=== PATIENT | male | born 1985 | race Caucasian/White ===

== ENCOUNTER 2021-09-23 19:47 | Emergency (ER) | payer SELFPAY ==
[~2021-09-23] VITALS: Ht 175.3 cm; Wt 115.7 kg
[~2021-09-23 19:47] MED LIST: ACET325 PO; AMOCLA500 PO; AMOCLA875 PO; AMOX500 PO; BENADRYL PRN; Bactrim Ds Tab1 EACH PO; CEPH500 PO; CIPR500 PO; HYDACE5 PO; HYDMOR2 PO; IBUP600 PO; NAPR375 PO; NAPR500 PO; NAPR550 PO; OXYACE5T PO; PENVK500 PO; PRED20 PO; PROM25 PO; RXCODACET PO; RXHYDACE PO; RXHYDMOR2 PO; SULTRIDS PO; Sudafed PO; TAMS.4ER PO; TRAM50 PO; [UNRECOGNIZED DRUG - OTHER]; [UNRECOGNIZED DRUG - REMARK]
[2021-09-23 21:01] LABS: BASOPHILS ABSOLUTE AUTO 0.02 K/mm3 (0.00-0.23); BASOPHILS PERCENT AUTO 0 % (0-2); EOSINOPHILS ABSOLUTE AUTO 0.14 K/mm3 (0.00-0.68); EOSINOPHILS PERCENT AUTO 2 % (0-6); Hemoglobin 10.7 g/dL (13.5-17.5); IMMATURE GRAN ABSOLUTE AUTO 0.07 K/mm3 (0.00-0.10); IMMATURE GRAN PERCENT AUTO 1 % (0-1); LYMPHOCYTES ABSOLUTE AUTO 2.31 K/mm3 (0.84-5.20); LYMPHOCYTES PERCENT AUTO 28 % (21-46); MONOCYTES ABSOLUTE AUTO 0.82 K/mm3 (0.16-1.47); MONOCYTES PERCENT AUTO 10 % (4-13); Mean Corpuscular HGB 26.3 pg (26.0-34.0); Mean Corpuscular HGB Conc 31.5 g/dL (31.5-36.5); Mean Corpuscular Volume 84 fL (80-100); Mean Platelet Volume 9.2 fL (9.1-12.4); NEUTROPHILS ABSOLUTE AUTO 4.82 K/mm3 (1.96-9.15); NEUTROPHILS PERCENT AUTO 59 % (41-73); Platelet Count 260 K/mm3 (150-400); RDW Coefficient Variation 13.4 % (11.7-14.2); RDW Standard Deviation 41.4 fL (35.1-46.3); Red Blood Cell Count 4.07 M/mm3 (4.30-5.90); White Blood Cell Count 8.18 K/mm3 (4.00-11.30)
[2021-09-23 21:29] LABS: Alanine Aminotransfer (ALT/SGP 63 U/L (12-78); Albumin, Blood 2.6 g/dL (3.4-5.0); Albumin/Globulin Ratio 0.4 (0.8-1.8); Alk Phos 68 U/L (50-136); Anion Gap 4 mmol/L (6-16); Aspartate Aminotrans (AST/SGOT 58 U/L (12-37); Bilirubin, Total 0.3 mg/dL (0.1-1.0); Blood Urea Nitrogen 14 mg/dL (8-24); Bun/Creatinine Ratio 18.2 (12.0-20.0); CO2, Blood 29 mmol/L (21-32); Calcium, Blood 9.1 mg/dL (8.5-10.1); Chloride, Blood 102 mmol/L (98-108); Creatinine, Blood 0.77 mg/dL (0.60-1.20); Glomerular Filtration Rate >60 (60-); Glucose, Blood 105 mg/dL (70-99); Potassium, Blood 4.4 mmol/L (3.5-5.5); Sodium, Blood 135 mmol/L (136-145); Total Protein, Blood 9.6 g/dL (6.4-8.2)
[2021-09-23] MEDS ORDERED: CEPH500 PO (22:29)
== END 2021-09-23 22:37 | disposition home or self-care (01) ==
LOC: ER 19:47
PROVIDERS: Physician Assistant
DX: L03.115 Cellulitis of right lower limb (principal); L03.116 Cellulitis of left lower limb; E11.9 Type 2 diabetes mellitus without complications; F17.200 Nicotine dependence, unspecified, uncomplicated
CPT/HCPCS: 36415; 80053; 83605; 85025; 85651; 86140; 99284; A9270; J1885; J7030

== ENCOUNTER 2021-12-19 05:28 | Emergency (ER) | payer OTHER ==
[~2021-12-19] VITALS: Ht 175.3 cm; Wt 104.3 kg
[2021-12-19 06:21] LABS: BASOPHILS ABSOLUTE AUTO 0.03 K/mm3 (0.00-0.23); BASOPHILS PERCENT AUTO 0 % (0-2); EOSINOPHILS ABSOLUTE AUTO 0.08 K/mm3 (0.00-0.68); EOSINOPHILS PERCENT AUTO 1 % (0-6); Hematocrit 34.3 % (37.0-53.0); Hemoglobin 10.6 g/dL (13.5-17.5); IMMATURE GRAN ABSOLUTE AUTO 0.06 K/mm3 (0.00-0.10); IMMATURE GRAN PERCENT AUTO 1 % (0-1); LYMPHOCYTES ABSOLUTE AUTO 2.99 K/mm3 (0.84-5.20); LYMPHOCYTES PERCENT AUTO 23 % (21-46); MONOCYTES ABSOLUTE AUTO 0.94 K/mm3 (0.16-1.47); MONOCYTES PERCENT AUTO 7 % (4-13); Mean Corpuscular HGB 25.5 pg (26.0-34.0); Mean Corpuscular HGB Conc 30.9 g/dL (31.5-36.5); Mean Corpuscular Volume 83 fL (80-100); Mean Platelet Volume 9.7 fL (9.1-12.4); NEUTROPHILS ABSOLUTE AUTO 8.97 K/mm3 (1.96-9.15); NEUTROPHILS PERCENT AUTO 69 % (41-73); Platelet Count 240 K/mm3 (150-400); Red Blood Cell Count 4.15 M/mm3 (4.30-5.90); White Blood Cell Count 13.07 K/mm3 (4.00-11.30)
[2021-12-19 06:46] LABS: Alanine Aminotransfer (ALT/SGP 44 U/L (12-78); Albumin, Blood 2.9 g/dL (3.4-5.0); Albumin/Globulin Ratio 0.5 (0.8-1.8); Alk Phos 60 U/L (50-136); Anion Gap 4 mmol/L (6-16); Aspartate Aminotrans (AST/SGOT 34 U/L (12-37); Bilirubin, Total 0.3 mg/dL (0.1-1.0); Blood Urea Nitrogen 11 mg/dL (8-24); Bun/Creatinine Ratio 9.6 (12.0-20.0); CO2, Blood 31 mmol/L (21-32); Calcium, Blood 8.7 mg/dL (8.5-10.1); Chloride, Blood 103 mmol/L (98-108); Creatinine, Blood 1.14 mg/dL (0.60-1.20); Globulin, Blood 5.7 g/dL (2.2-4.0); Glomerular Filtration Rate >60 (60-); Glucose, Blood 91 mg/dL (70-99); Potassium, Blood 3.6 mmol/L (3.5-5.5); Sodium, Blood 138 mmol/L (136-145); Total Protein, Blood 8.6 g/dL (6.4-8.2)
[2021-12-19] MEDS ORDERED: FURO20 PO (07:27)
[2021-12-19] MEDS ORDERED: CLIN300 PO (07:27)
[2021-12-19] MEDS ORDERED: POTA10T PO (07:27)
== END 2021-12-19 08:15 | disposition home or self-care (01) ==
LOC: ER 05:28
PROVIDERS: Emergency Medicine
DX: L03.116 Cellulitis of left lower limb (principal); L03.115 Cellulitis of right lower limb; E11.9 Type 2 diabetes mellitus without complications; F17.210 Nicotine dependence, cigarettes, uncomplicated
CPT/HCPCS: 36415; 80053; 83605; 85025; 99283-25

== ENCOUNTER 2022-03-11 18:01 | Emergency (ER) | payer OTHER ==
[~2022-03-11] VITALS: Ht 172.7 cm; Wt 108.9 kg
[~2022-03-11 18:01] MED LIST changes: +CLIN300 PO; +FURO20 PO; +POTA10T PO
[2022-03-11] MEDS ORDERED: SILVADENE20 G1 TOP ×2 (18:13→18:39)
== END 2022-03-11 18:39 | disposition home or self-care (01) ==
LOC: ER 18:01
DX: Z76.0 Encounter for issue of repeat prescription (principal); E11.9 Type 2 diabetes mellitus without complications; F17.210 Nicotine dependence, cigarettes, uncomplicated; Z79.899 Other long term (current) drug therapy
CPT/HCPCS: 99281

== ENCOUNTER 2022-03-20 03:34 | Day surgery (SDC) | payer OTHER ==
[~2022-03-20 03:34] MED LIST changes: +SILVADENE20 G1 TOP
== END 2022-03-20 23:18 | disposition home or self-care (01) ==
LOC: WOUND 03:34
DX: E11.622 Type 2 diabetes mellitus with other skin ulcer (principal); L97.812 Non-pressure chronic ulcer of other part of right lower leg with fat layer exposed; L97.322 Non-pressure chronic ulcer of left ankle with fat layer exposed; L97.822 Non-pressure chronic ulcer of other part of left lower leg with fat layer exposed; L03.115 Cellulitis of right lower limb; I87.2 Venous insufficiency (chronic) (peripheral); R60.0 Localized edema; F17.200 Nicotine dependence, unspecified, uncomplicated
CPT/HCPCS: A9270; G0463

== ENCOUNTER 2022-06-02 01:37 | Emergency (ER) | payer OTHER ==
[~2022-06-02] VITALS: Ht 172.7 cm; Wt 102.1 kg
== END 2022-06-02 02:49 | disposition home or self-care (01) ==
LOC: ER 01:37
DX: I83.019 Varicose veins of right lower extremity with ulcer of unspecified site (principal); L97.919 Non-pressure chronic ulcer of unspecified part of right lower leg with unspecified severity
CPT/HCPCS: 99282

== ENCOUNTER → 2022-07-28 | Outpatient (CLI) | payer OTHER ==
[~2022-07-28] MED LIST changes: +BUSP10 PO; +HYDMOR4 PO
== END | disposition home or self-care (01) ==
LOC: LAB SHORT 17:06 → LAB 17:06
DX: L03.115 Cellulitis of right lower limb (principal)
CPT/HCPCS: 87070; 87075; 87147; 87205

== ENCOUNTER → 2022-08-03 | Outpatient (CLI) | payer OTHER ==
[2022-08-03 17:15] LABS: Albumin, Blood 2.1 g/dL (3.4-5.0); Albumin/Globulin Ratio 0.4 (0.8-1.8); Bilirubin, Direct 0.1 mg/dL (0.0-0.3); Bilirubin, Indirect 0.1 mg/dL (0.1-0.7); Bilirubin, Total 0.2 mg/dL (0.1-1.0); Bun/Creatinine Ratio 10.6 (12.0-20.0); Calcium, Blood 8.3 mg/dL (8.5-10.1); Creatinine, Blood 1.13 mg/dL (0.60-1.20); Globulin, Blood 5.3 g/dL (2.2-4.0); Potassium, Blood 3.6 mmol/L (3.5-5.5); Total Protein, Blood 7.4 g/dL (6.4-8.2)
[2022-08-05 06:11] LABS: HIV AB/P24 AG SCREEN Non Reactive (Non Reactive)
== END | disposition home or self-care (01) ==
LOC: LAB 17:01 → LAB SHORT 17:01
PROVIDERS: Family Medicine
DX: F11.20 Opioid dependence, uncomplicated (principal)
CPT/HCPCS: 80053; 82248; 86592; 86803; 87389

== ENCOUNTER 2022-09-06 18:38 | Emergency (ER) | payer OTHER | END 2022-09-06 20:25 | disposition home or self-care (01) | DX: E11.622 Type 2 diabetes mellitus with other skin ulcer (principal); L97.929 Non-pressure chronic ulcer of unspecified part of left lower leg with unspecified severity; L97.919 Non-pressure chronic ulcer of unspecified part of right lower leg with unspecified severity; F17.210 Nicotine dependence, cigarettes, uncomplicated ==

== ENCOUNTER 2022-09-22 17:53 | Emergency (ER) | payer OTHER ==
[~2022-09-22] VITALS: Ht 167.6 cm; Wt 97.5 kg
== END 2022-09-22 23:41 | disposition home or self-care (01) ==
LOC: ER 17:53
DX: E11.622 Type 2 diabetes mellitus with other skin ulcer (principal); L98.499 Non-pressure chronic ulcer of skin of other sites with unspecified severity; E11.42 Type 2 diabetes mellitus with diabetic polyneuropathy; F17.210 Nicotine dependence, cigarettes, uncomplicated
CPT/HCPCS: 99282

== ENCOUNTER 2022-10-10 21:17 | Observation (INO) | payer OTHER ==
[~2022-10-10] VITALS: Ht 177.8 cm; Wt 94.1 kg
[2022-10-10 22:30] LABS: BASOPHILS ABSOLUTE AUTO 0.03 K/mm3 (0.00-0.23); BASOPHILS PERCENT AUTO 0 % (0-2); EOSINOPHILS ABSOLUTE AUTO 0.14 K/mm3 (0.00-0.68); EOSINOPHILS PERCENT AUTO 1 % (0-6); Hemoglobin 9.5 g/dL (13.5-17.5); IMMATURE GRAN ABSOLUTE AUTO 0.04 K/mm3 (0.00-0.10); IMMATURE GRAN PERCENT AUTO 0 % (0-1); LYMPHOCYTES PERCENT AUTO 10 % (21-46); MONOCYTES PERCENT AUTO 10 % (4-13); Mean Corpuscular HGB 22.6 pg (26.0-34.0); Mean Corpuscular HGB Conc 29.7 g/dL (31.5-36.5); Mean Corpuscular Volume 76 fL (80-100); Mean Platelet Volume 9.3 fL (9.1-12.4); NEUTROPHILS ABSOLUTE AUTO 8.76 K/mm3 (1.96-9.15); NEUTROPHILS PERCENT AUTO 78 % (41-73); Platelet Count 299 K/mm3 (150-400); RDW Coefficient Variation 15.3 % (11.7-14.2); RDW Standard Deviation 41.9 fL (35.1-46.3); White Blood Cell Count 11.17 K/mm3 (4.00-11.30)
[2022-10-10 22:47] LABS: Magnesium, Blood 1.8 mg/dL (1.6-2.4)
[2022-10-10 22:48] LABS: International Normalized Ratio 1.12; Prothrombin Time Results 11.7 Sec (9.7-11.5)
[2022-10-10 22:49] LABS: Alanine Aminotransfer (ALT/SGP 59 U/L (12-78); Albumin, Blood 2.2 g/dL (3.4-5.0); Albumin/Globulin Ratio 0.4 (0.8-1.8); Alk Phos 48 U/L (50-136); Anion Gap 3 mmol/L (6-16); Aspartate Aminotrans (AST/SGOT 52 U/L (12-37); Bilirubin, Direct <0.1 mg/dL (0.0-0.3); Bilirubin, Indirect Unable to Calculate mg/dL (0.1-0.7); Bilirubin, Total 0.2 mg/dL (0.1-1.0); Blood Urea Nitrogen 15 mg/dL (8-24); Bun/Creatinine Ratio 18.1 (12.0-20.0); CO2, Blood 31 mmol/L (21-32); Calcium, Blood 8.1 mg/dL (8.5-10.1); Chloride, Blood 104 mmol/L (98-108); Creatinine, Blood 0.83 mg/dL (0.60-1.20); Glomerular Filtration Rate 116 (60-); Glucose, Blood 89 mg/dL (70-99); Phosphorus, Blood 2.5 mg/dL (2.5-4.9); Sodium, Blood 138 mmol/L (136-145); Total Protein, Blood 7.2 g/dL (6.4-8.2)
[2022-10-10] MEDS ORDERED: METF500 PO (22:50)
[2022-10-11 02:44] LABS: U Amphetamine Screen DETECTED; U Barbituate Screen Not Detected; U Benzodiazapine Screen Not Detected; U Buprenorphine Screen Not Detected; U Cannabinoids Screen Not Detected; U Cocaine Screen Not Detected; U Methadone Screen Not Detected; U Methamphetamine Screen DETECTED; U Opiates Screen DETECTED; U Oxycodone Screen Not Detected; U Phencyclidine Screen Not Detected; U Propoxyphene Screen Not Detected
--- NOTE | 2022-10-11 03:36 | NUR ---
PATIENT IS A NEW ADMIT FROM THE ED. AXOX 4 AND ABLE TO SELF SLIDE OVER FROM GURNEY TO BED. REPORTS CAN'T WALK ON ULCERATIVE WOUNDS TO BLE. USES CRUTHCES AT HOME. DENIES CHEST PAIN, SOB, AND N/V. PHOTO AND BLOOD CONSENT SIGNED AND IN CHART. BLE WOUND PHOTOS TAKEN AND IN CHART. REPORTS NON-COMPLIANT WITH WOUND CLINIC. REPORTS CHRONIC WOUNDS X TWO PLUS YEARS OLD. FOUL ODOR WITH PURULENT DRAINAGE. HX METH-FENTANYL USE. REPORTS USING METH DAILY. URINE COLLECTED AND SENT TO LAB. ON ROOM AIR. POWERGLIDE PLACED IN ED. NS AT 125 mL/HR AFTER IV VANCO INFUSED. VSS/AFEBRILE. ORIENTED TO ROOM AND CALL LIGHT SYSTEM. FOOD ITEMS GIVEN PER DIET ORDER. WCTM.
--- NOTE | 2022-10-11 07:04 | NUR ---
PATIENT HAVING INCREASED AGITATION WHEN IV PUMP STARTED TO BEEP. HE THREW LARGE WATER CONTAINER ON FLOOR. PULLED IV PB LINE OFF PUMP AND THREW ACROSS ROOM. NS INFUSING LINE COMPROMISED AND LEAKING ON FLOOR FROM HIM PULLING ON IT. PATIENT CONTINUED TO YELL AND SCREAM. REPORTED TO ONCOMING RN TO RESTART NS @ 125mL/HR.
--- NOTE | 2022-10-11 17:48 | NUR ---
SHIFT SUMMARY PTN WITH LOWER EXTREMITY CELLULITIS AND WOUNDS. WOUND CARE CONSULT ORDERED. TODAY WE CLEANED AND DRESSED THE WOUNDS WITH XEROFORM AND COVERED WITH KERLIX. PTN LEGS MORE COMFORTABLE AFTER DRESSED AND TORADOL FOR PAIN. PTN HAD SOME OUTBURSTS EARLY IN SHIFT, BUT HAS SETTLED TO A BETTER DEMEANER THIS AFTERNOON. HIS LEGS JUMP OR TWITCH, THOUGH HE HAS RESTED SOME. ANTIBIOTICS BEING INFUSED. PICTURES OF WOUNDS PLACED IN THE CHART ON LAST SHIFT. CONTINUE TO MONITOR.
[2022-10-12 02:39] LABS: Vancomycin, Trough 16.3 ug/mL (5.0-10.0)
--- NOTE | 2022-10-12 06:04 | NUR ---
DIRECTOR OF OPTIMIZATION SUMMARY: A&Ox2-3 WITH INTERMITTENT CONFUSION REQUIRING REORIENTATION. HAVING INCREASED SPASTIC MOVEMENTS OF LIMBS D/T DRUG WITHDRAWALS. GIVEN ORDER FOR ONE TIME DOSE OF HYDROXYZINE 25MG WITH NO RELIEF OF Sx. PRN TRAMADOL AND APAP WITHOUT RELIEF. COMPLETE BED CHANGE D/T BM SOIL AND DECREASED AWARENESS OF BODY FUNCTIONS. POWERGLIDE SUSAN CONTINUOUSLY OCCLUDING; HAS TAKEN SEVERAL HOURS FOR ABx TO INFUSE AND HAS THEREFORE GOTTEN BEHIND ABx SCHEDULE. NEW POWERGLIDE PLACED IN LUE THIS AM. PATENT, FLUSHES AND IS INFUSING 0200 VANCO AT THIS TIME. CONTINUES TO HAVE EXTREMELY SPASTIC MOVEMENTS OF EXTREMITIES AND MUMBLING NONSENSICALS, BUT WILL CLEARLY COMMUNICATE NEEDS WHEN NOT TRYING TO SLEEP. VSS, THOUGH LOW-GRADE FEVER LAST NIGHT. WILL REPORT TO ONCOMING RN.
--- NOTE | 2022-10-12 08:00 | NUR ---
pt laying in bed with eyes closed, wakes easily, is refusing cbg's, asked him about it, he said he didn't know why, a/ox3, lungs are dim with fine crackles to bases, on r/a, resp even and unlabored, no cough noted, hrr, power glide to asaf site is clear and patent, using urinal to void, can be incont, has wounds to b/l le, dressings in place, will change today, mamorena, bed rest, hortensia, call light in reach.
--- NOTE | 2022-10-12 13:01 | NUR ---
pt vomited all over floor and bedside table, zofran administered, pt not eating lunch, did allow kiln operator to check blood glucose. call light in reach.
--- NOTE | 2022-10-12 16:58 | NUR ---
pt dressings were changed, they were pretty wet, redressed the same as what was on. linen changed, new gown placed, periarea cleaned. warm blanket given and tramadol for comfort. call light in reach.
--- NOTE | 2022-10-12 18:41 | NUR ---
no acute changes this shift, is allowing blood glucose to be checked, stated her really didn't feel good this afternoon this was reported to Dr. Turpin, had dressings changed, wound care nurse will be in tomorrow, no further changes this shift. call light in reach.
[2022-10-13 05:46] LABS: Hematocrit 28.9 % (37.0-53.0); Hemoglobin 8.7 g/dL (13.5-17.5); Mean Corpuscular HGB 22.3 pg (26.0-34.0); Mean Corpuscular HGB Conc 30.1 g/dL (31.5-36.5); Mean Corpuscular Volume 74 fL (80-100); Mean Platelet Volume 10.1 fL (9.1-12.4); Platelet Count 243 K/mm3 (150-400); RDW Coefficient Variation 15.7 % (11.7-14.2); RDW Standard Deviation 41.1 fL (35.1-46.3)
[2022-10-13 06:10] LABS: BASOPHILS PERCENT MAN 0 % (0-2); EOSINOPHILS PERCENT MAN 0 % (0-6); LYMPHOCYTES % ATYPICAL MANUAL 2 % (0-0); LYMPHOCYTES ABSOLUTE MAN 0.94 K/mm3 (0.84-5.20); LYMPHOCYTES PERCENT MAN 21 % (21-46); MONOCYTES ABSOLUTE MAN 0.49 K/mm3 (0.16-1.47); MONOCYTES PERCENT MAN 12 % (4-13); MYELOCYTE ABSOLUTE MAN 0.04 K/mm3 (0.00-0.00); MYELOCYTE PERCENT MAN 1 % (0-0); NEUTROPHILS ABSOLUTE MAN 2.62 K/mm3 (1.96-9.15); SEG NEUTROPHILS PERCENT MAN 64 % (41-73); TOTAL CELLS COUNTED 100
[2022-10-13 06:47] LABS: Bun/Creatinine Ratio 9.1 (12.0-20.0); Calcium, Blood 7.7 mg/dL (8.5-10.1); Creatinine, Blood 0.77 mg/dL (0.60-1.20); Potassium, Blood 3.2 mmol/L (3.5-5.5)
--- NOTE | 2022-10-13 07:33 | NUR ---
TRIAL PARALEGAL SUMMARY: A&Ox4. MUCH MORE ORIENTED AND COOPERATIVE WITH CARE THAN HE WAS LAST NIGHT. CALLS APPROPRIATELY AND IS ABLE TO COMMUNICATE NEEDS. POWERGLIDE IN MATT DRAWS AND FLUSHES WITHOUT DIFFICULTY. LABS DRAWN THIS AM AND CAP CHANGED. CONTINUES TO LAY IN BED AND HAS YET TO TRANSFER OR AMBULATE. REQUESTING FREQUENT SNACKS. NO ACUTE CONCERNS T/O THE NIGHT. SIGNIFICANT IMPROVEMENT IN SPASTICITY OF AND FLAILING OF LIMBS. ANTICIPATE WOUND CARE CONSULT TODAY. REPORT TO ONCOMING RN.
[2022-10-13 09:46] LABS: Vancomycin, Trough 17.3 ug/mL (5.0-10.0)
[2022-10-13] MEDS ORDERED: VISBIOME 112.51 EACH PO (12:15)
[2022-10-13] MEDS ORDERED: AMOCLA875 PO (12:15)
--- NOTE | 2022-10-13 14:44 | NUR ---
DISCHARGE SUMMARY PATIENT ORIENTED WHEN AWAKE. PROJECTILE VOMITED X1 THIS AM. OTHERWISE TOLERATING ADA DIET. BLE CELLULITIS WOUND DRESSING CHANGED BY WOUND RN. DISCHARGE ORDERS GIVEN. DISCHARGE INSTRUCTIONS GIVEN ON WOUND CARE, NEW RXS, AND FOLLOW UP WITH WOUND CLINIC AND PCP. MICHAEL NIEVES. PATIENT LEFT UNIT AT 1320 VIA WHEELCHAIR FOR HOME VIA TAXI.
== END 2022-10-13 13:24 | disposition home or self-care (01) ==
LOC: ER 21:17 → MEDS 21:18
PROVIDERS: Emergency Medicine; Internal Medicine; Nurse Practitioner Acute Care; ADMIT Family Medicine
DX: L03.116 Cellulitis of left lower limb (principal); L03.115 Cellulitis of right lower limb; E11.9 Type 2 diabetes mellitus without complications; F15.10 Other stimulant abuse, uncomplicated; B19.20 Unspecified viral hepatitis C without hepatic coma; M17.0 Bilateral primary osteoarthritis of knee; M19.072 Primary osteoarthritis, left ankle and foot; M19.071 Primary osteoarthritis, right ankle and foot; S81.802A Unspecified open wound, left lower leg, initial encounter; S81.801A Unspecified open wound, right lower leg, initial encounter
CPT/HCPCS: 73701; 80048; 80053; 80202; 82248; 82947; 83605; 83735; 84100; 85025; 85610; 85730; 87040; 93005; 93010; 96361; 96365; 96366; 96367; 96368; 96372; 96375; 96376; 99285-25; A9270; C1751; G0378; J0295; J1170; J1650; J1885; J2405; J2543; J3370; J7030; J7050; Q9967

== ENCOUNTER 2022-11-04 08:51 | Inpatient (IN) | payer OTHER ==
[~2022-11-04] VITALS: Ht 172.7 cm; Wt 73.2 kg
[~2022-11-04 08:51] MED LIST changes: +METF500 PO; +VISBIOME 112.51 EACH PO
[2022-11-04 12:51] LABS: BASOPHILS ABSOLUTE AUTO 0.03 K/mm3 (0.00-0.23); BASOPHILS PERCENT AUTO 0 % (0-2); EOSINOPHILS ABSOLUTE AUTO 0.18 K/mm3 (0.00-0.68); EOSINOPHILS PERCENT AUTO 1 % (0-6); IMMATURE GRAN ABSOLUTE AUTO 0.06 K/mm3 (0.00-0.10); IMMATURE GRAN PERCENT AUTO 0 % (0-1); LYMPHOCYTES ABSOLUTE AUTO 1.63 K/mm3 (0.84-5.20); LYMPHOCYTES PERCENT AUTO 12 % (21-46); MONOCYTES ABSOLUTE AUTO 1.33 K/mm3 (0.16-1.47); MONOCYTES PERCENT AUTO 10 % (4-13); Mean Corpuscular HGB 22.2 pg (26.0-34.0); Mean Corpuscular Volume 74 fL (80-100); Mean Platelet Volume 9.4 fL (9.1-12.4); NEUTROPHILS PERCENT AUTO 76 % (41-73); Platelet Count 328 K/mm3 (150-400); RDW Coefficient Variation 15.1 % (11.7-14.2); Red Blood Cell Count 4.06 M/mm3 (4.30-5.90); White Blood Cell Count 13.53 K/mm3 (4.00-11.30)
[2022-11-04 13:06] LABS: Albumin, Blood 1.9 g/dL (3.4-5.0); Albumin/Globulin Ratio 0.4 (0.8-1.8); Bilirubin, Total 0.2 mg/dL (0.1-1.0); Bun/Creatinine Ratio 9.8 (12.0-20.0); Calcium, Blood 8.5 mg/dL (8.5-10.1); Creatinine, Blood 1.22 mg/dL (0.60-1.20); Globulin, Blood 4.8 g/dL (2.2-4.0); Potassium, Blood 3.1 mmol/L (3.5-5.5); Total Protein, Blood 6.7 g/dL (6.4-8.2)
[2022-11-04 16:33] VITALS: BP 131/74
--- NOTE | 2022-11-04 17:23 | NUR ---
PT ARRIVED TO THE MEDICAL FLOOR VIA GURNEY FROM THE ER. PT WAS DROWSY PT WAS SLIDE TO THE BED. PT ORIENTED TO THE CALL SYSTEM AND ROOM LAYOUT. CALL LIGHT IN REACH. WILL CONTINUE TO MONITOR AND ASSESS FOR CHANGES
[2022-11-04 22:58] LABS: U Amphetamine Screen DETECTED; U Barbituate Screen Not Detected; U Benzodiazapine Screen Not Detected; U Buprenorphine Screen Not Detected; U Cannabinoids Screen Not Detected; U Cocaine Screen Not Detected; U Methadone Screen Not Detected; U Methamphetamine Screen DETECTED; U Opiates Screen Not Detected; U Oxycodone Screen Not Detected; U Phencyclidine Screen Not Detected; U Propoxyphene Screen Not Detected
[2022-11-05 03:27] VITALS: BP 130/51
[2022-11-05 05:08] LABS: BASOPHILS ABSOLUTE AUTO 0.02 K/mm3 (0.00-0.23); BASOPHILS PERCENT AUTO 0 % (0-2); EOSINOPHILS ABSOLUTE AUTO 0.15 K/mm3 (0.00-0.68); EOSINOPHILS PERCENT AUTO 2 % (0-6); Hematocrit 27.3 % (37.0-53.0); Hemoglobin 8.4 g/dL (13.5-17.5); IMMATURE GRAN ABSOLUTE AUTO 0.05 K/mm3 (0.00-0.10); IMMATURE GRAN PERCENT AUTO 1 % (0-1); LYMPHOCYTES ABSOLUTE AUTO 1.94 K/mm3 (0.84-5.20); LYMPHOCYTES PERCENT AUTO 21 % (21-46); MONOCYTES PERCENT AUTO 12 % (4-13); Mean Corpuscular HGB 22.5 pg (26.0-34.0); Mean Corpuscular HGB Conc 30.8 g/dL (31.5-36.5); Mean Corpuscular Volume 73 fL (80-100); NEUTROPHILS ABSOLUTE AUTO 5.89 K/mm3 (1.96-9.15); NEUTROPHILS PERCENT AUTO 65 % (41-73); Platelet Count 272 K/mm3 (150-400); RDW Coefficient Variation 15.3 % (11.7-14.2); RDW Standard Deviation 40.4 fL (35.1-46.3); Red Blood Cell Count 3.73 M/mm3 (4.30-5.90); White Blood Cell Count 9.15 K/mm3 (4.00-11.30)
[2022-11-05 05:37] LABS: Bun/Creatinine Ratio 9.5 (12.0-20.0); Calcium, Blood 7.8 mg/dL (8.5-10.1); Creatinine, Blood 1.05 mg/dL (0.60-1.20); Magnesium, Blood 1.7 mg/dL (1.6-2.4); Potassium, Blood 3.5 mmol/L (3.5-5.5)
--- NOTE | 2022-11-05 06:35 | NUR ---
A/OX3-4; UNABLE/UNWILLING TO STATE YEAR. DROWSY/ SLOW TO RESPOND/ FLAT AFFECT. NO NON-VERBAL S/S PAIN PRESENT AT THIS TIME; SLEEPING T/O SHIFT EXCEPT DURING BRIEF INTURUPTIONS FOR VITALS, ASSESSMENTS, AND URINAL USE. UA FOR TOX SCREEN COLLECTED PER ORDERS. IND WITH URINAL. NOT OOB FOR THIS RN. IVF AND IV ABX PER ORDERS UNTIL R ARM POWERGLIDE INFILTRATED AT APPROX 0330. RETAIL BANKER AT BEDSIDE ATEMPTING POWERGLIDE PLACEMENT. NPO TODAY FOR POSSIBLE WOUND DEBRIDEMENT. SLEEP PROMOTED. CALL LIGHT IN REACH; ENCOURAGED TO MAKE NEEDS KNOWN. BED ALARM SET.
[2022-11-05 07:37] VITALS: BP 133/76
[2022-11-05 14:45] VITALS: BP 126/93
--- NOTE | 2022-11-05 18:06 | NUR ---
SHIFT SUMMARY- PT WAS SEEN BY PHYSICIAN FOR WOUND DEBRIDEMENT AT THE BEGINNING OF THE SHIFT. PLS SEE ORDER FOR WOUND CARE. PT TOLORATED DRESSING REMOVAL WELL. PT AGREED WITH PROVIDER THAT HE WOULD CONTINUE WITH NECESSARY CARE TO HELP AVOID IN AMPUTATION OF THE LOWER EXTREMETIES. PROVIDER STATED TO THE PT THAT HE NEEDED TO TAKE A SHOWER TO HELP REMOVE ANY LOOSE TISSUE REMAINING FROM THE DRESSING REMOVAL BEFORE REDRESSING THE WOUNDS. PT DECLINED A SHOWER AND BECAME EXTREMELY AGGITATED. HE STATED THAT HE WANTED HIS LEG DRESSINGS APPLIED IMMEDIATELY. PT HIT TOP OF BED WITH FISTS AND THEN SNAPPED THE IV PRIMARY LINE. 2ND RN IN THE ROOM TO ASSIST WITH REWRAPPING THE PT LEGS ORDERED. TREATED PT FOR PAIN PER THE EMAR. PT IS ALERT AND ORIENTED X4. HE IS SITING UP IN BED EATING DINNER AND IS CALM. HE DENIES NEEDING ANYTHING AT THIS TIME. PT HAS PERSONAL CRUTCHES IN THE ROOM. PT EDUCATED ON THE IMPORTANCE OF CALLING FOR ASSISTANCE WITH CALL LIGHT BEFORE GETTING OUT OF BED. CALL LIGHT IS WITHIN REACH AND BED IS IN THE LOWEST POSITION.
[2022-11-05 20:59] VITALS: BP 148/80
[2022-11-06 04:59] VITALS: BP 134/86
[2022-11-06 06:18] LABS: BASOPHILS ABSOLUTE AUTO 0.01 K/mm3 (0.00-0.23); BASOPHILS PERCENT AUTO 0 % (0-2); EOSINOPHILS ABSOLUTE AUTO 0.04 K/mm3 (0.00-0.68); EOSINOPHILS PERCENT AUTO 1 % (0-6); IMMATURE GRAN ABSOLUTE AUTO 0.03 K/mm3 (0.00-0.10); IMMATURE GRAN PERCENT AUTO 1 % (0-1); LYMPHOCYTES ABSOLUTE AUTO 1.49 K/mm3 (0.84-5.20); LYMPHOCYTES PERCENT AUTO 31 % (21-46); MONOCYTES ABSOLUTE AUTO 0.55 K/mm3 (0.16-1.47); MONOCYTES PERCENT AUTO 11 % (4-13); Mean Corpuscular HGB 22.2 pg (26.0-34.0); Mean Corpuscular HGB Conc 30.8 g/dL (31.5-36.5); Mean Corpuscular Volume 72 fL (80-100); Mean Platelet Volume 9.5 fL (9.1-12.4); NEUTROPHILS ABSOLUTE AUTO 2.77 K/mm3 (1.96-9.15); NEUTROPHILS PERCENT AUTO 57 % (41-73); Platelet Count 248 K/mm3 (150-400); RDW Coefficient Variation 15.1 % (11.7-14.2); RDW Standard Deviation 39.5 fL (35.1-46.3); White Blood Cell Count 4.89 K/mm3 (4.00-11.30)
[2022-11-06 06:44] LABS: Albumin, Blood 1.4 g/dL (3.4-5.0); Anion Gap 6 mmol/L (6-16); Blood Urea Nitrogen 7 mg/dL (8-24); Bun/Creatinine Ratio 7.9 (12.0-20.0); CO2, Blood 25 mmol/L (21-32); Calcium, Blood 7.4 mg/dL (8.5-10.1); Chloride, Blood 110 mmol/L (98-108); Creatinine, Blood 0.89 mg/dL (0.60-1.20); Glomerular Filtration Rate 114 (60-); Glucose, Blood 116 mg/dL (70-99); Phosphorus, Blood 3.2 mg/dL (2.5-4.9); Potassium, Blood 3.1 mmol/L (3.5-5.5); Sodium, Blood 141 mmol/L (136-145)
[2022-11-06 07:28] VITALS: BP 137/77
[2022-11-06 14:38] VITALS: BP 129/84
--- NOTE | 2022-11-06 19:28 | NUR ---
SHIFT SUMMARY- PER MD, ELEVATE LEGS. CONTINUE WITH WOUND CARE ORDERED. PT DROWSY AND ORIENTED X4. EDUCATED PT ON THE CONTINUED NEED FOR WOUND DRESSING CHANGES. PT AGREED AND PRE MEDICATED PER THE EMAR FOR PROCEDURE. PT HAS BEEN CALM AND COOPERATIVE THROUGHOUT THE DAY. UP TO THE BATHROOM WITH NURSE SUPERVISING. PT UPPER AND LOWER BODY HAS BEEN TWITCHING AND JERKING. PT TOLORATED WOUND CARE WELL WITH PRE AND POST PAIN MEDICATION PER THE EMAR.
[2022-11-06 20:46] VITALS: BP 139/87
[2022-11-07 04:15] VITALS: BP 141/85
--- NOTE | 2022-11-07 05:04 | NUR ---
Summary: Patient aox4. No acute events overnight. IV abx given. Vss. Wound care competed this morning. Patient could not tolerate shower with water but assisted patient into restroom to give him a sponge bath and changed bedding. Patient voids in urinal. Medicate per EMAR for pain. Call light in reach. Patient calls appropriately.
[2022-11-07 05:20] LABS: BASOPHILS ABSOLUTE AUTO 0.02 K/mm3 (0.00-0.23); BASOPHILS PERCENT AUTO 0 % (0-2); EOSINOPHILS ABSOLUTE AUTO 0.08 K/mm3 (0.00-0.68); EOSINOPHILS PERCENT AUTO 1 % (0-6); Hematocrit 27.3 % (37.0-53.0); Hemoglobin 8.3 g/dL (13.5-17.5); IMMATURE GRAN ABSOLUTE AUTO 0.05 K/mm3 (0.00-0.10); IMMATURE GRAN PERCENT AUTO 1 % (0-1); LYMPHOCYTES ABSOLUTE AUTO 1.87 K/mm3 (0.84-5.20); LYMPHOCYTES PERCENT AUTO 28 % (21-46); MONOCYTES ABSOLUTE AUTO 0.62 K/mm3 (0.16-1.47); MONOCYTES PERCENT AUTO 9 % (4-13); Mean Corpuscular HGB 22.1 pg (26.0-34.0); Mean Corpuscular HGB Conc 30.4 g/dL (31.5-36.5); Mean Corpuscular Volume 73 fL (80-100); Mean Platelet Volume 9.8 fL (9.1-12.4); NEUTROPHILS ABSOLUTE AUTO 4.03 K/mm3 (1.96-9.15); NEUTROPHILS PERCENT AUTO 61 % (41-73); Platelet Count 283 K/mm3 (150-400); RDW Coefficient Variation 15.2 % (11.7-14.2); Red Blood Cell Count 3.76 M/mm3 (4.30-5.90); White Blood Cell Count 6.67 K/mm3 (4.00-11.30)
[2022-11-07 06:22] LABS: Ferritin, Serum 31 ng/mL (26-388); Iron Serum 14 ug/dL (65-175)
[2022-11-07 06:28] LABS: Albumin, Blood 1.4 g/dL (3.4-5.0); Anion Gap 6 mmol/L (6-16); Blood Urea Nitrogen 8 mg/dL (8-24); Bun/Creatinine Ratio 8.4 (12.0-20.0); CO2, Blood 24 mmol/L (21-32); Calcium, Blood 7.8 mg/dL (8.5-10.1); Chloride, Blood 110 mmol/L (98-108); Creatinine, Blood 0.96 mg/dL (0.60-1.20); Glomerular Filtration Rate 105 (60-); Glucose, Blood 93 mg/dL (70-99); Percent Saturation 7.4 % (20.0-50.0); Potassium, Blood 3.4 mmol/L (3.5-5.5); Sodium, Blood 140 mmol/L (136-145); Total Iron Binding Capacity 188 ug/dL (250-450)
[2022-11-07 07:42] VITALS: BP 134/82
[2022-11-07 14:57] VITALS: BP 117/70
--- NOTE | 2022-11-07 17:44 | NUR ---
ALERT AND ORIENTED X3, MAKES NEEDS KNOWN, SLEPT ON AND OFF THROUGHOUT THE DAYS, EASILY AROUSES AND BACK TO SLEEP, STARTED IRON IV REPLACMENT THERAPY, GOOD APPETITE, REFUSED PT/OT TODAY, MINIMAL INTERACTION BUT PLEASANT TO CARE, CALL LIGHT WITH IN REACH
[2022-11-07 21:09] VITALS: BP 131/79
[2022-11-08 03:20] VITALS: BP 123/69
--- NOTE | 2022-11-08 05:22 | NUR ---
Summary: Patient AOx4. IV abx given. Vss. Wound care competed this morning. Patient did not tolerate wound care very well. Pain meds given one hour before dressing change to prep. He began punching himself in the face and yelling once the dressings were completely removed stating that it hurt and he can't stand to look at the wounds. Nurse requested another staff member to bedside for remainder of dressing change for safety. Patient verbally de-escalated and wounds quickly covered. Minimal cleaning was able to be done. Patient did not want complete shower with water but assisted patient into restroom to give him a sponge bath and changed bedding. Patient voids in urinal. Medicated per EMAR for pain. Call light in reach. Patient calls appropriately. Increased appetite.
[2022-11-08 07:14] VITALS: BP 140/93
[2022-11-08 15:40] VITALS: BP 130/83
--- NOTE | 2022-11-08 17:52 | NUR ---
SHIFT SUMMARY PATIENT IS ALERT AND ORIENTED. PATIENT HAS HAD NO ACUTE EVENTS THIS SHIFT. VITAL SIGNS REVIEWED. PATIENT HAS NOT COMPLAINED OF PAIN, SOB, NAUSEA OR VOMITTING THIS SHIFT. PATIENT WAS PREMEDICATED FOR PAIN FOR WOUND CARE THAT WAS DONE. PATIENT HAS HAD NO OTHER COMPLAINTS THIS SHIFT. BED IN LOCKED AND LOWEST POSITION. CALL LIGHT IN PLACE.
[2022-11-08 19:50] VITALS: BP 128/86
[2022-11-09 04:08] VITALS: BP 122/76
[2022-11-09 05:18] LABS: Bun/Creatinine Ratio 10.5 (12.0-20.0); Calcium, Blood 7.4 mg/dL (8.5-10.1); Creatinine, Blood 0.86 mg/dL (0.60-1.20); Magnesium, Blood 1.8 mg/dL (1.6-2.4); Phosphorus, Blood 3.5 mg/dL (2.5-4.9); Potassium, Blood 3.4 mmol/L (3.5-5.5)
--- NOTE | 2022-11-09 06:16 | NUR ---
Summary: No acute events overnight. Patient AOx4. Ambulates with walker independently to restroom. VSS. Wound care completed this morning. IV abx given. Call light in reach. Pain meds given for wound care.
[2022-11-09 07:23] VITALS: BP 132/86
[2022-11-09 15:31] VITALS: BP 137/90
--- NOTE | 2022-11-09 16:24 | NUR ---
SHIFT SUMMARY: NO ACUTE CHANGES THIS SHIFT. PATIENT A&OX4. CALM, PLEASANT AND COOPERATIVE c CARE. USES CALL LIGHT APPROPRIATELY AND ABLE TO ADVOCATE FOR HIS NEEDS. PATIENT DENIES CP/CHEST PRESSURE. DRESSING CHANGED TO BLE PER WOUND CARE ORDER THIS AM AND TOLERATED WELL. PATIENT REPORT PAIN TO BLE MEDICATED X1 c PO TRAMADOL AND X1 c TORADOL IV. PATIENT REPORT OF ADEQUATE RELIEF. USES URINAL IN BED INDEPENDENTLY. RECEIVED IV ABX. VITAL SIGNS REVIEWED. CALL LIGHT IN REACH.
[2022-11-09 20:41] VITALS: BP 123/81
[2022-11-10 04:15] VITALS: BP 133/88
--- NOTE | 2022-11-10 04:32 | NUR ---
SUMMARY: PT A/OX4, CALLS APPROPRIATELY TO SPECIFY NEEDS AND IS PLEASANT W/CARE. HE USES URINAL INDEPENDENTLY AND REPOSITIONS SELF IN BED. PT REQUESTED MULTIPLE SNACKS/BEVERAGES T/O NIGHT BUT REMAINS NONCOMPLIANT W/ADA DIET AND IS NO LONGER GETTING ACCUCHECKS. HE'S BEEN MEDICATED W/IV TORADOL AND PO ULTRAM FOR TOLERABLE RELIEF OF BLE PAIN. PLAN TO CHANGE DX'S TO BLE'S PER WOUND CARE ORDERS AND WILL PRE/POST MEDICATED FOR PAIN. IV ABX RECIEVED THEN SL'D. NO ACUTE CHANGES, VSS/AFEBRILE. WCTM AND REPORT TO DAY RN.
[2022-11-10 07:24] VITALS: BP 137/85
[2022-11-10 14:45] VITALS: BP 131/85
--- NOTE | 2022-11-10 19:21 | NUR ---
SHIFT SUMMARY: NO CHANGES THIS SHIFT. PATIENT A&OX4. CALM, PLEASANT AND COOPERATIVE c CARE. USES CALL LIGHT APPROPRIATELY AND ABLE TO ADVOCATE FOR HIS NEEDS. RECEIVED SCHEDULED ABX THIS SHIFT. DR. GALINDO SAW PATIENT TODAY. RECEIVED ORDER FROM DR. GALINDO TO CHANGED WOUND DRESSING DAILY INSTEAD OF BID. PATIENT RECEIVED SHOWER AND LINEN CHANGED THIS SHIFT. DRESSING CHANGED TO BLE PER WOUND CARE ORDER. VITAL SIGNS REVIEWED. BED ALARM ON FOR SAFETY. CALL LIGHT IN REACH.
--- NOTE | 2022-11-11 04:58 | NUR ---
SUMMARY: PT A/OX4, CALLS APPROPRIATELY AND IS PLEASANT/COOPERATIVE W/CARE. HE USES URINAL INDEPENDENTLY AND IS 1PA W/FWW OOB BUT REMAINED IN BED T/O NOCTE. DAILY DX'S TO BLE'S REMAIN INTACT AND WERE CHANGED ON DAY SHIFT, SEE PHOTOS FOR DETAILS. ABX RECIEVED PER EMAR AND PRN ULTRAM PROVIDED FOR TOLERABLE RELIEF OF LEG PAIN. PT REQ'S SNACKS/DRINKS OFTEN AND CONT'S TO BE NONCOMPLIANT W/ADA DIET. NO ACUTE CHANGES, VSS/AFEBRILE. WCTM AND REPORT TO DAY RN.
[2022-11-11 05:45] VITALS: BP 128/81
[2022-11-11 07:18] VITALS: BP 136/87
[2022-11-11 07:41] LABS: BASOPHILS ABSOLUTE AUTO 0.02 K/mm3 (0.00-0.23); BASOPHILS PERCENT AUTO 0 % (0-2); EOSINOPHILS ABSOLUTE AUTO 0.21 K/mm3 (0.00-0.68); EOSINOPHILS PERCENT AUTO 4 % (0-6); Hematocrit 29.1 % (37.0-53.0); Hemoglobin 8.7 g/dL (13.5-17.5); IMMATURE GRAN ABSOLUTE AUTO 0.04 K/mm3 (0.00-0.10); IMMATURE GRAN PERCENT AUTO 1 % (0-1); LYMPHOCYTES ABSOLUTE AUTO 1.74 K/mm3 (0.84-5.20); LYMPHOCYTES PERCENT AUTO 32 % (21-46); MONOCYTES ABSOLUTE AUTO 0.47 K/mm3 (0.16-1.47); MONOCYTES PERCENT AUTO 9 % (4-13); Mean Corpuscular HGB 22.4 pg (26.0-34.0); Mean Corpuscular HGB Conc 29.9 g/dL (31.5-36.5); Mean Corpuscular Volume 75 fL (80-100); Mean Platelet Volume 9.7 fL (9.1-12.4); NEUTROPHILS ABSOLUTE AUTO 2.94 K/mm3 (1.96-9.15); NEUTROPHILS PERCENT AUTO 54 % (41-73); Platelet Count 259 K/mm3 (150-400); RDW Coefficient Variation 15.9 % (11.7-14.2); RDW Standard Deviation 41.1 fL (35.1-46.3); Red Blood Cell Count 3.89 M/mm3 (4.30-5.90); White Blood Cell Count 5.42 K/mm3 (4.00-11.30)
[2022-11-11 08:00] LABS: Calcium, Blood 7.8 mg/dL (8.5-10.1); Creatinine, Blood 0.8 mg/dL (0.60-1.20); Potassium, Blood 3.7 mmol/L (3.5-5.5)
--- NOTE | 2022-11-11 14:43 | NUR ---
attempted to see will return.
[2022-11-11 14:51] VITALS: BP 130/80
--- NOTE | 2022-11-11 17:53 | NUR ---
SHIFT SUMMARY- PT IS A/O, PLESANT AND COOPERATIVE. HE IS EATING AND DRINKING WELL. HE SLEPT FOR MUCH OF THIS SHIFT. PAIN MEDICATION PER DEC. BANDAGES WERE CHANGED THIS SHIFT WITH ORTHO. 1 TIME DOSE OF PAIN MEDICATION DURNING DRESSING CHANGE. HE IS AMBULATING TO THE RESTROOM. HIS BED IS IN THE LOW POSITION AND CALL LIGHT IS WITHIN REACH.
[2022-11-11 21:24] VITALS: BP 138/82
[2022-11-12 05:12] VITALS: BP 117/80
[2022-11-12 07:15] VITALS: BP 153/86
--- NOTE | 2022-11-12 07:51 | NUR ---
BERNARDO SLEPT WELL OVERNIGHT. MEDICATED TWICE WITH TRAMADOL FOR BILAT LOWER LEG PAIN. VOIDING CLEAR ISHA URINE INTO THE URINAL. PATIENT WAS PLEASANT AND COOPERATIVE WITH CARE. BOTH DRESSINGS ARE CLEAN, DRY AND INTACT.
[2022-11-12 15:37] VITALS: BP 137/92
--- NOTE | 2022-11-12 17:45 | NUR ---
SHIFT SUMMARY PT AOX4, COOPERATIVE WITH CARE. BLE BANDAGES CHANGED THIS SHIFT, ORDERS ARE IN THE CHART. PT COMPLETED A VAS THIS SHIFT, RESULTS ARE PENDING. C/O PAIN AND MEDICATED PER THE EMAR. FULL BED CHANGE WAS ALSO DONE. HE IS A SBA TO THE BATHROOM BUT ALSO USES A URINAL. WILL REPORT TO ONCOMING NURSE.
[2022-11-12 20:09] VITALS: BP 167/95
--- NOTE | 2022-11-13 04:28 | NUR ---
SHIFT SUMMARY NOC PT A/O X 4. NO ACUTE CHANGES TO REPORT. PT ON ABX UNASYN Q6H FOR BLE CELLULITIS. DRESSING C/D/I AND CHANGED DURING DAY ON 11/12/22. PT PLEASANT AND COOPERATIVE WITH CARE. PG IN MATT DOES NOT DRAW. PT HAS WOUND CARE CONSULT ORDERED. PLAN OF CARE IS CONTINUE IV ABX AND POSSIBLE SKIN GRAFTING WITH TIMETABLE AROUND 2 MONTHS. PT IS CURRENTLY RESTING WITH BED IN LOWEST POSITION AND CALL LIGHT WITHIN REACH. WCTM.
[2022-11-13 06:04] VITALS: BP 134/75
[2022-11-13 07:15] VITALS: BP 159/94
--- NOTE | 2022-11-13 15:27 | NUR ---
WOUND CARE BL ROXY COMPLETE AND WNL. BL COMPRESSION THERAPY INITIATED. BL WOUND CLEANSED WITH NS. BARRIER CREAM APPLIED TO PERIWOUNDS. CALCIUM ALGINATE TO WOUND BEDS, COVERED WITH EXU-DRY, THREE LAYER COMPRESSION. CARPENTER REFRIGERATOR WILL FOLLOW PT AND CHANGE WRAPS. IF THEY SLIP OR PT DOES NOT TOLERATE OKAY FOR PRIMARY RN TO APPLY XEROFORM AND COVER ABD, ROLLED GAUZE. NEW PHOTO IN HARD CHART, ORDERS IN [place]. PT TOLERATED WELL
[2022-11-13 17:01] VITALS: BP 148/74
--- NOTE | 2022-11-13 17:14 | NUR ---
SHIFT SUMMARY NO ACUTE CHANGES DURING SHIFT. PT ALERT AND ORIENTED, CALLS APPROPRIATELY. PT SEEN BY WOUND CARE, DRESSINGS CHANGED FOLLOWING SHOWER. CONTINUE IV ABX. PT REMAINS ON RA, SPO2 > 92%. PT INDEPENDENT IN RA. WILL CONTINUE TO MONITOR. CALL LIGHT WITHIN REACH.
[2022-11-13 19:46] VITALS: BP 130/68
[2022-11-14 05:09] VITALS: BP 130/79
--- NOTE | 2022-11-14 06:16 | NUR ---
ADOBE DEVELOPER SUMMARY NO ACUTE EVENTS. PT A/OX4. ABLE TO MAKE NEEDS KNOWN. PERIODS OF WAKEFULNESS T/O THE NIGHT. DRESSINGS T/BLE CDI. PT CONT T/REPORT PAIN 04/26 IN BLE; MEDS P/EMAR. PT INDEPENDENT IN ROOM. USING URINAL TO VOID. CALL APPROPRIATELY; LIGHT ACCESSIBLE; BED LOCKED/LOW.
[2022-11-14 07:56] VITALS: BP 117/60
[2022-11-14 15:43] VITALS: BP 125/64
--- NOTE | 2022-11-14 17:09 | NUR ---
SHIFT SUMMARY: PT ALERT AND ORIENTED X4. PT HAS BEEN PLEASANT AND COOPERATIVE WITH ALL CARE. POWERGLIDE FLUSHING EASILY WITH UNASYN Q6. PT TOLERATING WELL. PT HAS BEEN SLEEPING SEVERAL HOURS THIS SHIFT BUT WILL WAKE EASILY. PT AND CHART STATE WOUND NURSE WILL BE CHANGING AND ADRESSING BLE WOUNDS. METHADONE ADDED TO PT MEDICATION RECORD. PT C/O PAIN TWICE THIS SHIFT IN BLE. TRAMADOL D/C BUT WAS ABLE TO GIVE TYLENOL. PT USING URINAL TO VOID. CALL LIGHT IN REACH. BED IN LOWEST POSITION. WILL CONTINUE TO MONITOR.
[2022-11-14 20:01] VITALS: BP 107/73
[2022-11-15 03:29] VITALS: BP 117/70
--- NOTE | 2022-11-15 04:16 | NUR ---
SHIFT SUMMARY NO ACUTE CHANGES THIS SHIFT. AOX4. VSS. REPORTS MILD 4/10 PAIN IN BLE WOUNDS, STATES WAY BETTER THEN PREVIOUS 04/26. DENIES NEED FOR PAIN MEDICATION. TOLERATED AMBULATING PALATINE TONIGHT c SBY ASSIST & FWW. BLE ARE WRAPPED IN BANDAGES & DRESSINGS ARE C/D/I, NO DRAINAGE NOTED. CALL LIGHT IN REACH & PT ABLE TO MAKE NEEDS KNOWN. WILL MONITOR.
[2022-11-15 07:44] VITALS: BP 123/62
[2022-11-15 15:21] VITALS: BP 126/68
--- NOTE | 2022-11-15 16:55 | NUR ---
SHIFT SUMMARY: PT A&OX4. PT HAS BEEN PLEASANT AND COOPERATIVE WITH ALL CARE. NO ACUTE CHANGES THIS SHIFT. IV ANTIBIOTIC D/C. PT WORRIED ABOUT NOT GETTING MEDICATION. NO C/O PAIN THIS SHIFT. DRESSINGS ON BLE C/D/I. PT STATED HE WOULD LIKE TO GET UP AND WALK AROUND MUCH POSSIBLE. TOLERATED WALKING WELL PER POISING INSPECTOR REPORT. CALL LIGHT IN REACH. WILL CONTINUE TO MONITOR.
[2022-11-15 19:16] VITALS: BP 110/62
[2022-11-16 02:14] VITALS: BP 104/59
[2022-11-16 04:55] LABS: BASOPHILS ABSOLUTE AUTO 0.03 K/mm3 (0.00-0.23); BASOPHILS PERCENT AUTO 1 % (0-2); EOSINOPHILS ABSOLUTE AUTO 0.21 K/mm3 (0.00-0.68); EOSINOPHILS PERCENT AUTO 3 % (0-6); Hematocrit 31.7 % (37.0-53.0); Hemoglobin 9.4 g/dL (13.5-17.5); IMMATURE GRAN ABSOLUTE AUTO 0.01 K/mm3 (0.00-0.10); IMMATURE GRAN PERCENT AUTO 0 % (0-1); LYMPHOCYTES ABSOLUTE AUTO 2.14 K/mm3 (0.84-5.20); LYMPHOCYTES PERCENT AUTO 33 % (21-46); MONOCYTES ABSOLUTE AUTO 0.54 K/mm3 (0.16-1.47); MONOCYTES PERCENT AUTO 8 % (4-13); Mean Corpuscular HGB 23.4 pg (26.0-34.0); Mean Corpuscular HGB Conc 29.7 g/dL (31.5-36.5); Mean Corpuscular Volume 79 fL (80-100); Mean Platelet Volume 9.5 fL (9.1-12.4); NEUTROPHILS ABSOLUTE AUTO 3.49 K/mm3 (1.96-9.15); NEUTROPHILS PERCENT AUTO 54 % (41-73); Platelet Count 312 K/mm3 (150-400); RDW Coefficient Variation 18.2 % (11.7-14.2); RDW Standard Deviation 46.7 fL (35.1-46.3); Red Blood Cell Count 4.01 M/mm3 (4.30-5.90); White Blood Cell Count 6.42 K/mm3 (4.00-11.30)
--- NOTE | 2022-11-16 05:28 | NUR ---
SUMMARY: PT A/OX4, CALLS APPROPRIATELY TO SPECIFY NEEDS AND IS PLEASANT AND COOPERATIVE W/CARE. IV ABX WERE COMPLETED ON DAY SHIFT AND PG TO MATT IS REMAINS SL'D. DX'S TO BLE ARE C/D/I AND BEING CHANGED BY WOUND CARE CLINIC. HE REPORTS AMBULATING IN HIS ROOM IS GOING WELL AND HE USES URINAL AD ROBERT. PT DENIED PAIN AND ALL OTHER COMPLAINTS. VSS/AFEBRILE, NO ACUTE CHANGES. WCTM AND REPORT TO DAY RN.
[2022-11-16 05:38] LABS: Bun/Creatinine Ratio 22.6 (12.0-20.0); Calcium, Blood 8.5 mg/dL (8.5-10.1); Creatinine, Blood 0.98 mg/dL (0.60-1.20); Potassium, Blood 4.1 mmol/L (3.5-5.5)
[2022-11-16 08:05] VITALS: BP 103/60
--- NOTE | 2022-11-16 12:50 | NUR ---
WOUND CARE BL COMPRESSION WRAPS CHANGED. PT IS TOLERATING COMPRESSION WELL. PT MOVED FROM A THREE LAYER WRAP TO A FOUR LAYER WRAP. PLAN FOR VENOUS REFLUX STUDY NEXT COMPRESSION CHANGE. ALL WOUND SHOWING IMPROVEMENT. PT TOLERATED WELL
[2022-11-16 15:31] VITALS: BP 121/68
--- NOTE | 2022-11-16 16:28 | NUR ---
SHIFT SUMMARY: PT A&O X4. PLEASANT AND COOPERATIVE WITH ALL CARE THIS SHIFT. NO ACUTE CHANGES WITH PT. BLE WOUND DRESSINGS ASSESSED AND CHANGED BY KO IN WOUND. STATED WOUNDS ARE DOING MUCH BETTER AND WILL BE BACK WEDNESDAY TO CHANGE AGAIN. PT WAS ABLE TO TAKE A SHOWER W/O DRESSINGS PER MANNY CONNELL. PT STATED HE FEELS MUCH BETTER THAN HE HAS ON PREVIOUS DAYS. POWERGLIDE PATENT AND FLUSHING W/O COMPLICATIONS. NO C/O PAIN OR N/V THIS SHIFT. CALL LIGHT IN REACH. WILL CONTINUE TO MONITOR.
[2022-11-16 19:27] VITALS: BP 113/64
[2022-11-17 02:46] VITALS: BP 107/57
--- NOTE | 2022-11-17 04:30 | NUR ---
ENTRY LEVEL TRUCK DRIVER SUMMARY A&OX4. PATIENT EFFECTIVELY COMMUNICATES NEEDS. NO ACUTE EVENTS THROUGHOUT THE NIGHT. VSS. BILATERAL LOWER EXTREMITY LEG WRAPS C/D/I. PATIENT DENIED PAIN FOR THIS RN. BED LOW AND LOCKED. CALL LIGHT WITHIN REACH. THIS RN WILL CONTINUE TO CLOSELY MONITOR.
[2022-11-17 07:59] VITALS: BP 104/66
[2022-11-17 15:42] VITALS: BP 99/56
--- NOTE | 2022-11-17 16:47 | NUR ---
NO ACUTE CHANGES. PT AOX4 AND COOPERATIVE OF CARE. PT DENIED ANY PAIN AND HAS BEEN UP AMBULATING TODAY. PT HAS TAKEN A LOT OF LONG NAPS WELL. WRAPS ON LE ARE CLEAN DRY AND INTACT. CALL LIGHT IS WITHIN REACH WILL CONTINUE TO MONITOR.
[2022-11-17 19:11] VITALS: BP 113/60
--- NOTE | 2022-11-18 03:35 | NUR ---
GRADUATE RESEARCH ASSISTANT SUMMARY NO ACUTE EVENTS THROUGHOUT THE NIGHT. A&OX4. PATIENT EFFECTIVELY COMMUNICATES NEEDS. VSS. RR EVEN AND UNLABORED ON RA. BLE WRAPS C/D/I. NO PAIN REPORTED THIS SHIFT. PATIENT ONLY REQUEST OF CARE STAFF IS FOR SNACKS. BED LOW AND LOCKED. CALL LIGHT WITHIN REACH. THIS RN WILL CONTINUE TO MONITOR.
[2022-11-18 05:15] VITALS: BP 102/60
[2022-11-18 08:25] VITALS: BP 108/60
[2022-11-18 15:00] VITALS: BP 129/75
--- NOTE | 2022-11-18 16:17 | NUR ---
WOUND CARE BL WOUND CLEANSED WITH NS, PAT DRY WITH GAUZE, CALCIUM ALGINATE TO WOUND BEDS, COVERED WITH EXU-DRY, FOUR LAYER COMPRESSION WRAPS. IR CONSULT ORDERED FOR POSSIBLE VENOUS INTERNTION PER DR. GALINDO
--- NOTE | 2022-11-18 17:45 | NUR ---
NO ACUTE CHANGES TODAY. PT IS AOX4 AND COOPERATIVE OF CARE. PT HAD BILATERAL WRAPS REDONE TODAY AND A VENOUS DOPPLER WAS COMPLETE PRIOR TO REWRAP. PT TREATED FOR LE PAIN PER EMAR. NO DISTRESS NOTED INDEPENDENT IN ROOM WILL CONTINUE TO MONITOR.
[2022-11-18 19:38] VITALS: BP 104/54
--- NOTE | 2022-11-19 03:42 | NUR ---
WAREHOUSE INCENTIVE SELECTOR SUMMARY NO ACUTE EVENTS THROUGHOUT THE NIGHT. A&OX4. PATIENT EFFECTIVELY COMMUNICATES NEEDS. VSS. RR EVEN AND UNLABORED ON RA. NO PAIN REPORTED TO THIS RN. BED LOW AND LOCKED. CALL LIGHT WITHIN REACH. CONTINUED MONITORING.
[2022-11-19 03:56] VITALS: BP 106/59
[2022-11-19 07:19] VITALS: BP 132/60
[2022-11-19 15:05] VITALS: BP 106/70
[2022-11-19 19:20] VITALS: BP 125/67
--- NOTE | 2022-11-19 19:31 | NUR ---
SHIFT SUMMARY PTN RESTS MOST OF DAY. HERE FOR BLE CELLULITIS, UNNA BOOTS APPLIED YESTERDAY BY WOUND CARE. PTN AWAITING PLACEMENT. CONTINUE TO MONITOR.
[2022-11-20 03:26] VITALS: BP 113/55
--- NOTE | 2022-11-20 04:16 | NUR ---
PATIENT ALERT AND ORIENTED X4, INDEPENDENT, ROOM AIR, NO TELE, URINAL IN REACH BUT PATIENT GOES TO RESTROOM WITHOUT ASSIST, LFA POWERGLIDE DOES NOT DRAW BLOOD, REGULAR DIET, UNNA BOOTS APPLIED BY WOUNDCARE ON 11/18, WAITING PLACEMENT, NO EVENTS OVERNIGHT
[2022-11-20 08:00] VITALS: BP 126/60
[2022-11-20 15:16] VITALS: BP 119/63
--- NOTE | 2022-11-20 17:20 | NUR ---
SHIFT SUMMARY PTN SEEN BY WOUND CARE TODAY AFTER DRAINAGE NOTED COMING THROUGH DRESSINGS. 4-LAYER DRESSINGS WERE REAPPLIED BILATERALLY AFTER CLEANING, DRYING, TREATING BY KO. DR BELTRAN IN TO SEE PTN. NO UNTOWARD EVENTS TO REPORT. CONTINUE TO FOLLOW.
[2022-11-20 19:36] VITALS: BP 113/56
--- NOTE | 2022-11-21 05:54 | NUR ---
PATIENT ALERT AND ORIENTED, INDEPENDENT, STARTED MELATONIN LAST NIGHT TO HELP PATIENT SLEEP, NO EVENTS OVERNIGHT
[2022-11-21 07:52] VITALS: BP 124/73
[2022-11-21 15:44] VITALS: BP 121/65
--- NOTE | 2022-11-21 18:17 | NUR ---
NO ACUTE CHANGES AT THIS TIME.PT CONTINUES TO BE INDEPENDENT. PT DENIES PAIN AND HAS CALL LIGHT WITHIN REACH. WILL CONTINUE TO MONITOR.
[2022-11-21 19:24] VITALS: BP 101/49
[2022-11-22 03:31] VITALS: BP 136/50
--- NOTE | 2022-11-22 05:39 | NUR ---
PATIENT ALERT AND ORIENTED, ROOM AIR, INDEPENDENT, NO EVENTS OVERNIGHT, PLACEMENT ISSUE
[2022-11-22 07:32] VITALS: BP 104/53
--- NOTE | 2022-11-22 17:03 | NUR ---
NO ACUTE CHANGES AT THIS TIME. PT INDEPENDENT IN ROOM. MORE ODOR IS COMMING FROM WOUNDS ON LEGS. WRAP IS LEAKING A BIT ON L LEG. WOUND DRESSINGS TO BE CHANGED WEDNESDAY BY WOUND CARE NURES PER ORDER. NO DISTRESS NOTED WILL CONTINUE TO MONITOR. CALL LIGHT WITHIN REACH.
[2022-11-22 21:11] VITALS: BP 137/65
[2022-11-23 02:35] VITALS: BP 140/61
--- NOTE | 2022-11-23 03:38 | NUR ---
PATIENT ALERT AND ORIENTED, ROOM AIR, POWERGLIDE THAT DOES NOT DRAW, NO TELE, INDEPENDENT, WOUND CARE TO DO DRSG CHANGES, NO EVENTS OVERNIGHT
[2022-11-23 05:10] LABS: BASOPHILS ABSOLUTE AUTO 0.03 K/mm3 (0.00-0.23); BASOPHILS PERCENT AUTO 1 % (0-2); EOSINOPHILS ABSOLUTE AUTO 0.13 K/mm3 (0.00-0.68); EOSINOPHILS PERCENT AUTO 3 % (0-6); Hematocrit 27.6 % (37.0-53.0); Hemoglobin 8.4 g/dL (13.5-17.5); IMMATURE GRAN ABSOLUTE AUTO 0.01 K/mm3 (0.00-0.10); IMMATURE GRAN PERCENT AUTO 0 % (0-1); LYMPHOCYTES ABSOLUTE AUTO 1.09 K/mm3 (0.84-5.20); LYMPHOCYTES PERCENT AUTO 28 % (21-46); MONOCYTES ABSOLUTE AUTO 0.68 K/mm3 (0.16-1.47); MONOCYTES PERCENT AUTO 18 % (4-13); Mean Corpuscular HGB 24.1 pg (26.0-34.0); Mean Corpuscular HGB Conc 30.4 g/dL (31.5-36.5); Mean Corpuscular Volume 79 fL (80-100); Mean Platelet Volume 9.9 fL (9.1-12.4); NEUTROPHILS ABSOLUTE AUTO 1.94 K/mm3 (1.96-9.15); NEUTROPHILS PERCENT AUTO 50 % (41-73); Platelet Count 199 K/mm3 (150-400); RDW Coefficient Variation 18.8 % (11.7-14.2); RDW Standard Deviation 53.7 fL (35.1-46.3); Red Blood Cell Count 3.48 M/mm3 (4.30-5.90); White Blood Cell Count 3.88 K/mm3 (4.00-11.30)
[2022-11-23 05:34] LABS: Albumin, Blood 2.1 g/dL (3.4-5.0); Albumin/Globulin Ratio 0.5 (0.8-1.8); Bilirubin, Total 0.2 mg/dL (0.1-1.0); Bun/Creatinine Ratio 23.3 (12.0-20.0); Calcium, Blood 8.5 mg/dL (8.5-10.1); Creatinine, Blood 0.86 mg/dL (0.60-1.20); Globulin, Blood 4.2 g/dL (2.2-4.0); Potassium, Blood 3.9 mmol/L (3.5-5.5); Total Protein, Blood 6.3 g/dL (6.4-8.2)
[2022-11-23 08:17] VITALS: BP 100/65
[2022-11-23 14:41] LABS: IMMATURE RETIC FRACTION 11.9 % (2.3-16.0); RETICULOCYTE ABSOLUTE 0.0699 M/mm3 (0.0200-0.1100); RETICULOCYTE COUNT PERCENT 1.93 % (0.50-2.50)
[2022-11-23 15:02] LABS: Percent Saturation 7.6 % (20.0-50.0)
[2022-11-23 16:38] VITALS: BP 110/83
--- NOTE | 2022-11-23 16:59 | NUR ---
WOUND CARE BLE WOUND CARE COMPLETED PER ORDER. CHANGE WAS PAINFUL WITH 10/10 PAIN REPORTED. BLE WOUNDS ARE HYPERGRANULATED AND FRIABLE. PHOTOS NOT TAKEN TODAY D/T PT PAIN LEVEL WHEN EXPOSED TO AIR. PLAN IS FOR THIS RN TO HAVE TOPICAL LIDOCAINE AVAILIBLE FOR NEXT DRESSING CHANGE. THIS RN IS HOPING TO GET COMPRESSION WRAP CHANGES TO TWICE WEEKLY WITH NEXT CHANGE WEDNESDAY. THIS RN WILL CHECK PT WRAPS ON WED TO CHECK FOR SATURATION.
--- NOTE | 2022-11-23 18:54 | NUR ---
SHIFT SUMMARYPT IS ALERT AND ORIENTED X4. INDEPENDENT IN THE ROOM. PT IS CALM AND COOPERATIVE. PRN TYLENOL FOR PAIN. POWER GLIDE DRESSING CHANGED.
[2022-11-23 19:11] VITALS: BP 125/77
[2022-11-24 02:28] VITALS: BP 109/59
--- NOTE | 2022-11-24 04:12 | NUR ---
SHIFT SUMMARY NOC PT A/O X 4 PLEASANT AND COOPERATIVE TO CARE. PG IN MATT FLUSHES EASILY BUT DOES NOT DRAW. PRN TYLENOL OF PAIN. PT BLE DRESSING CHANGED BY WOUND CARE NURSE 11/23/22 AND ARE C/D/I. PT IS CURRENTLY RESTING IN BED WITH BED IN LOWEST POSITION, AND CALL LIGHT WITHIN REACH. TM.
[2022-11-24 08:04] VITALS: BP 120/64
[2022-11-24 15:34] VITALS: BP 121/68
--- NOTE | 2022-11-24 17:03 | NUR ---
SHIFT SUMMARY NO ACUTE CHANGES DURING SHIFT. PT ALERT AND ORIENTED, CALLS APPROPRIATELY. DRESSINGS TO BLE CDI. WOUND CARE NURSE TO COME WEDNESDAY TO RECHECK DRESSINGS. PT STARTED IV IRON X 5 DAYS. NO C/O PAIN. WILL CONTINUE TO MONITOR. CALL LIGHT WITHIN REACH.
[2022-11-24 19:22] VITALS: BP 129/72
[2022-11-25 03:17] VITALS: BP 117/74
--- NOTE | 2022-11-25 04:04 | NUR ---
SHIFT SUMMARY ADMITTED FOR BLE CELLULITIS. FULL CODE. PLAN IS FOR PLACEMENT FOR WOUND CARE. POWERGLIDE IN E. CONSULT IS DR. GALINDO. PT IS HOMELESS SO HX OF NON-COMPLIANCE WITH HEALTH CARE & MEDICATIONS, FOLLOW UP APPTMTS. RECENT HX OF IV DRUG USE. REGULAR DIET. A&O X4. WOUND CARE IS CHANGING DRESSINGS. SEVERE IRON DEFICIENCY. IV IRON REPLACEMENT X5 DAYS SCHEDULED
[2022-11-25 07:50] VITALS: BP 123/72
[2022-11-25 15:19] VITALS: BP 119/54
--- NOTE | 2022-11-25 15:43 | NUR ---
CALL PLACED TO DR OLIVAREZ; NOTIFIED THAT PAIN IS NOT CONTROLLED AFTER METHADONE AND TYLENOL THIS AM. PAIN REMAINS A 5/10. SERVICE PLUMBER DEFERRING DRESSING CHANGES UNTIL TOMORROW IN PART RELATED TO SEVERE PAIN WITH DRESSING CHANGES. ASKED THAT PT BE PREMEDICATED FOR CHANGES TOMORROW- DOESN'T WANT TO ADD PRN NARCS, BUT INSTRUCTED TO CALL HIM 3/9 BEFORE DRESSING CHANGE.
--- NOTE | 2022-11-25 19:22 | NUR ---
SUMMARY- PT A/O X4, IN BED WITH LEGS WRAPPED IN VENOUS WRAP AND COBAN, SHADOWING AND SS DRAINAGE WEAPING FROM HEALS, CHANGED DISP AIR BED CHUCKS THIS AM. FOUL SMELLING WITH NECROTIC FLESH. PT STATES PAIN IMPROVED AFTER MEDHIDONE FROM A 7 TO A 5, STATES HE WOULD BENEFIT FROM SOMETHING STRONGER THAN TYLENOL. DR NOTIFIED AND NO PRNS ORDERED. PT STATES THAT DRESSING CHANGES HAVE EXCRUCIATING, [facility] CONCURRS THAT PT COULD BENEFIT FROM [facility] PRE DRESSING CHANGE. INFO PASSED TO NOC RN. THIS RN SHOULD BE BACK TOMORROW AND ENSURE PAIN IS ADRESSED PRE-DRESSING CHANGE. PT TOLERATING FOOD AND FLUIDS. USES URINAL. ABLE TO AMBULATE TO BATHROOM PRN, STEADY ON FEET, BUT PAIN INCREASES. PT STATES GOOD SENSATION TO BLE, CMS INTACT.
[2022-11-25 19:23] VITALS: BP 126/77
[2022-11-26 02:41] VITALS: BP 117/55
--- NOTE | 2022-11-26 05:43 | NUR ---
SHIFT SUMMARY ADMITTED FOR CELLULITIS OF BLE. FULL CODE. PLAN IS FOR PLACEMENT FOR WOUND CARE. HE IS A&0 X4, INDEPENDENT, ON RA. DR. GALINDO IS CONSULT. TAPE DECK INSTALLER IS MANAGING VENOUS WRAP BANDAGES. PT IS CONCERNED ABOUT PAIN WITH DRESSING CHANGES. ON REGULAR DIET. HX OF HOMELESSNESS, IV DRUG ABUSE, VENOUS STASIS, HEP C, IRON DEFICIENT ANEMIA. HE IS PLEASANT AND COOPERATIVE WITH CARE
[2022-11-26 07:32] VITALS: BP 115/63
--- NOTE | 2022-11-26 10:09 | NUR ---
WOUND CARE NURSE AT BEDSIDE, CALLED DR OLIVAREZ FOR MORE PAIN MEDICATIONS, TRAMADOL GIVEN WITH TYLENOL PRIOR TO DRESSING CHANGE. MAKES NEEDS KNOWN, NO DISTRESS, PATIENT UNDERSTAND PAIN WILL NEVER BE COMPLETELY TAKEN AWAY WITH THE DEPTH OF HIS SHANIA LEG WOUNDS, CALL LIGHT WITH IN REACH
--- NOTE | 2022-11-26 13:45 | NUR ---
WOUND CARE BLE FOUR LAYER WRAPS CHANGED TODAY. TORADOL GIVEN AND BLE WRAPPED WITH TOPICAL LIDOCAINE IMPREGNATED GAUZE FOR 20 MINUTES. PAIN IMPROVED FROM LAST DRESSING CHANGE, BUT PT STILL IN CONSIDERABLE DISCOMFORT. WOUNDS ARE EXTREMELY HYPERGRANULATED AND FRIABLE SPOKE TO DR. GALINDO ABOUT SILVER NITRATE TO TREAT BUT GIVEN THE AMOUNT OF HYPERGRANUATION AND PAIN LEVEL A SURGICAL DEBRIDEMENT IS IDEAL. PLAN TO SPEAK AGAIN WITH DR. GALINDO WEDNESDAY. PRIMARY RN CONCERNED WITH WOUND ODOR. EDUCATED THAT THESE ARE HIGHLY EXUDATING VENOUS WOUNDS. GIVEN THE ETIOLOGY AND FOUR LAYER COMPRESSION WRAPS THE ODOR IS COMPLETELY NORMAL. 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 PT WOULD MOST BENEFIT FROM VENOUS INTERVENTION. SPOKE WITH DR. RAHMAN AND DR. OLIVAREZ IN PASSING TO SEE IF VENOUS INTERVENTION BY IR WOULD BE POSSIBLE WHILE PT IS INPATIENT. WHILE THIS IS NORMALLY DONE IN AN OUTPATIENT SETTING, CIRCUMSTANCES WOULD WARRENT INTERVENTION WHILE IN HOSPITAL CONSIDERING HE MAY BE ADMITTED UNTIL THESE VENOUS WOUNDS ARE HEALED. WC RN WILL RETURN WEDNESDAY 11/29 TO CHANGE COMPRESSION WRAPS
[2022-11-26 15:58] VITALS: BP 109/63
--- NOTE | 2022-11-26 17:27 | NUR ---
PATIENT COOPERATIVE TO CARE, TOLERATED SHANIA LEG DRESSING BETTER TODAY, MEDICATED WITH TYLENOL AND RAMADOL PRIOR TO WOUND CHANGE, SCHEDULED METHADONE GIVEN, RESTARTED ON ANTIBIOTIC, FOUL ODOR FROM LEG WOUND, EXPLORATION MANAGER CHANGES DRESSING, NEXT DRESSING CHANGE TO BE DONE OF Wednesday11/30/2022, REPORTED TO PULL OUT OPERATOR, MAKES NEEDS KNOWN, LS CLEAR, BT PRESENT, CALL LIGHT WITH IN REACH, WILL RELAY TO PM RN
[2022-11-26 19:50] VITALS: BP 121/77
--- NOTE | 2022-11-27 04:58 | NUR ---
SHIFT SUMMARY ADMITTED FOR BLE CELLULITIS. SEVERE IRON DEFICIENCY. FULL CODE. WOUND CARE IS MANAGING DRESSINGS. DRESSINGS CHANGED ON PREVIOUS SHIFT. HOPEFUL FOR PLACEMENT HE IS HOMELESS. POWERGLIDE IN E. DR. GALINDO IS ORTHO CONSULT. IV IRON INFUSIONS ARE SCHEDULED. INDEPENDENT IN ROOM. CONTINENT. METHADONE IS SCHEDULED. HX OF DRUG ABUSE, HOMELESSNESS, HEP C, VENOUS STASIS ULCERS, ANEMIA
[2022-11-27 05:43] VITALS: BP 111/53
[2022-11-27 05:49] LABS: BASOPHILS ABSOLUTE AUTO 0.02 K/mm3 (0.00-0.23); BASOPHILS PERCENT AUTO 1 % (0-2); EOSINOPHILS ABSOLUTE AUTO 0.17 K/mm3 (0.00-0.68); EOSINOPHILS PERCENT AUTO 5 % (0-6); Hematocrit 25.8 % (37.0-53.0); Hemoglobin 7.8 g/dL (13.5-17.5); IMMATURE GRAN ABSOLUTE AUTO 0.05 K/mm3 (0.00-0.10); IMMATURE GRAN PERCENT AUTO 1 % (0-1); LYMPHOCYTES ABSOLUTE AUTO 1.38 K/mm3 (0.84-5.20); LYMPHOCYTES PERCENT AUTO 39 % (21-46); MONOCYTES ABSOLUTE AUTO 0.76 K/mm3 (0.16-1.47); MONOCYTES PERCENT AUTO 22 % (4-13); Mean Corpuscular HGB 24.1 pg (26.0-34.0); Mean Corpuscular HGB Conc 30.2 g/dL (31.5-36.5); Mean Corpuscular Volume 80 fL (80-100); Mean Platelet Volume 10.1 fL (9.1-12.4); NEUTROPHILS ABSOLUTE AUTO 1.12 K/mm3 (1.96-9.15); NEUTROPHILS PERCENT AUTO 32 % (41-73); Platelet Count 238 K/mm3 (150-400); RDW Coefficient Variation 19.1 % (11.7-14.2); RDW Standard Deviation 55.4 fL (35.1-46.3); Red Blood Cell Count 3.23 M/mm3 (4.30-5.90)
[2022-11-27 07:10] VITALS: BP 111/53
[2022-11-27 16:06] VITALS: BP 109/65
--- NOTE | 2022-11-27 17:02 | NUR ---
Shift Summary A/Ox4, pleasant. BLE wraps intact, draining mostly on LLE. Calling appropriately for needs. PO abx and iron given. Good appetite. Methodone for pain relief. Awaiting placement.
[2022-11-27 19:09] VITALS: BP 114/67
[2022-11-28 02:07] VITALS: BP 115/63
--- NOTE | 2022-11-28 05:49 | NUR ---
ADOBE FLEX DEVELOPER SUMMARY NO ACUTE EVENTS. PT A/OX4. PLEASANT/COOPERATIVE. ABLE TO MAKE NEEDS KNOWN. PT EXPRESSED CONCERN OVER GOING TO [facility]--FEARFUL HE WILL NOT BE ABLE TO HEAL/GET ACCESS TO CARE HE NEEDS. PT BEDREST T/O THE NIGHT AND INDEPENDENT IN THE ROOM. USING URINAL AT BEDSIDE. BLE BANDAGES TO WOUNDS--WOUNDS WEAPING THROUGH BANDAGES; PAPER CHUCKS REPLACED. WOUND CARE MANAGING DRESSINGS--PER DAY SHIFT NURSE, PT BLEEDS A LOT DURING . WOUNDS ARE MALORDOROUS. CALL LIGHT IS ACCESSIBLE. BED LOCKED/LOW.
[2022-11-28 07:55] VITALS: BP 121/54
[2022-11-28 15:04] VITALS: BP 120/70
[2022-11-28 17:21] VITALS: BP 112/70
--- NOTE | 2022-11-28 17:52 | NUR ---
SHIFT SUMMARY: PT A&O X4. PT HAS BEEN COOPERATIVE WITH MOST CARE THIS SHIFT. PT BLE WOUNDS ARE WEEPING THROUGH NEAR ANKLES AND HEELS AND HAVE STRONG ODOR. PT WOULD LET ME LOOK AT BANDAGES BUT VERY HESITANT ON ALLOWING MEDICAL STAFF TO REDRESS WOUNDS. PT HAS BEEN VERY LETHARGIC AND DIFFICULT TO AROUSE THE PAST HOUR. RESPIRATIONS AT 8/MIN AND DILATED PUPILS. WHEN PT WOKE, HE RAMBLED ON AND STARED AT THE WALL. URINE TOX SCREEN ORDERED. IRON INFUSION RAN W/O COMPLICATIONS. PG PATENT AND FLUSHING. PT TOLERATING ORAL ABX. CALL LIGHT IN REACH. WILL CONTINUE TO MONITOR.
[2022-11-28 19:18] VITALS: BP 150/83
[2022-11-28 20:55] LABS: U Amphetamine Screen Not Detected; U Barbituate Screen Not Detected; U Benzodiazapine Screen Not Detected; U Buprenorphine Screen Not Detected; U Cannabinoids Screen Not Detected; U Cocaine Screen Not Detected; U Methadone Screen DETECTED; U Methamphetamine Screen Not Detected; U Opiates Screen Not Detected; U Oxycodone Screen Not Detected; U Phencyclidine Screen Not Detected; U Propoxyphene Screen Not Detected
[2022-11-29 03:43] VITALS: BP 106/72
--- NOTE | 2022-11-29 06:27 | NUR ---
BOILER TECHNICIAN SUMMARY PT A/OX4. PLEASANT AND COOPERATIVE. URINE SAMELE SENT F/TOX SCREEN--RETURN NEG FOR ALL EXCEPT METHADONE. BLE BANDAGES CONT TO WEEP; PAPER CHUCKS REPLACED. BANDAGES AROUND THE HEELS ARE HARD LIKE A CAST; PT DENIES N&T, CAP REFILL NOTED. PT STATES DRESSING CHANGES ARE VERY PAINFUL AND ADAMANT THAT WOUND NURSE DO CHANGES. PT ABLE TO MAKE NEEDS KNOWN. NO ACUTE EVENTS. CALL LIGHT IN REACH.
[2022-11-29 07:56] VITALS: BP 110/58
[2022-11-29 09:24] LABS: Hematocrit 27.4 % (37.0-53.0); Hemoglobin 8.3 g/dL (13.5-17.5); Mean Corpuscular HGB 24.6 pg (26.0-34.0); Mean Corpuscular HGB Conc 30.3 g/dL (31.5-36.5); Mean Corpuscular Volume 81 fL (80-100); Mean Platelet Volume 9.5 fL (9.1-12.4); Platelet Count 218 K/mm3 (150-400); RDW Coefficient Variation 19.9 % (11.7-14.2); RDW Standard Deviation 56.5 fL (35.1-46.3); Red Blood Cell Count 3.38 M/mm3 (4.30-5.90); White Blood Cell Count 3.96 K/mm3 (4.00-11.30)
[2022-11-29 15:25] VITALS: BP 121/75
--- NOTE | 2022-11-29 17:14 | NUR ---
SHIFT SUMMARY: PT A&O X4. NO ACUTE CHANGES THIS SHIFT. NO C/O PAIN OR N/V. TALKED TO PT AGAIN ABOUT ATTEMPTING TO CLEAN/CHANGE BLE WOUND DRESSINGS. PT DECLINED THIS OFFER. STATED HE WANTS WOUND NURSE TO CHANGE TOMORROW SINCE THEY ARE EXTREMELY PAINFUL TO CHANGE. HGB AT 8.3. HBA1C PENDING. PG PATENT AND FLUSHING. VSS. CALL LIGHT IN REACH. WILL CONTINUE TO MONITOR.
[2022-11-29 19:30] VITALS: BP 107/59
[2022-11-30 05:22] VITALS: BP 98/49
--- NOTE | 2022-11-30 06:01 | NUR ---
TREASURY REPRESENTATIVE SUMMARY PT A/OX4. ABLE TO MAKE NEEDS KNOW. PT HAS BLE WOUND DRESSINGS; PER ORDER TO BE CHANGED BY WOUND CARE NURSE. PT WOUNDS ARE SEEPING THROUGH THE BANDAGES AND SOILING PAPER CHUCKS--REPLACED THIS SHIFT. THE DRESSINGS ARE BECOMING STIFF/HARD AND VERY MALODOROUS; CIRCULATION INTACT. PT REFUSED TO ALLOW THIS NURSE TO CHANGE DRESSINGS OR THE DAY SHIFT NURSE. WOUND CARE TO COME 11/30/21. MATT POWER GLIDE REMOVED BECAUSE IT IS LEAKING. NO IV MEDS CURRENTLY ORDERED; ARCHITECTURAL ENGINEERING TEACHER/DR WELCH GAVE ORDER FOR NO IV ACCESS. PT TRENDING UP AT 8.6; A1C 5.0. REVIEWED VS; BP 98/49; PT ASYMPTOMATIC. CALL LIGHT ACCESSIBLE. PT INDEPENDENT IN ROOM.
[2022-11-30 07:31] VITALS: BP 138/70
[2022-11-30 15:43] VITALS: BP 122/55
--- NOTE | 2022-11-30 15:59 | NUR ---
WOUND CARE BLE FOUR LAYER WRAPS CHANGED TODAY. PT WITH SIGNIFICANTLY LESS BLEEDING THAN PREVIOUS CHANGES. BLE SOAKED WITH LIDOCAINE IMPREGNATED GAUZE FOR 20 MIN. HE WAS ABLE TO TOLERATE A SHOWER AND WOUND PHOTOS. BLE HYPERGRANUATED. SPOKE WITH DR. GALINDO WHO IS AGREEABLE TO SHARP DEBRIDEMENT. SPOKE WITH DIRECTOR WINDY WHO IS AGREEABLE TO ORDER PT HYDROFERA BLUE. RN WILL RETURN WED.
--- NOTE | 2022-11-30 16:40 | NUR ---
PT AOX4 AND COOPERATIVE OF CARE. NO ACUTE CHANGES PT ABLE TO MAKE ALL NEEDS KNOWN. LOWER EXTREMETY BANAGE WAS CHANGED BY WOUND NURSE. PT TREATED FOR PAIN PROIR TO DRESSING CHANGE. NO DISTRESS NOTED WILL CONTINUE TO MONITOR.
--- NOTE | 2022-11-30 19:03 | NUR ---
URINE WAS DARK BROWN IN COLOR PT STATES THIS IS NEW.
[2022-11-30 20:20] VITALS: BP 124/70
[2022-12-01] VITALS (8 sets, daily range): BP systolic 95–127; BP diastolic 58–75
[2022-12-01 08:45] LABS: BASOPHILS ABSOLUTE AUTO 0.02 K/mm3 (0.00-0.23); BASOPHILS PERCENT AUTO 1 % (0-2); EOSINOPHILS ABSOLUTE AUTO 0.09 K/mm3 (0.00-0.68); EOSINOPHILS PERCENT AUTO 2 % (0-6); Hematocrit 24.3 % (37.0-53.0); Hemoglobin 7.5 g/dL (13.5-17.5); IMMATURE GRAN PERCENT AUTO 2 % (0-1); LYMPHOCYTES ABSOLUTE AUTO 1.35 K/mm3 (0.84-5.20); LYMPHOCYTES PERCENT AUTO 31 % (21-46); MONOCYTES ABSOLUTE AUTO 0.59 K/mm3 (0.16-1.47); MONOCYTES PERCENT AUTO 14 % (4-13); Mean Corpuscular HGB 25.2 pg (26.0-34.0); Mean Corpuscular HGB Conc 30.9 g/dL (31.5-36.5); Mean Corpuscular Volume 82 fL (80-100); Mean Platelet Volume 10.2 fL (9.1-12.4); NEUTROPHILS ABSOLUTE AUTO 2.21 K/mm3 (1.96-9.15); NEUTROPHILS PERCENT AUTO 51 % (41-73); Platelet Count 237 K/mm3 (150-400); RDW Standard Deviation 60.3 fL (35.1-46.3); Red Blood Cell Count 2.98 M/mm3 (4.30-5.90); White Blood Cell Count 4.36 K/mm3 (4.00-11.30)
--- NOTE | 2022-12-01 14:16 | NUR ---
PT HAS POWERGLIDE IV TO LEFT UPPER ARM. IV FLUSHES WELL.
--- NOTE | 2022-12-01 14:17 | NUR ---
PT PREPARED FOR SURGERY IN ROOM. NO PREPARATIONS TO SURGICAL SITE NEEDED. PT A&OX4 AND ABLE TO MOVE HIMSELF IN BED.
--- NOTE | 2022-12-01 16:44 | NUR ---
12/01/22 1644 Omayra Lorenzo PER
--- NOTE | 2022-12-01 16:53 | NUR ---
PT HAS HAD NO ACUTE CHANGES. NPO TODAY PRIOR TO PROCEDURE WITH DR GALINDO. PT HAS BEEN AOX4 AND INDEPENDENT IN ROOM. NO DISTRESS NOTED. PT IS CURRENTLY DOWN IN PROCEDURE WAS TAKEN DOWN 1545.
--- NOTE | 2022-12-01 18:15 | NUR ---
PT BACK IN ROOM RESTING COMFORTABLY AND EATING DINNER. TREATED FOR PAIN PER EMAR LLE. NO DISTRESS NOTED AT THIS TIME.
[2022-12-01 20:51] LABS: BASOPHILS ABSOLUTE AUTO 0.04 K/mm3 (0.00-0.23); BASOPHILS PERCENT AUTO 0 % (0-2); EOSINOPHILS ABSOLUTE AUTO 0.01 K/mm3 (0.00-0.68); EOSINOPHILS PERCENT AUTO 0 % (0-6); Hematocrit 20.9 % (37.0-53.0); Hemoglobin 6.5 g/dL (13.5-17.5); IMMATURE GRAN ABSOLUTE AUTO 0.19 K/mm3 (0.00-0.10); IMMATURE GRAN PERCENT AUTO 2 % (0-1); LYMPHOCYTES ABSOLUTE AUTO 0.89 K/mm3 (0.84-5.20); LYMPHOCYTES PERCENT AUTO 8 % (21-46); MONOCYTES ABSOLUTE AUTO 0.22 K/mm3 (0.16-1.47); MONOCYTES PERCENT AUTO 2 % (4-13); Mean Corpuscular HGB 24.7 pg (26.0-34.0); Mean Corpuscular HGB Conc 31.1 g/dL (31.5-36.5); Mean Corpuscular Volume 80 fL (80-100); NEUTROPHILS ABSOLUTE AUTO 10.06 K/mm3 (1.96-9.15); NEUTROPHILS PERCENT AUTO 88 % (41-73); RDW Coefficient Variation 20.6 % (11.7-14.2); Red Blood Cell Count 2.63 M/mm3 (4.30-5.90); White Blood Cell Count 11.41 K/mm3 (4.00-11.30)
[2022-12-01 21:45] LABS: Mean Platelet Volume 9.8 fL (9.1-12.4); Platelet Count 172 K/mm3 (150-400)
[2022-12-02] VITALS (10 sets, daily range): BP systolic 91–117; BP diastolic 46–65
--- NOTE | 2022-12-02 11:12 | NUR ---
WOUND CARE BLE WOUND CARE TODAY. HYPERGRANULATION TISSUE DEBRIDED IN OR. MINIMAL BLEEDING NOTED WITH TODAYS DRESSING CHANGE. GRANULATION TISSUE IS FLUSH WITH PERIWOUND. PT PAINFUL WITH 10/10 PAIN WHEN WOUNDS OLIVIA. PT DECLINED TOPICAL LIDOCAINE TODAY HE "JUST WANTS TO GET THEM WRAPPED BACK UP" NO NEW PHOTO TODAY D/T PAIN LEVEL. EACH LEG UNDRESSED AND REDRESSED INDIVIDUALLY TO LIMIT EXPOSURE. THIS RN ASSISTED PT TO FOCUS ON BREATHING. WOUND CLEANSED NS, HYDROFERA BLUE TO WOUND BEDS, EXU-DRY, THEN BL FOUR LAYER COMPRESSION. WC RN WILL RETURN WEDNESDAY FOR DRESSING HANGE
[2022-12-02 13:52] LABS: Albumin, Blood 1.9 g/dL (3.4-5.0); Anion Gap 1 mmol/L (6-16); Blood Urea Nitrogen 25 mg/dL (8-24); Bun/Creatinine Ratio 26.7 (12.0-20.0); CO2, Blood 30 mmol/L (21-32); Calcium, Blood 7.8 mg/dL (8.5-10.1); Chloride, Blood 107 mmol/L (98-108); Creatinine, Blood 0.94 mg/dL (0.60-1.20); Glomerular Filtration Rate 108 (60-); Glucose, Blood 115 mg/dL (70-99); Phosphorus, Blood 3.3 mg/dL (2.5-4.9); Potassium, Blood 4.1 mmol/L (3.5-5.5); Sodium, Blood 138 mmol/L (136-145)
[2022-12-02 14:05] LABS: BASOPHILS ABSOLUTE AUTO 0.02 K/mm3 (0.00-0.23); BASOPHILS PERCENT AUTO 0 % (0-2); EOSINOPHILS ABSOLUTE AUTO 0.07 K/mm3 (0.00-0.68); EOSINOPHILS PERCENT AUTO 1 % (0-6); Hematocrit 18.8 % (37.0-53.0); IMMATURE GRAN PERCENT AUTO 4 % (0-1); LYMPHOCYTES ABSOLUTE AUTO 2.35 K/mm3 (0.84-5.20); LYMPHOCYTES PERCENT AUTO 24 % (21-46); MONOCYTES PERCENT AUTO 6 % (4-13); Mean Corpuscular HGB 26.2 pg (26.0-34.0); Mean Corpuscular HGB Conc 31.4 g/dL (31.5-36.5); Mean Corpuscular Volume 84 fL (80-100); NEUTROPHILS ABSOLUTE AUTO 6.47 K/mm3 (1.96-9.15); NEUTROPHILS PERCENT AUTO 65 % (41-73); Platelet Count 230 K/mm3 (150-400); RDW Coefficient Variation 20.1 % (11.7-14.2); RDW Standard Deviation 60.5 fL (35.1-46.3); Red Blood Cell Count 2.25 M/mm3 (4.30-5.90); White Blood Cell Count 9.91 K/mm3 (4.00-11.30)
[2022-12-02 17:21] LABS: Hemoglobin 5.9 g/dL (13.5-17.5)
--- NOTE | 2022-12-02 19:42 | NUR ---
PT ALERT NO S/S OF ACUTE DISTRESS, SAFETY MEASURES IN PLACE REPORT GIVEN TO ON COMING NURSE.
[2022-12-03 00:57] VITALS: BP 122/67
[2022-12-03 03:48] VITALS: BP 98/60
[2022-12-03 07:46] VITALS: BP 100/53
[2022-12-03 09:59] LABS: BASOPHILS ABSOLUTE AUTO 0.04 K/mm3 (0.00-0.23); BASOPHILS PERCENT AUTO 1 % (0-2); EOSINOPHILS ABSOLUTE AUTO 0.13 K/mm3 (0.00-0.68); EOSINOPHILS PERCENT AUTO 2 % (0-6); Hematocrit 22.5 % (37.0-53.0); Hemoglobin 7.3 g/dL (13.5-17.5); IMMATURE GRAN ABSOLUTE AUTO 0.59 K/mm3 (0.00-0.10); IMMATURE GRAN PERCENT AUTO 7 % (0-1); LYMPHOCYTES ABSOLUTE AUTO 2.23 K/mm3 (0.84-5.20); LYMPHOCYTES PERCENT AUTO 26 % (21-46); MONOCYTES ABSOLUTE AUTO 0.67 K/mm3 (0.16-1.47); MONOCYTES PERCENT AUTO 8 % (4-13); Mean Corpuscular HGB 27.4 pg (26.0-34.0); Mean Corpuscular HGB Conc 32.4 g/dL (31.5-36.5); Mean Corpuscular Volume 85 fL (80-100); Mean Platelet Volume 9.4 fL (9.1-12.4); NEUTROPHILS ABSOLUTE AUTO 4.97 K/mm3 (1.96-9.15); NEUTROPHILS PERCENT AUTO 58 % (41-73); NRBC ABSOLUTE 0.02 K/mm3 (0.00-0.02); NRBC Auto 0.2 /100 WBC (0.0-0.2); Platelet Count 222 K/mm3 (150-400); RDW Coefficient Variation 19.2 % (11.7-14.2); RDW Standard Deviation 58.9 fL (35.1-46.3); Red Blood Cell Count 2.66 M/mm3 (4.30-5.90); White Blood Cell Count 8.63 K/mm3 (4.00-11.30)
[2022-12-03 16:27] VITALS: BP 116/65
--- NOTE | 2022-12-03 19:16 | NUR ---
PT ALERT NO S/S OF ACUTE DISTRESS, SAFETY MEASURES IN PLACE REPORT GIVEN TO ON COMING NURSE.
[2022-12-03 19:24] VITALS: BP 100/65
[2022-12-04 02:43] VITALS: BP 113/58
[2022-12-04 06:27] LABS: Hematocrit 22.7 % (37.0-53.0); Hemoglobin 7.2 g/dL (13.5-17.5); Mean Corpuscular HGB 27.1 pg (26.0-34.0); Mean Corpuscular HGB Conc 31.7 g/dL (31.5-36.5); Mean Corpuscular Volume 85 fL (80-100); Mean Platelet Volume 9.4 fL (9.1-12.4); NRBC ABSOLUTE 0.04 K/mm3 (0.00-0.02); NRBC Auto 0.6 /100 WBC (0.0-0.2); Platelet Count 182 K/mm3 (150-400); RDW Coefficient Variation 19.4 % (11.7-14.2); RDW Standard Deviation 59.7 fL (35.1-46.3); Red Blood Cell Count 2.66 M/mm3 (4.30-5.90); White Blood Cell Count 6.51 K/mm3 (4.00-11.30)
[2022-12-04 08:14] VITALS: BP 122/70
--- NOTE | 2022-12-04 11:54 | NUR ---
WOUND CARE BLE FOUR LAYER WRAPS CHANGED PER ORDER. PT WITH 10 PAIN. PRIMARY RN ABLE TO GIVE FENTANYL. THIS DID NOT GIVE PT ADEQUATE PAIN RELIEF TOASTER ELEMENT REPAIRER ASSISTED WITH CALMING AND ABLE TO GIVE ADDITIONAL PAIN MEDICATION. WOUND BED FRIABLE. SOME HYPERGRANUALTION TISSUE FORMING. HYDROFERA BLUE AND COMPRESSION WILL ASSIST IN KEEPING THIS DOWN, BUT PT WILL MOST LIKELY NEED SILVER NITRATE NEXT WOUND CHANGE. WC RN WILL RETURN WEDNESDAY TO CHANGE DRESSINGS
[2022-12-04 15:36] VITALS: BP 121/63
[2022-12-04 19:16] VITALS: BP 117/74
--- NOTE | 2022-12-04 19:17 | NUR ---
PT ALERT NO S/S OF ACUTE DISTRESS, SAFETY MEASURES IN PLACE REPORT GIVEN TO ON COMING NURSE.
[2022-12-05 01:37] VITALS: BP 110/58
--- NOTE | 2022-12-05 05:09 | NUR ---
PT IS A&O4, INDEPENDENT WITH ADL'S, RA, VSS, PRN PAIN MEDICATION GIVEN PER EMAR, CONTINUE POC
[2022-12-05 07:24] VITALS: BP 113/69
[2022-12-05 15:18] VITALS: BP 104/68
--- NOTE | 2022-12-05 19:13 | NUR ---
PT ALERT NO S/S OF ACUTE DISTRESS, SAFETY MEASURES IN PLACE REPORT GIVEN TO ON COMING NURSE.
[2022-12-05 19:57] VITALS: BP 103/62
[2022-12-06 03:56] VITALS: BP 107/57
--- NOTE | 2022-12-06 06:05 | NUR ---
PATIENT AAOX4, DRESSING ON BILATERAL EXTREMITIES CDI, LOWED EXTRTEMITY INFLAMMATION NOTED. VOIDING WELL. NO ACUTE SAFETY CONCERNS AT THIS TIME.
[2022-12-06 07:30] VITALS: BP 119/65
[2022-12-06 15:24] VITALS: BP 105/68
--- NOTE | 2022-12-06 17:54 | NUR ---
SHIFT SUMMARY- VSS. PT APPETITE GOOD. BM X1. INDEPENDANT IN ROOM. ON RA. POWER GLIDE PATENT, INFUSING. BANDAGE INTACT. WOUND ODOUROUS, SOME YELLOW DRAINAGE ON CHUCKS NOTED. PT A@O X3. C/O PAIN IN AM, TREATED PER EMAR. WILL CONTINUE TO MONITOR. CALL LIGHT IN REACH.
[2022-12-06 19:29] VITALS: BP 128/62
[2022-12-07 03:24] VITALS: BP 105/69
--- NOTE | 2022-12-07 04:55 | NUR ---
POTTERY STRIPER SUMMARY NO ACUTE EVENTS THROUGHOUT THE NIGHT. A&OX4. PATIENT EFFECTIVELY COMMUNICATES NEEDS. VSS. RR EVEN AND UNLABORED ON RA. PAIN ASSESSED AND MEDICATED PER EMAR, WITH GOOD COVERAGE REPORTED. PATIENT IS TOLERATING ABO THERAPY. BILATERAL LEG DRESSINGS INTACT. BED LOW AND LOCKED. CALL LIGHT WITHIN REACH. THIS RN WILL CONTINUE TO MONITOR.
[2022-12-07 05:33] LABS: Hematocrit 25.3 % (37.0-53.0); Hemoglobin 7.9 g/dL (13.5-17.5); Mean Corpuscular HGB 27.2 pg (26.0-34.0); Mean Corpuscular HGB Conc 31.2 g/dL (31.5-36.5); Mean Corpuscular Volume 87 fL (80-100); Mean Platelet Volume 9.2 fL (9.1-12.4); Platelet Count 235 K/mm3 (150-400); RDW Coefficient Variation 20.8 % (11.7-14.2); RDW Standard Deviation 65.7 fL (35.1-46.3)
[2022-12-07 05:58] LABS: Percent Saturation 14.6 % (20.0-50.0)
[2022-12-07 05:59] LABS: Albumin, Blood 2.3 g/dL (3.4-5.0); Albumin/Globulin Ratio 0.6 (0.8-1.8); Bilirubin, Total 0.3 mg/dL (0.1-1.0); Bun/Creatinine Ratio 24.2 (12.0-20.0); Calcium, Blood 8.8 mg/dL (8.5-10.1); Creatinine, Blood 0.83 mg/dL (0.60-1.20); Globulin, Blood 3.7 g/dL (2.2-4.0); Potassium, Blood 3.9 mmol/L (3.5-5.5)
[2022-12-07 07:16] VITALS: BP 111/52
[2022-12-07 14:55] VITALS: BP 120/70
--- NOTE | 2022-12-07 15:17 | NUR ---
WOUND CARE BLE FOUR LAYER COMPRESSION WRAPS CHANGED. PT PREMEDICATED FOR PAIN. PT PAIN LEVEL AT A MORE TOLERABLE LEVEL TODAY. THIS RN DID HAVE TO TAKE SEVERAL BREAKS AND ALLOW FOR BREATHING. BLE WRAPPED IN LIDOCAINE SOAKED GAUZE FOR 20 MIN. SILVER NITRATE TO HYPERGRANULATION TISSUE. HYDROFERA BLUE OUT OF STOCK CALCIUM ALGINATE TO WOUND BEDS THIS CHANGE. BARRIER CREAM TO PERIWOUND. PT TOLERATED WELL
--- NOTE | 2022-12-07 18:01 | NUR ---
SHIFT SUMMARY PATIENT MEDICATED X3 FOR PAIN, X1 FOR WOUND CARE. PATIENT DENIES NAUSEA AND SHORTESS OF BREATH. PATIENT IS IND IN THE ROOM. PATIENT HAS POWERGLIDE TO LEFT UPPER ARM, DOES NOT DRAW. LAYLA FROM WOUND CLINIC CHANGED DRESSING TODAY. MEDICATED FOR PAIN BEFORE DRESSING CHANGE. AROUND 1600 PATIENT YELLING IN ROOM, THIS RN WENT INTO ROOM. PATIENT IN CHAIR AND TEARFUL STATING THE PAIN IS "UNBEARABLE AND HE CANNOT TAKE IT". PATIENT STATED HE MIGHT LEAVE AMA. PATIENT VISIBLY UPSET. DR. GOMEZ NOTIFIED AND NEW ORDERS FOR BETTER PAIN CONTROL. PATIENT APPEARS MORE COMFORTABLE AFTER BEING MEDICATED AND REPORTS LESS PAIN. PATIENT IS EATING AND DRINKING WELL. PATIENT IS PLEASANT AND COOPERATIVE WITH CARE.
[2022-12-07 19:18] VITALS: BP 129/87
[2022-12-08 03:26] VITALS: BP 107/59
--- NOTE | 2022-12-08 05:34 | NUR ---
OIL SCOUT SUMMARY A/OX4. NO ACUTE CHANGES. BLE DRESSING CHANGED TODAY (12/07/22) BY WOUND CARE NURSE; BANDAGES CDI. NEW ORDER FOR WOUND CULTURE--DID NOT COMPLETE; VERIFIED W/ CHARGE NURSE TO WAIT FOR WOUND CARE NURSE TO COLLECT W/NEXT DRESSING CHANGE. PT C/O PAIN IN BLE; MED P/EMAR. ABLE TO MAKE NEEDS KNOWN. CALL LIGHT ACCESSIBLE.
[2022-12-08 07:19] VITALS: BP 117/63
[2022-12-08 14:59] VITALS: BP 127/75
--- NOTE | 2022-12-08 18:16 | NUR ---
PT IS A/OX3, PLEASANT AND COOPERATIVE, DUSKY IN COLOR. THE PT IS UP IND IN HIS ROOM USEING THE FWW. PT HAS C/D/I DRESSINGS APPLIED TO BLE'S. THE PT WAS MEDICATED FOR PAIN X3 TODAY SO FAR THIS SHIFT. THE PT APPEARS TO BE BREATHING EASILY ON RA AT THIS TIME. PTS URINE THIS EVENING HAD A KEATING TINT. CALL IGHT IN REACH. WILL CONTINUE TO MONITOR AND ASSESS FOR CHANGES
[2022-12-08 19:31] VITALS: BP 107/51
[2022-12-09 02:02] VITALS: BP 113/62
--- NOTE | 2022-12-09 05:22 | NUR ---
VENEER PRODUCTION MACHINE OPERATOR SUMMARY NO ACUTE CHANGES. PT ALERT/ORIENTED AND ABLE TO MAKE NEEDS KNOWN. DRESSINGS TO BLE'S APPEAR CDI AT ASSESSMENT; NOTED MALODOR OF WOUNDS. PT CONT T/REPORT 7-06/27 PAIN IN BLE; MED P/EMAR. NO SIGNS OF DISTRESS. CALL LIGHT ACCESSIBLE.
[2022-12-09 08:12] VITALS: BP 115/51
[2022-12-09 14:22] VITALS: BP 132/58
--- NOTE | 2022-12-09 14:26 | NUR ---
WOUND CARE BLE FOUR LAYER COMPRESSION WRAPS CHANGED TODAY. PT PREMEDICATED FOR PAIN. BANDAGED REMOVED, LIDOCAINE SOAKED GAUZE TO BLE FOR 20 MIN. SILVER NITRATE TO HYPERGRANUALATION TISSUE. PT ALLOWED TO SHOWER THEN NS TO DEACTIVATE SILVER NITRATE. HYDROFERA BLUE ON BACK ORDER, CALCIUM ALGINATE TO WOUND BEDS COVERED WITH EXU-DRY THEN FOUR LAYER COMPRESSION. PT PAINFUL AT POINTS, BUT LEVEL WAS TOLERABLE AND PAIN BETTER MANAGED THAN PREVIOUS CHANGES. NEXT CHANGE DUE WEDNESDAY
--- NOTE | 2022-12-09 16:46 | NUR ---
PT I8S A/OX4, PLEASANT AND COOPERATIVE. THE PT IS UP IND IN HIS ROOM TO THE BATHROOM. THE APPEARS TO BE BREATHING EASILY ON RA AT THIS TIME. THE PTS WOUND DRESSINGS WERE CHANGED TODAY. THE PT WAS MEDICATED FOR PAIN BEFORE AND DURING THE DRSG CHANGE. POST CHANGE THE PT WAS STILL IN A SIGNIFICANT AMOUNT OF PAIN THAT IT MADE HIM TEARFULL. A CALLL WAS MADE TO DR. GOMEZ AND AN ADDITIONAL DOSE OF MORPHINE ORDERED AND GIVEN. CALL LIGHT IN REACH, WILL CONTINUE TO MONITOR AND ASSESS FOR CHANGES
[2022-12-09 19:10] VITALS: BP 109/61
[2022-12-10 06:16] VITALS: BP 107/59
--- NOTE | 2022-12-10 06:49 | NUR ---
BARGE LOADER SUMMARY: A&Ox4. PLEASANT AND COOPERATIVE WITH CARE. CALLS APPROPRIATELY AND IS ABLE TO COMMUNICATE NEEDS EFFECTIVELY. PRN TRAMADOL AND PRN MORPHINE ADMINISTERED x1 LAST NIGHT FOR C / O PAIN IN BLEs. POWERGLIDE MATT TKO. NO ACUTE CONCERNS T/O THE NIGHT. WILL REPORT TO ONCOMING RN.
[2022-12-10 07:42] VITALS: BP 129/51
[2022-12-10 07:43] VITALS: BP 124/58
--- NOTE | 2022-12-10 08:15 | NUR ---
pt laying in bed watching tv, a/ox3, cooperative with care, follows commands well, denies pain at this time, lungs are clear t/o, on r/a, resp even and unlabored, no cough noted, hrr, voids via urinal, skin has b/l le wounds, wound care team doing dressing changes, gets up indep in room, power glide to asaf site is clear and patent, hortensia, call light in reach.
[2022-12-10 15:12] VITALS: BP 126/66
--- NOTE | 2022-12-10 18:48 | NUR ---
no acute changes this shift, pt up indep in room, medicated with pain meds twice today, no further needs. call light in reach.
[2022-12-10 19:41] VITALS: BP 111/65
[2022-12-11 02:59] VITALS: BP 102/51
--- NOTE | 2022-12-11 06:04 | NUR ---
PT IS A&O4, UP INDEPENDENT IN ROOM, RA, PRN PAIN MEDICATION GIVEN PER DEC, NO ACUTE OVERNIGHT EVENTS, CONTINUE POC
[2022-12-11 07:14] VITALS: BP 114/57
[2022-12-11 15:23] VITALS: BP 137/65
[2022-12-11 19:15] VITALS: BP 121/77
--- NOTE | 2022-12-11 19:16 | NUR ---
WOUND CARE: SUREKHA QUIROZ CALLED FROM WOUND CLINIC. PER KO ORDERS FOR WOUND CHANGE DAILY. CLEAN WOUND WITH WOUND CLEANSER SPRAY PAT DRY APPLY CALCIUM ALGENATE TO WOUND BED PLACE ABD PADS OVER WOUND AREAS. ROLLED GAUZE, TAPE TO HOLD LITE WRAP JANET BANDAGE TO HOLD WOUND CHANGED TODAY BY THIS RN
--- NOTE | 2022-12-11 19:42 | NUR ---
PT PLEASANT TODAY. DID CHANGE LEG WOUNDS TODAY PER PLUMBING INSTALLER INST. MED PER EMAR. NO NEW CONCERNS NOTED. VERY LITTLE MIMIMAL BLEEDING DURING WOUND CHANGE. BED IN LOW [id number], CALL LITE IN REACH, CALLS APPROP
[2022-12-12 04:20] VITALS: BP 126/61
--- NOTE | 2022-12-12 07:36 | NUR ---
PATIENT ALERT AND ORIENTED, ROOM AIR, NO TELE, REQUESTS PAIN MEDICATION Q4 AND SNACKS
[2022-12-12 07:52] VITALS: BP 119/61
[2022-12-12 14:46] VITALS: BP 132/67
--- NOTE | 2022-12-12 15:51 | NUR ---
SHIFT SUMMARY: NO NEW ACUTE CHANGES IN PATIENT CONDITION THIS SHIFT. PATIENT A&OX4. CALM, PLEASANT, AND COOPERATIVE c CARE. USES CALL LIGHT APPROPRIATELY AND ABLE TO MAKE NEEDS KNOWN. DRESSING CHANGED TO BLE'S TODAY PER WOUND CARE ORDER. VITAL SIGNS REVIEWED. POWERGLIDE TO MATT SALINE LOCKED. USES URINAL IN BED INDEPENDENTLY. AMBULATES TO BATHROOM AND BACK IN BED c SBA. CALL LIGHT IN REACH.
[2022-12-12 19:51] VITALS: BP 120/69
--- NOTE | 2022-12-13 05:49 | NUR ---
PATIENT ALERT AND ORIENTED, METHADONE GIVEN LAST NIGHT, PATIENT SLEPT WELL
[2022-12-13 07:04] VITALS: BP 116/63
[2022-12-13 15:25] VITALS: BP 115/68
--- NOTE | 2022-12-13 15:38 | NUR ---
SHIFT SUMMARY: NO NEW ACUTE CHANGES IN PATIENT CONDITION THIS SHIFT. A&OX4. CALM, PLEASANT AND COOPERATIVE c CARE. USES CALL LIGHT APPROPRIATELY AND ABLE TO MAKE NEEDS KNOWN. RECEIVED SCHEDULED MEDS PER EMAR. PATIENT HAD SHOWER AND LINEN CHNAGED. WOUND DRESSING TO BLE'S WAS CHANGED TODAY, PER WOUND CARE DRESSING CHANGED ORDER. POWERGLIDE TO MATT SALINE LOCKED. VITAL SIGNS REVIEWED. CALL LIGHT IN REACH.
[2022-12-13 19:50] VITALS: BP 116/68
--- NOTE | 2022-12-14 05:41 | NUR ---
NO EVENTS OVERNIGHT. CONTINUE TO MONITOR
[2022-12-14 07:22] VITALS: BP 109/62
--- NOTE | 2022-12-14 08:00 | NUR ---
pt a/ox3, pleasant and cooperative with care, follows commands well, is sitting up on the side of the bed having his leg dressings changed by wound care, nurse, lungs clear on r/a, hrr, no edema, iv is power glide to asaf site is clear and patent, btx4, abd flat soft nontender, voids with out diff, skiin has significant wounds to b/l le, indep in room, hortensia, call light in reach.
--- NOTE | 2022-12-14 11:13 | NUR ---
WOUND CARE BLE WOUNDS- MINIMAL HYPERGRANULATION/BLEEDING NOTED. PAIN AT A TOLERABLE LEVEL LESS MACERATION WITH DAILY CHANGES. PATIENT IS NOW TOLERATING CHANGES. PLAN TO CONTINUE WITH DAILY DRESSING CHANGES THIS WEEK. WOUNDS CLEANSED WITH DERMAL WOUND CLEANSER, RINSED NS, CALCIUM ALGINATE TO WOUND BEDS, COVERED EXU-DRY, ROLLED GAUZE, JANET.
[2022-12-14 16:15] VITALS: BP 120/77
--- NOTE | 2022-12-14 18:14 | NUR ---
pt states he's doing fine, enjoying dinner, no complaint or acute changes this shift. call light in reach.
[2022-12-14 20:43] VITALS: BP 131/75
[2022-12-15 03:53] VITALS: BP 114/63
--- NOTE | 2022-12-15 04:56 | NUR ---
shift summery. pt resting in bed at start of shift, pt watching tv, pt very takative and seemed to be in a good mood. pt denied and needs. call light in reach.
[2022-12-15 07:53] VITALS: BP 108/58
[2022-12-15 15:33] VITALS: BP 125/79
--- NOTE | 2022-12-15 16:45 | NUR ---
WOUND CARE BLE DRESSING CHANGED. NEW PHOTO AND ASSESSMENT IN HARD CHART. WOUND MARGINS CONTINUE TO DECREASE WITH SEVERAL SMALL ULCERS CLOSING. WOUNDS FRIABLE WITH INCREASED HYPERGRANULATION. HYPERGRANULATION TISSUE TREATED WITH SILVER NITRATE THEN NS TO DEACTIVATE. PT EDUCATED ON INCREASED PAIN AND DISCOMFORT LEVEL DAY OF CAUTERIZATION AND WHY SILVER NITRATE IS USED IN WOUND CARE. HE VERBALIZED UNDERSTANDING AND TOLERATED TREATMENT WELL. PT ENCOURAGED TO TAKE TYLENOL ALLOWED TODAY
--- NOTE | 2022-12-15 17:33 | NUR ---
SHIFT SUMMARY PT INDEPENDENT IN ROOM USING A FWW. DRESSINGS WITH BREAKTHROUGH DISCHARGE OF DARK RED BLOOD ON LLE. BRIDGES SUPERVISOR IN TO CHANGE DRESSING-SHOWER TAKEN PRIOR TO REAPPLICATION. MEDICATED WITH 1 TIME DOSE OF TORADOL WITH HELP. NAPPED THIS AFTERNOON.
[2022-12-15 19:20] VITALS: BP 106/54
[2022-12-16 04:21] VITALS: BP 121/70
[2022-12-16 07:05] VITALS: BP 109/64
[2022-12-16 15:16] VITALS: BP 122/74
--- NOTE | 2022-12-16 15:55 | NUR ---
WOUND CARE BLE WOUND DRESSINGS CHANGED. WOUNDS CLEANSED WITH DEMAL WOUND, RINSED NS, CALCIUM ALGINATE TO WOUND BEDS COVERED ABD ROLLED GAUZE JANET. PAIN AT A TOLERABLE LEVEL.
--- NOTE | 2022-12-16 16:06 | NUR ---
SHIFT SUMMARY DRESSING TO BLE'S CHANGED THIS MORNING. INDEPENDENT IN ROOM USING FWW. REPORTS PAIN CONTROLLED WITH METHADONE TODAY. EATING AND DRINKING WELL.
[2022-12-16 19:17] VITALS: BP 107/58
[2022-12-17 02:15] VITALS: BP 94/59
--- NOTE | 2022-12-17 04:47 | NUR ---
SUMAMRY: NO ACUTE EVENTS OVERNIGHT. PATIENT AOX4. VERY PLEASANT WT STAFF, COMPLIANT WITH ALL CARE. BP SLIGHTLY SOFT THIS AM BUT MAP STABLE AND PATIENT IS ASYMPTOMATIC. DRESSING TO LEGS CLEAN DRY AND INTACT.
[2022-12-17 05:46] LABS: Hematocrit 24.8 % (37.0-53.0); Hemoglobin 7.7 g/dL (13.5-17.5); Mean Corpuscular HGB 27.3 pg (26.0-34.0); Mean Corpuscular Volume 88 fL (80-100); Mean Platelet Volume 9.3 fL (9.1-12.4); Platelet Count 216 K/mm3 (150-400); RDW Coefficient Variation 17.1 % (11.7-14.2); RDW Standard Deviation 55.2 fL (35.1-46.3); Red Blood Cell Count 2.82 M/mm3 (4.30-5.90); White Blood Cell Count 3.23 K/mm3 (4.00-11.30)
[2022-12-17 07:15] VITALS: BP 95/52
--- NOTE | 2022-12-17 13:45 | NUR ---
WOUND CARE BLE WOUND CARE DONE PER ORDER. NO SIGNIFICANT CHANGES. WOUNDS CONTINUE TO IMPROVE. PAIN TOLERABLE. WILL CONTINUE WITH DAILY CHANGES THIS WEEK AND RECONSIDER COMPRESSION NEXT WEEK
[2022-12-17 16:25] VITALS: BP 91/52
[2022-12-17 17:34] LABS: Albumin, Blood 2.4 g/dL (3.4-5.0); Anion Gap 2 mmol/L (6-16); Blood Urea Nitrogen 25 mg/dL (8-24); Bun/Creatinine Ratio 26.1 (12.0-20.0); CO2, Blood 28 mmol/L (21-32); Calcium, Blood 8.6 mg/dL (8.5-10.1); Chloride, Blood 107 mmol/L (98-108); Creatinine, Blood 0.96 mg/dL (0.60-1.20); Glomerular Filtration Rate 105 (60-); Glucose, Blood 99 mg/dL (70-99); Phosphorus, Blood 4.4 mg/dL (2.5-4.9); Sodium, Blood 137 mmol/L (136-145)
[2022-12-17 18:14] LABS: Hemoglobin 7.8 g/dL (13.5-17.5)
--- NOTE | 2022-12-17 18:35 | NUR ---
SHIFT SUMMARY INDEPENDENT IN ROOM USING FWW. DRESSINGS CHANGED TODAY BY ASH WORKER. NOTIFIED OF LOW BLOOD PRESSURE. BLOOD WORK DONE AND MD NOTIFIED.
[2022-12-17 19:15] VITALS: BP 105/63
[2022-12-18 02:04] VITALS: BP 94/56
--- NOTE | 2022-12-18 06:43 | NUR ---
Shift Summary PT c/o leg pain once early in the shift. Rcvd scheduled methadone and then 650 mg tylenol once, no complaints after. Pt states legs feel good this AM. Pt slept well t/o the night. Pt hypotensive t/o shift which is unchanged from yesterday, still asymptomatic. AOx4, independent with FWW, pleasant and cooperative.
[2022-12-18 07:10] VITALS: BP 99/57
--- NOTE | 2022-12-18 12:48 | NUR ---
WOUND CARE BLE DRESSING CHANGED PER ORDER. HPERGRANULATION AND EXESSIVE BLEEDING NOTED. PRIMARY RN REPORTS PLAN TO DC BLOOD THINNER. PT EDUCATED ON WALKING AND FOOT PUMPS TO PREVENT DVT. BLE WRAPPED IN LIDOCAINE SOAKED GAUZE FOR 20 MIN. SILVER NITRATE TO HYPERGRANULATION THEN NS TO DEACTIVATE. PT PAINFUL BUT TOLERATED WELL. PRIMARY RN TO CHANGE SAT AND SUN
[2022-12-18 15:06] VITALS: BP 102/57
[2022-12-18 19:23] VITALS: BP 105/54
--- NOTE | 2022-12-18 19:57 | NUR ---
SHIFT SUMMARY- PT ALERT, ORIENTED, INDEPENDENT IN THE ROOM. PT HAD A DRESSING CHANGE PERFORMED BY THE ROOM ATTENDANTS TODAY, INCLUDING THE SILVER NITRATE AND LIDOCAINE GEL. PT HAD A SHOWER AFTER THE SALINE WASH TO DEACTIVATE THE SILVER NITRATE. DRESSING CHANGE FOR THE WEEKEND TO BE PERFORMED BY THE BEDSIDE RN. PT HAS METHADONE AND TYLENOL FOR PAIN, HE DOES HAVE TORADOL AVAILABLE FOR DRESSING CHANGES. BEDSIDE RPEORT COMPLETED WITH NIGHT RN AIDA. PT STATES PAIN IS WELL MANAGED AT 5/10 AT THE TIME OF BEDSIDE REPORT. PT IS IN BED, CALL LIGHT IN REACH, NO S&S OF DISTRESS NOTED AT THE TIME OF REPORT.
--- NOTE | 2022-12-19 04:13 | NUR ---
SHIFT SUMMARY PATIENT HAD NO ACUTE CHANGES OBSERVED. AXOX 4 AND INDEPENDENT IN ROOM. DRESSING TO BLE C/D/I. POWERGLIDE EDILMA ARM INTACT. DENIES CHEST PAIN, SOB, AND N/V. VSS/SFEBRILE. COOPERATIVE WITH CARE. CALL LIGHT IN REACH. BED IN LOWEST POSITION. WILL CONTINUE TO MONITOR UNTIL DAY SHIFT NURSE ASSUMES CARE,
[2022-12-19 04:55] VITALS: BP 99/65
[2022-12-19 07:17] VITALS: BP 111/61
[2022-12-19 09:12] LABS: Hematocrit 25.6 % (37.0-53.0)
[2022-12-19 15:17] VITALS: BP 109/64
--- NOTE | 2022-12-19 15:30 | NUR ---
WOUND CARE- WOUND CARE AND DRESSING CHANGE WAS PERFORMED. BLEEDING GREATLY REDUCED FROM YESTERDAY, DRESSINGS WERE MILDLY SOILED ON THE OUTSIDE AT THE TIME OF DRESSING CHANGE. THERE WAS A LOT OF MOIST DISCHARGE, NO ODOR NOTED. PT TOLLERATED THE WOUND CARE WELL WITH NO EXTREME PAIN, HE WAS PRE MEDICATED WITH IV TORADOL, WICH SEEMED TO HELP GREATLY. DRESSINGS WERE REPLACED PER STARS SPECIALIST ORDERS.
--- NOTE | 2022-12-19 17:31 | NUR ---
SHIFT SUMMARY- PT ALERT, ORIENTED AND INDEPENDENT IN THE ROOM. PT PAIN HAS BEEN MANAGED WELL T/O THE DAY (PER PT). WOUND CARE AND DRESSING CHANGE WAS PERFORMED BY THIS RN PER TELEVISION REPORTER ORDERS. BLEEDING OF THE WOUNDS IS GREATLY REDUCED FROM YESTERDAY. SPOKE TO DR SALDANA THIS MORNING ANF SQ LOVENOX WAS HELD UNTIL H&H RESULTS CAME BACK; THEN IT WAS GIVEN AFTER DR SALDANA OK'D IT. PT PAIN SEEMED WELL MANAGED T/O THE DRESSING CHANGE WITH THE USE OF IV TORADOL. PLAN IS FOR PT TO REMAIN HERE FOR THE DURATION OF IV ABX AT THIS TIME. PT CURRENTLY IN BED WITH THE CALL LIGHT IN REACH NO S&S OF DISTRESS NOTED AT THIS TIME. WILL CTM AND PASS ON TO NIGHT RN IN BEDSIDE REPORT.
[2022-12-19 19:42] VITALS: BP 107/62
[2022-12-20 03:27] VITALS: BP 110/61
--- NOTE | 2022-12-20 04:13 | NUR ---
SHIFT SUMMARY PATIENT HAD NO ACUTE CHANGES. AXOX 4 AND INDEPENDENT IN ROOM. DENIES CHEST PAIN, SOB, AND N/V. SCHEDULE METHADONE 20 MG GIVEN FOR LEG PAIN. POWERGLIDE EDILMA ARM INTACT. WATCHED TV ON/OFF T/O SHIFT. BLE WRAPPED WITH MILD WEEPING AFTER DAY SHIFT DRESSING CHANGE. NO FURTHER WEEPING OBSERVED THIS SHIFT. CALL LIGHT IN REACH. BED IN LOWEST POSITION. WILL CONTINUE TO MONITOR UNTIL DAY SHIFT NURSE ASSUMES CARE.
[2022-12-20 07:29] VITALS: BP 106/57
--- NOTE | 2022-12-20 11:22 | NUR ---
WOUND CARE- PT WOUND DRESSINGS WERE CHANGED PER WOUND CARE ORDERS, ADDITIONAL LAYER OF EXUDRY ADDED THE DRESSINGS WERE SOILED AND LEAKING ONTO THE LINNENS. WOUND CARE NOT AVAILABLE SO ADDITIONAL REINFORCEMENT ADDED TO DRESSINGS WHEN CHANGED TODAY. PT WAS PREMEDICATED WITH IV TORADOL AND HE STATED HIS PAIN WAS WELL MANAGED T/O THE DRESSING CHANGE. WILL CTM.
--- NOTE | 2022-12-20 15:17 | NUR ---
SHIFT SUMMARY- PT PAIN SEEMS TO BE WELL MANAGED AT THIS TIME. DRESSING CHANGED THIS MORNING. PT ALERT ORIENTED AND INDEPENDENT IN THE ROOM. FULL LINNEN CHANGE DONE AFTER DRESSING CHANGE WAS COMPLETED. PT IS CURRENTLY SITTING IN THE RECLINER WITH HIS FEET PROPED ON THE BED, CALL LIGHT IN REACH, NO S&S OF DISTRESS AT THIS TIME WILL CTM AND PASS ON TO NIGHT RN IN BEDSIDE REPORT.
[2022-12-20 15:57] VITALS: BP 106/56
[2022-12-20 20:22] VITALS: BP 111/52
--- NOTE | 2022-12-21 04:15 | NUR ---
SHIFT SUMMARY PATIENT HAD NO ACUTE CHANGES. AXOX 4 AND INDEPENDENT IN ROOM. BLE DRESSING C/D/I. SCHEDULE METHADONE GIVEN FOR BLE PAIN. POWERGLIDE MATT INTACT. SCHEDULE YOLANDA PACKET. WATCHED TV FIRST PART OF SHIFT. DENIES CHEST PAIN, SOB, AND N/V. COOPERATIVE WITH CARE. CALL LIGHT IN REACH. BED IN LOWEST POSITION. WILL CONTINUE TO MONITOR UNTIL DAY SHIFT NURSE ASSUMES CARE.
[2022-12-21 04:42] VITALS: BP 94/57
[2022-12-21 07:17] VITALS: BP 96/58
--- NOTE | 2022-12-21 15:02 | NUR ---
WOUND CARE BLE DRESSINGS CHANGED. NEW PHOTO AND ASSESSMENTS IN HARD CHART. EXCESSIVE BLEEDING NOTED, CALCIUM ALGINATE 100% SATURATED WITH SEROSANGUINEOUS DRAINAGE WITH 50% STRIKETHROUGH ON ABD. PT HAS RECENTLY STARTED BACK ON BLOOD THINNER. PRIMARY RN NOTIFIED WITH PLAN TO DISCUSS WITH MD. PLAN FOR SILVER NITRATE TOMORROW WITH POSSIBLE COMPRESSION WED. PT TOLERATED CHANGE WELL
[2022-12-21 17:04] VITALS: BP 101/55
--- NOTE | 2022-12-21 17:41 | NUR ---
SHIFT SUMMARY: PT A&O X4. NO ACUTE CHANGES WITH PT THIS SHIFT. PT WAITING ON PLACEMENT. WOUND NURSE LAYLA ASSESSED AND CHANGED BLE BANDAGES. SHE WOULD LIKE LOVENOX TO BE D/C IT WAS PRIOR DUE TO THE FACT THAT WOUNDS ARE FRIABLE DURING CHANGES. PG IN MATT FLUSHING AND DRAWING W/O COMPLICATIONS. PT DENIES PAIN AND N/V. CALL LIGHT IN REACH. WILL CONTINUE TO MONITOR.
[2022-12-21 19:15] VITALS: BP 117/64
[2022-12-22 05:27] LABS: BASOPHILS ABSOLUTE AUTO 0.01 K/mm3 (0.00-0.23); BASOPHILS PERCENT AUTO 0 % (0-2); EOSINOPHILS ABSOLUTE AUTO 0.18 K/mm3 (0.00-0.68); EOSINOPHILS PERCENT AUTO 6 % (0-6); Hematocrit 24.9 % (37.0-53.0); Hemoglobin 7.6 g/dL (13.5-17.5); IMMATURE GRAN ABSOLUTE AUTO 0.01 K/mm3 (0.00-0.10); IMMATURE GRAN PERCENT AUTO 0 % (0-1); LYMPHOCYTES ABSOLUTE AUTO 1.23 K/mm3 (0.84-5.20); LYMPHOCYTES PERCENT AUTO 42 % (21-46); MONOCYTES ABSOLUTE AUTO 0.45 K/mm3 (0.16-1.47); MONOCYTES PERCENT AUTO 16 % (4-13); Mean Corpuscular HGB 27.4 pg (26.0-34.0); Mean Corpuscular HGB Conc 30.5 g/dL (31.5-36.5); Mean Corpuscular Volume 90 fL (80-100); Mean Platelet Volume 9.9 fL (9.1-12.4); NEUTROPHILS ABSOLUTE AUTO 1.03 K/mm3 (1.96-9.15); NEUTROPHILS PERCENT AUTO 35 % (41-73); Platelet Count 194 K/mm3 (150-400); RDW Coefficient Variation 17.7 % (11.7-14.2); Red Blood Cell Count 2.77 M/mm3 (4.30-5.90); White Blood Cell Count 2.91 K/mm3 (4.00-11.30)
[2022-12-22 05:29] VITALS: BP 108/53
[2022-12-22 07:16] LABS: Bun/Creatinine Ratio 24.1 (12.0-20.0); Calcium, Blood 8.7 mg/dL (8.5-10.1); Creatinine, Blood 0.99 mg/dL (0.60-1.20); Potassium, Blood 4.4 mmol/L (3.5-5.5)
[2022-12-22 07:18] VITALS: BP 100/47
[2022-12-22 07:21] VITALS: BP 109/48
[2022-12-22 14:49] VITALS: BP 101/55
--- NOTE | 2022-12-22 15:34 | NUR ---
WOUND CARE BLE DRESSING CHANGE TODAY. EXCESSIVE BLEEDING NOTED. TISSUE IS HYPERGRANULATED AND FRIABLE. CALCIUM ALGINATE 100% SATURATED WITH 50% STRIKETHROUGH ON EXU-DRY H&H TRENDING DOWN. PRIMARY RN AWARE AND BLOOD THINNER HELD. PRIMARY RN TO NOTIFY MD. TRIALING SCDS. IF PATIENT TOLERATES THIS WILL ASSIST WITH VENOUS RETURN AND DVT PROPHYLAXIS WHICH IS BENEFICIAL. UNABLE TO SILVER NITRATE TODAY TORADOL IS NO LONGER AVAILBLE. PRIMARY RN TO NOTIFY MD. SILVER NITRATE IS BENEFICIAL IT KEEPS FRIABLE HYPERGRANULATION TISSUE DOWN ALLOWING EPITHELIAL TISSUE TO MIGRATE TOGETHER ALLOWING WOUND CLOSURE. IT ALSO REDUCES THE AMOUNT OF BLOOD LOST FROM WOUNDS. CLARIFIED WITH DR. OLIVAREZ THAT PT HAS EXCELLENT ARTERIAL BLOOD FLOW AND DOES NOT NEED ANGIOPLASTY/ ARTERIAL INTERVENTION. HE DOES HAVE SUPERFICIAL AND DEEP VENOUS REFLUX. VENOUS ABLATION/INTERVENTION WOULD BE BENEFICIAL AND DECREASE HEALING TIME FOR VENOUS ULCERS.
[2022-12-22 19:59] VITALS: BP 112/60
[2022-12-23 02:04] VITALS: BP 103/57
[2022-12-23 07:15] VITALS: BP 116/55
[2022-12-23 15:12] VITALS: BP 104/53
--- NOTE | 2022-12-23 15:40 | NUR ---
WOUND CARE PT TOLERATED SCDS WELL YESTERDAY. HE REPORTS WEARING THEM IN BED AT ALL TIMES HE DENIES INCREASED PAIN. THIS RN NOTED A VISIBLE REDUCTION IN EDEMA BLE WOUND DRESSINGS CHANGED. BLE SOAKED WITH LIDOCAINE GAUZE FOR 15 MIN SILVER NITRITE TO HYPERGRANULATION TISSUE/NS TO DEACTIVATE. WOUNDS DRESSED PER ORDER. PT TOLERATED WELL
--- NOTE | 2022-12-23 17:11 | NUR ---
SHIFT SUMMARY: PT A&O X4. NO ACUTE CHANGES WITH PT THIS SHIFT. PT C/O 9 PAIN IN BLE WOUNDS. PT RECEIVED ONE TIME DOSE OF DILAUDID THIS AM WITH CHANGES. PT STATES DILAUDID DID NOT TOUCH THE PAIN LIKE TORADOL. HELD LOVENOX DUE TO EXCESSIVE BLEEDING W/DRESSING CHANGES. PT TOLERATING SCD WHEN IN LOWER AMOUNT OF PAIN. PT STATES HE DOES NOT SLEEP WELL AT NIGHT. HAD ADDITIONAL DOSE OF MELOTONIN A COUPLE NIGHT AGO AND SAID HE SLEPT VERY WELL. WILL ASK TO INCREASE NIGHTTIME DOSE. CALL LIGHT IN REACH. WILL CONTINUE TO MONITOR.
[2022-12-23 19:26] VITALS: BP 110/62
[2022-12-24 05:05] VITALS: BP 103/56
[2022-12-24 07:14] VITALS: BP 95/56
--- NOTE | 2022-12-24 15:24 | NUR ---
WOUND CARE BLE DRESSINGS CHANGED PER ORDER. PAIN AT A TOLERABLE LEVEL. PT TOLERATING SCDS WELL WITH MARKED DECREASE IN EDEMA. WOUND MARGINS CONTINUE TO DECREASE. PT TOLERATED WELL
--- NOTE | 2022-12-24 18:02 | NUR ---
SHIFT SUMMARY PATIENT DENIES PAIN, NAUSEA, AND SHORTNESS OF BREATH. PATIENT IND IN ROOM. PATIENT HAS POWERGLIDE TO MATT, DRAWS BUT IS POSITIONAL. PATIENT SLEPT ON AND OFF TODAY. PATIENT EATING AND DRINKING WELL. PATIENT IS PLEASANT AND COOPERATIVE WITH CARE.
[2022-12-24 19:41] VITALS: BP 126/57
[2022-12-25 05:07] VITALS: BP 120/63
--- NOTE | 2022-12-25 05:08 | NUR ---
SHIFT NOTE PATIENT IS ALERT AND ORIENTED, CALM AND COOPERATIVE WITH CARE, DID NOT GET MUCH SLEEP THROUGH THE NIGHT. PATIENT IS FOLLOWED BY WOULD CARE, DRESSINGS HAVE SOME DRAINAGE, DRY FLOW CHANGED X1, STATES BLEEDING IS WORSE WHEN UP OUT OF BED. POWER GLIDE DOES NOT DRAW. NO OTHER ISSUES TO REPORT.
[2022-12-25 05:26] LABS: BASOPHILS ABSOLUTE AUTO 0.01 K/mm3 (0.00-0.23); BASOPHILS PERCENT AUTO 0 % (0-2); EOSINOPHILS ABSOLUTE AUTO 0.15 K/mm3 (0.00-0.68); EOSINOPHILS PERCENT AUTO 5 % (0-6); Hematocrit 24.8 % (37.0-53.0); Hemoglobin 7.6 g/dL (13.5-17.5); IMMATURE GRAN ABSOLUTE AUTO 0.01 K/mm3 (0.00-0.10); IMMATURE GRAN PERCENT AUTO 0 % (0-1); LYMPHOCYTES PERCENT AUTO 43 % (21-46); MONOCYTES ABSOLUTE AUTO 0.63 K/mm3 (0.16-1.47); MONOCYTES PERCENT AUTO 21 % (4-13); Mean Corpuscular HGB 27.3 pg (26.0-34.0); Mean Corpuscular HGB Conc 30.6 g/dL (31.5-36.5); Mean Corpuscular Volume 89 fL (80-100); Mean Platelet Volume 9.6 fL (9.1-12.4); NEUTROPHILS ABSOLUTE AUTO 0.91 K/mm3 (1.96-9.15); NEUTROPHILS PERCENT AUTO 30 % (41-73); Platelet Count 177 K/mm3 (150-400); RDW Coefficient Variation 17.1 % (11.7-14.2); RDW Standard Deviation 56.3 fL (35.1-46.3); Red Blood Cell Count 2.78 M/mm3 (4.30-5.90); White Blood Cell Count 3.01 K/mm3 (4.00-11.30)
[2022-12-25 07:57] VITALS: BP 99/56
[2022-12-25 14:59] VITALS: BP 112/71
--- NOTE | 2022-12-25 18:04 | NUR ---
SHIFT SUMMARY: PT A&O X4, PLEASANT, HAPPY, ABLE TO VOICE NEEDS AND COMMUNICTAES WITH STAFF. PT HAD MILD TO MODERATE PAIN, PT RECEVIED SCHEDULED METHADONE AND TYLENOL FOR PAIN MANAGEMENT. PT RECEVIED WOUND CARE AND DRESSING CHANGE, PT HAD MODERATE AMOUNT OF SANGUINEOUS DRAINAGE. PT WOUND CLEANSED WITH NS, APPLIED CALCIUM ALGINATE TO THE WOUND BED, COVERED WITH ABD, WRAPPED IN KERLIX AND JANET WRAPPED. PT ABLE TO AMBULATE TO THE RESTROOM AND CONTINENT OF URINE AND STOOL. PT IN BED MOST OF THE SHIFT WITH FREQUENT WALKING TO THE RESTROOM. PT WAITING ON PLACEMENT TO SNF. PT RESTING IN BED WITH CALL LIGHT WITHIN REACH.
[2022-12-25 19:21] VITALS: BP 111/66
[2022-12-26 04:49] VITALS: BP 136/70
--- NOTE | 2022-12-26 06:06 | NUR ---
PATIENT REMAINES ALERT AND ORIENTED X4, COOPERATIVE WITH CARE. DRESSING CDI, POWER GLIDE TO MATT SL, DOES NOT DRAW, FLUSHED WITH NS. EAR PAIN RADIATING INTO JAW, AND DRAINAGE, REPORTEDT TO MD. NEW ORAL ABT'S ADMINISTERED. NO OTHER ISSUES TO REPORT.
[2022-12-26 07:30] VITALS: BP 87/46
[2022-12-26 15:06] VITALS: BP 108/60
--- NOTE | 2022-12-26 17:19 | NUR ---
SHIFT SUMMARY: DAILY DRESSING CHANGES COMPLETED AFTER PT SHOWERED. C/O PAIN IN BLE AND R EAR; MEDICATED WITH TYLENOL. PT HAD REQUESTED TORADOL, BUT DRUG WAS D/C'D D/T INCREASED BLOOD LOSS FROM WOUNDS AND DR. SALDANA DID NOT WANT TO REORDER. GETTING UP TO BR WITH FWW INDEPENDENTLY. HYPOTENSIVE THIS A.M. 87/46, BUT BP RECOVERED TO 108/60 WITHOUT INTERVENTION; PT ASYMPTOMATIC. USING URINAL. GOOD APPETITE. ABX CHANGED FROM PO OMNICEF TO EAR DROPS FOR R EAR INFXN.
[2022-12-26 19:44] VITALS: BP 113/63
[2022-12-27 03:46] VITALS: BP 95/52
--- NOTE | 2022-12-27 05:28 | NUR ---
BERNARDO SLEPT WELL THROUGH THE NIGHT, EAR PAIN TREATED WITH TYLENOL AND EAR DROPS. SCD'S USED OVER WOUND DRESSINGS WITHOUT ISSUE. SOME CONGESTION NOTED. REMAINS IND IN ROOM AND CALLS TO MAKE NEEDS KNOW. NO OTHER ISSUES TO REPORT.
[2022-12-27 07:13] VITALS: BP 102/56
--- NOTE | 2022-12-27 16:22 | NUR ---
SHIFT SUMMARY: NO ACUTE EVENTS. C/O PAIN IN R EAR AND BLE; MEDICATED PER EMAR WITH ADEQUATE RELIEF. DRESSINGS ON BLE CHANGED WITHOUT INCIDENT, DID NOT SHOWER TODAY. GOOD APPETITE. USING URINAL AND BR INDEPENDENTLY. SPIRITS ARE GOOD.
[2022-12-27 16:35] VITALS: BP 110/55
[2022-12-27 19:13] VITALS: BP 124/53
--- NOTE | 2022-12-28 04:26 | NUR ---
SHIFT SUMMARY 37 YR M ADMITTED ON 11/04/22 FOR CELLULITIS OF BLE. FULL CODE. NO ACUTE CHANGES THIS SHIFT. PT IS PLEASANT AND COOPERATIVE WITH CARE. HE APPEARS TO BE COMFORTABLE AND IN A MINIMAL AMOUNT OF PAIN. POSSIBLE PLAN FOR VASCULAR ABLATION SOMETIME THIS WEEK.
[2022-12-28 05:40] VITALS: BP 99/44
[2022-12-28 07:49] VITALS: BP 98/54
[2022-12-28 15:23] VITALS: BP 101/53
--- NOTE | 2022-12-28 16:54 | NUR ---
NO ACUTE CHANGES AT THIS TIME. AOX4 AND COOPERATIVE OF CARE. PT TOOK SHOWER PRIOR TO DRESSING CHANGES TODAY AND WOUND CARE NURSE APPLIED TREATMENT AND CARE. CALL LIGHT WITHIN REACH WILL CONTINUE TO MONITOR.
[2022-12-28 19:29] VITALS: BP 102/62
[2022-12-29 02:39] VITALS: BP 113/54
--- NOTE | 2022-12-29 04:36 | NUR ---
SHIFT SUMMARY FULL CODE. A&O X4. 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 INDEPENDENT EXCEPT FOR SCDs. DENIES ANY PAIN OR DISCOMFORT TO BLE FROM SCDs. POWERGLIDE TO L UPPER ARM. WOUND CARE NURSE SEES PT. HE IS WAITING FOR PLACEMENT FOR WOUNDS TO HEAL. WILL CONTINUE TO MONITOR AND PROVIDE CARE T/O SHIFT.
[2022-12-29 08:00] VITALS: BP 96/54
--- NOTE | 2022-12-29 16:16 | NUR ---
WOUND CARE BLE DRESSINGS CHANGED PER ORDER. MARKED REDUCTION IN EDEMA WITH SCDS. HYPERGRANUALTION WITH MODERATE BLEEDING NOTED. MINIMAL PAIN WITH CHANGE TODAY. WOUNDS CONTINUE TO CONTRACT
--- NOTE | 2022-12-29 16:29 | NUR ---
NO ACUTE CHANGES PT AOX4 AND COOPERATIVE OF CARE. INDPENDENT IN ROOM AND CAN MAKE NEEDS KNOWN. WOUND CARE NURSE CHANGED BILATERAL LE BANDAGES TODAY. PT TOLERATED WELL. TREATED PAIN PER EMAR. CALL LIGHT WITHIN REACH WILL CONTINUE TO MONITOR.
[2022-12-29 19:32] VITALS: BP 117/66
[2022-12-30 03:00] VITALS: BP 104/56
--- NOTE | 2022-12-30 04:20 | NUR ---
SHIFT SUMMARY PT RESTING QUIETLY IN BED FOR MOST OF SHIFT. INDEPENDENT IN ROOM. USES URINAL APPROPRIATELY. FLUIDS AT BEDSIDE. CALL LIGHT WITHIN REACH. ABLE TO MAKE NEEDS KNOWN. BED IN LOW POSITION. WILL CONTINUE TO MONITOR AND PROVIDE CARE T/O SHIFT.
[2022-12-30 08:01] VITALS: BP 101/56
[2022-12-30 15:43] VITALS: BP 100/55
--- NOTE | 2022-12-30 19:57 | NUR ---
SHIFT SUMMARY- PT IS ALERT AND ORIENTED X4. INDEPENDENT IN THE ROOM, R/A. TREATED PAIN PER EMAR. WOUND CARE COMPLETED AT 1845. TREATED PAIN PER EMAR.
[2022-12-30 19:59] VITALS: BP 106/62
[2022-12-31 04:00] VITALS: BP 102/64
--- NOTE | 2022-12-31 04:29 | NUR ---
LISW SUMMARY VSS. AWAKE AT INTERVALS. UP TO BATHROOM A FEW TIMES, ABLE TO AMBULATE ON BILATERAL FEET WITH DRESSINGS INTACT. NO NOTED S/S DRAINAGE. ALERT AND ORIENTED. CALL LIGHT IN REACH. WILL CONTINUE TO MONITOR
[2022-12-31 07:21] VITALS: BP 101/61
[2022-12-31 08:50] VITALS: BP 98/55
--- NOTE | 2022-12-31 12:37 | NUR ---
NURSE NOTE. THIS RN AGREES WITH PATIENT SERVICES TECHNICIAN STUDENT ASSESSMENT.
[2022-12-31 14:44] VITALS: BP 96/63
--- NOTE | 2022-12-31 15:51 | NUR ---
STUDENT PRACTICAL NURSE SHIFT SUMMARY PATIENT IS AOX4. PLEASENT,ALERT MOST THE DAY. AMBULATES INDEPENDENTLY. PATIENT COMPLAINED OF LEG PAIN. PAIN MEDICATION WAS GIVEN PER EMAR, PAIN REASSESED AND WAS A 3. DENIES NAUSEA. PENDING PLACEMENT. USES CALL LIGHT APPROPRIATELY. BED LOCKED AND IN LOWEST POSTITION. WILL CONTINUE TO MONITOR UNTIL SHIFT CHANGE.
[2022-12-31 19:16] VITALS: BP 105/58
[2023-01-01 02:12] VITALS: BP 104/54
--- NOTE | 2023-01-01 04:02 | NUR ---
FOOD COOKING MACHINE OPERATOR SUMMARY VSS. ALTHOUGH BLE HAS CELLULITIS, ABLE TO GET OOB AND MOVE ABOUT ROOM WITHOUT NOTED DISTRESS. DENIED PAIN WHEN ASKED. HAS BEEN RESTING QUIETLY WITH FEW INTERRPTIONS. CALL LIGHT IN REACH. WILL CONTINUE TO MONITOR
[2023-01-01 07:11] VITALS: BP 100/60
[2023-01-01 15:41] VITALS: BP 117/56
--- NOTE | 2023-01-01 17:25 | NUR ---
Shift Summary A/Ox4, pleasant/cooperative. Independent to bathroom with FWW. Had BM today. Refusing colace, changed to PRN with Dr. Khan's consent. Dressing changed to BLE, noticed blood blisters to R lateral and L medial malleolus. Medicated with scheduled pain meds with good effect. PG dressing changed. No acute concerns.
[2023-01-01 19:37] VITALS: BP 106/66
[2023-01-02 04:16] VITALS: BP 113/59
--- NOTE | 2023-01-02 04:40 | NUR ---
SHIFT SUMMARY ADMITTED FOR BLE CELLULITIS. FULL CODE. AWAITING PLACEMENT. POSSIBLE PLAN FOR VENOUS ABLATION WITH CONSULT DR. MAN. RIGHT EAR INFECTION, EAR DROPS ARE SCHEDULED. INDEPENDENT. A&O X4. ON RA. REGULAR DIET. POWERGLIDE IN LUE. DRESSINGS ON BLE CHANGED ON PREVIOUS SHIFT. WE DID REINFORCE DRESSINGS THIS SHIFT DUE TO SOME BLEEDING THROUGH AT ANKLES WHEN PATIENT AMBULATED TO BATHROOM AND BACK. HX OF IRON DEFICIENT ANEMIA.
[2023-01-02 07:24] VITALS: BP 105/62
[2023-01-02 15:31] VITALS: BP 98/56
--- NOTE | 2023-01-02 18:19 | NUR ---
SHIFT SUMMARY A&O X 4. VSS. IS COOPERATIVE & PLEASANT. DRESSINGS ON BILAT LE'S C/D/I. IS INDEPENDENT IN THE ROOM FOR RESTROOM USE. PLAN IS FOR DR. MAN TO DO VENOUS ABLATION. IS ALSO AWAITING PLACEMENT FOR CONTINUED WOUND CARE. BILAT DRESSINGS CHANGED PER WOUND CARE ORDERS. PT TOLERATED WELL. EAR DROPS FOR R EAR INFECTION GIVEN ORDERED. APPETITE IS GOOD.
[2023-01-02 20:10] VITALS: BP 121/62
[2023-01-03 02:31] VITALS: BP 102/61
[2023-01-03 05:25] LABS: BASOPHILS ABSOLUTE AUTO 0.02 K/mm3 (0.00-0.23); BASOPHILS PERCENT AUTO 1 % (0-2); EOSINOPHILS ABSOLUTE AUTO 0.15 K/mm3 (0.00-0.68); EOSINOPHILS PERCENT AUTO 3 % (0-6); Hematocrit 26.6 % (37.0-53.0); Hemoglobin 8.2 g/dL (13.5-17.5); IMMATURE GRAN ABSOLUTE AUTO 0.02 K/mm3 (0.00-0.10); IMMATURE GRAN PERCENT AUTO 1 % (0-1); LYMPHOCYTES ABSOLUTE AUTO 1.75 K/mm3 (0.84-5.20); LYMPHOCYTES PERCENT AUTO 40 % (21-46); MONOCYTES ABSOLUTE AUTO 0.41 K/mm3 (0.16-1.47); MONOCYTES PERCENT AUTO 9 % (4-13); Mean Corpuscular HGB 26.5 pg (26.0-34.0); Mean Corpuscular HGB Conc 30.8 g/dL (31.5-36.5); Mean Corpuscular Volume 86 fL (80-100); Mean Platelet Volume 9.2 fL (9.1-12.4); NEUTROPHILS ABSOLUTE AUTO 2.04 K/mm3 (1.96-9.15); NEUTROPHILS PERCENT AUTO 46 % (41-73); Platelet Count 243 K/mm3 (150-400); RDW Coefficient Variation 15.1 % (11.7-14.2); RDW Standard Deviation 48.1 fL (35.1-46.3); Red Blood Cell Count 3.09 M/mm3 (4.30-5.90); White Blood Cell Count 4.39 K/mm3 (4.00-11.30)
[2023-01-03 06:01] LABS: Bun/Creatinine Ratio 26.3 (12.0-20.0); Calcium, Blood 8.7 mg/dL (8.5-10.1); Creatinine, Blood 0.95 mg/dL (0.60-1.20)
--- NOTE | 2023-01-03 07:15 | NUR ---
JOB RECRUITER SUMMARY: A&Ox4. PLEASANT AND COOPERATIVE WITH CARE. CALLS APPROPRIATELY AND IS ABLE TO COMMUNICATE NEEDS EFFECTIVELY. ORIENTED TO ABILITIES. NO ACUTE CONCERNS T/O THE NIGHT. LABS DRAWN THIS AM; NO CRITICAL RESULTS RECEIVED. REPORT TO ONCOMING RN.
[2023-01-03 07:28] VITALS: BP 113/51
[2023-01-03 15:23] VITALS: BP 111/60
--- NOTE | 2023-01-03 18:27 | NUR ---
SHIFT SUMMARY A&O X 4. VSS. APPETITE GOOD. PT SHOWERED THIS AFTERNOON. PRIOR TO SHOWER, BILAT LOWER LEG DRESSINGS REMOVED. LIDOCAINE SOAKED GAUZE WRAPS PLACED ON BOTH LEGS TO REDUCE PAIN PRIOR TO PT SHOWERING. WRAPS REMAINED ON FOR 15 MINS. REMOVED WRAPS THEN PT SHOWERED. AFTER SHOWERING, WOUND CARE DONE AND NEW DRESSINGS APPLIED TO BILAT LOWER LEGS PER WOUND CARE ORDERS. PT TOLERATED WELL. PT THEN REQUESTED TO BE MEDICATED WITH TYLENOL PER EMAR WITH GOOD RELIEF STATED BY PT. PG IN L UPPER ARM INTACT & PATENT. PLAN IS FOR PLACEMENT FOR CONTINUED WOUND CARE. PT IS INDEPENDENT IN THE ROOM FOR RESTROOM USE. IS PLEASANT & COOPERATIVE WITH ALL CARE.
[2023-01-03 19:20] VITALS: BP 106/65
--- NOTE | 2023-01-04 05:30 | NUR ---
SHIFT SUMMARY; NO ACUTE CHANGES OVERNIGHT. THE PT IS AXO X4 AND INDEPENDENT IN THE ROOM. THE PT IS ABLE TO MAKE HIS NEEDS KNOWN AND USES THE CALL LIGHT APPROPRIATELY. THE PT REQUESTED PRN PAIN MEDICATION ONCE LAST NIGHT. THE PT DENIES ANY SOB, CHEST PAIN/PRESSURE OR N/V. CURRENTLY THE PT IS RESTING IN BED WITH THE BED IN THE LOWEST POSITION AND THE CALL LIGHT AT BEDSIDE.
[2023-01-04 05:49] VITALS: BP 109/63
[2023-01-04 07:23] VITALS: BP 98/56
--- NOTE | 2023-01-04 12:30 | NUR ---
WOUND CARE BLE DRESSING CHANGED PER ORDER. UNABLE TO OBTAIN NEW PHOTO D/T CAMERA MALFUNCTION. BLE CONTINUE TO MAKE SIGNIFICANT GAINS WITH SEQUENTIAL COMPRESSION. EDEMA RETURN QUICK WITH FEET IN DEPENDENT POSITION. HYPERGRANULATION/BLEEDING MINIMAL AND PAIN WELL CONTROLLED TODAY
[2023-01-04 14:52] VITALS: BP 112/62
--- NOTE | 2023-01-04 17:27 | NUR ---
SHIFT SUMMARY: PT A&O X4. PT HAS BEEN PLEASANT AND COOPERATIVE WITH ALL CARE THIS SHIFT. NO ACUTE CHANGES WITH PT. MANNY RICH IN WOUND CHANGED PT DRESSING THIS AM. PT TOLERATED WELL AND STATES HE IS BLEEDING LESS AND IS DOING BETTER HANDLING PAIN. AWAITING VENOUS ABLATION. PT STATES EAR IS IN NO PAIN. PROVIDED EAR DROPS THIS AM. NO C/O PAIN OR N/V. CALL LIGHT IN REACH. WILL CONTINUE TO MONITOR.
[2023-01-04 19:43] VITALS: BP 100/56
--- NOTE | 2023-01-05 04:48 | NUR ---
SURGICAL TECHNOLOGY INSTRUCTOR SUMMARY PT A/OX4. NO ACUTE CHANGES. ABLE TO MAKE NEEDS KNOWN. PT EXCITED TO REPORT TO THIS NURSE PROGRESS ON WOUNDS; FEELS HE IS GETTING BETTER; SHOWED PICS TAKEN ON HIS PHONE TODAY. BLE DRESSINGS ARE CDI. PT TOLERATING SEQ COMPRESSION ON BLE. CALL LIGHT ACCESSIBLE.
[2023-01-05 08:03] VITALS: BP 109/58
--- NOTE | 2023-01-05 13:43 | NUR ---
WOUND CARE BLE DRESSINGS CHANGED. NEW PHOTOS AND ASSESSMENTS IN HARD CHART. NO SIGNIFICANT CHANGES. TRIALING HYDROFERA BLUE VS CALCIUM ALGINATE. PT TOLERATED WELL.
[2023-01-05 15:27] VITALS: BP 101/60
--- NOTE | 2023-01-05 18:11 | NUR ---
SHIFT SUMMARY: PT A/O X 4, IND IN ROOM, PLEASANT AND COOPERATIVE WITH CARE. PT DENIES ANY CONCERNS TODAY. WOUND CARE COMPLETED THIS MORNING BY WOUND RN. DRESSINGS CDI. PAIN MANAGED TODAY WITH METHADONE. NO ACUTE CHANGES OR CONCERNS.
[2023-01-05 20:14] VITALS: BP 102/63
[2023-01-06 03:34] VITALS: BP 101/59
--- NOTE | 2023-01-06 03:48 | NUR ---
SHIFT SUMMARY NOC PT A/O X 4. PLEASANT AND COOPERATIVE WITH CARE. INDEPENDENT IN ROOM. USES BEDSIDE URINAL. PT HAS DRSSING IN PLACE BLE THAT ARE C/D/I CHANGED YESTERDAY BY RETAIL ANALYST. PT PAIN MANAGED WITH METHADONE/TYLENOL FOR LEGS AND NOVA. PT IS AWAITING CONSULT WITH DR MAN ABOUT VENOUS ABLATION PROCEDURE. PT ALSO AWAITING PLACEMENT IN SNF FOR AFTER PROCEDURE. PT IS CURRENTLY IN BED WATCHING TV WITH BED IN LOWEST POSITION, AND CALL LIGHT WITHIN REACH.
[2023-01-06 07:50] VITALS: BP 121/60
[2023-01-06 15:30] VITALS: BP 126/71
--- NOTE | 2023-01-06 16:47 | NUR ---
WOUND CARE BLE DRESSINGS CHANGED. WOUNDS CONTINUE TO EPITHELIALIZE. SLIVER NITRATE TO HYPERGRANULATION TISSUE. MINIMAL PAIN REPORTED. CONTINUED WITH HYDROFERA BLUE PRIMARY DRESSING TODAY.
[2023-01-06 19:32] VITALS: BP 110/64
--- NOTE | 2023-01-06 19:40 | NUR ---
SHIFT SUMMARY PTN HAD DRESSING CHANGE TODAY BY KO FROM WOUND CLINIC. NO OTHER CHANGES NOTED. CONTINUE TO MONITOR.
--- NOTE | 2023-01-07 03:38 | NUR ---
SHIFT SUMMARY NOC PT A/O X4. PLEASANT AND COOPERATIVE WITH CARE. PT AWAITING SNF PLACEMENT. PT HAS CONSULT NEXT WEDNESDAY WITH DR MAN FOR FOLLOW UP ON VENOUS ABLATION PROCEDURE THAT WILL BE PERFORMED EVENTUALLY. PT HAS DRESSING ON BLE THAT WERE CHANGED BY CURRICULUM FACILITATOR DURING AM AND ARE C/D/I. PT HAS PG IN [facility] THAT DOES NOT DRAW BUT DRESSING WAS CHANGED. NO ACUTE CHANGES TO REPORT. PT IS CURRENTLY RESTING WITH BED IN LOWEST POSITION AND CALL LIGHT WITHIN REACH.
[2023-01-07 04:05] VITALS: BP 103/57
[2023-01-07 07:18] VITALS: BP 113/51
--- NOTE | 2023-01-07 13:05 | NUR ---
WOUND CARE BLE DRESSING CHANGED. WOUNDS CONTINUE TO IMPROVE WITH ELEVATION AND SEQUENTIAL COMPRESSION. MINIMAL HYPERGRANULATION. PAIN TOLERABLE. CONTINUED WITH HYDROFERA BLUE.
[2023-01-07 15:44] VITALS: BP 106/60
--- NOTE | 2023-01-07 18:50 | NUR ---
SHIFT SUMMARY DRESSING CHANGE TO BLE BY KO FROM WOUND CARE. NO CHANGES NOTED THIS SHIFT. CONTINUE TO MONITOR.
[2023-01-07 19:30] VITALS: BP 108/63
[2023-01-08 02:45] VITALS: BP 99/58
--- NOTE | 2023-01-08 04:55 | NUR ---
SHIFT SUMMARY BERNARDO HAS BEEN RESTING IN BED ALL NIGHT, NO ACUTE CHANGES TO CONDITION. BANDAGES C/D/I. UP INDEPENDENTLY. BED IN LOWEST POSITION AND CALL LIGHT IN REACH.
[2023-01-08 07:25] VITALS: BP 115/55
[2023-01-08 15:07] VITALS: BP 100/54
--- NOTE | 2023-01-08 17:31 | NUR ---
Shift Summary BLE dressings changed per karate teacher Brandi's rec. Medicated for pain per EMAR with moderate effect. Eating great. No acute concerns. Awaiting placement.
[2023-01-08 19:54] VITALS: BP 104/52
[2023-01-09 04:24] VITALS: BP 102/53
[2023-01-09 07:52] VITALS: BP 103/58
--- NOTE | 2023-01-09 10:52 | NUR ---
LAST BM 01/01 Noticed last bm was charted on 01/01. Patient reports most recent bm was 01/07. koby Yanez formed.
[2023-01-09 15:40] VITALS: BP 102/58
--- NOTE | 2023-01-09 17:00 | NUR ---
Shift Summary Dressings to BLE changed. No acute concerns or changes.
[2023-01-09 19:38] VITALS: BP 116/67
--- NOTE | 2023-01-09 20:33 | NUR ---
ALERT AND ORINETD X 4. WATCHING TV. BLE DRESSINGS CDI. UP AD ROBERT. CALL LIGHT IN REACH. WILL CONTINUE TO MONITOR
[2023-01-10 04:10] VITALS: BP 103/59
--- NOTE | 2023-01-10 05:13 | NUR ---
SHIFT SUMMARY PATIENT IS ALERT AND ORIENTED. PATIENT HAS HAD NO ACUTE EVENTS THIS SHIFT. VITAL SIGNS REVIEWED. BANDAGES C/D/I. PATIENT HAS RESTED ALL SHIFT. PATIENT HAS NOT COMPLAINED OF PAIN, NAUSEA, SOB OR VOMITTING THIS SHIFT. BED IN LOCKED AND LOWEST POSITION. CALL LIGHT IN PLACE.
[2023-01-10 07:21] VITALS: BP 103/58
[2023-01-10 15:25] VITALS: BP 115/69
--- NOTE | 2023-01-10 17:06 | NUR ---
SHIFT SUMMARY NO ACUTE CHANGES DURING SHIFT. PT ALERT AND ORIENTED, CALLS APPROPRIATELY. PT REMAINS ON RA, INDEPENDENT IN ROOM. WOUNDS TO BLE, DRESSINGS CHANGED PER WOUND CARE ORDERS. NO C/O PAIN AT THIS TIME. WILL CONTINUE TO MONITOR, CALL LIGHT WITHIN REACH.
[2023-01-10 19:51] VITALS: BP 111/71
[2023-01-11 05:25] VITALS: BP 100/59
[2023-01-11 07:53] VITALS: BP 104/57
--- NOTE | 2023-01-11 17:19 | NUR ---
WOUND CARE IS BEING PERFORMED- PT WOUNDS ARE CLEAN AND DRESSINGS REMOVED. THE PT IS CURRENTLY IN THE SHOWER, WILL CLEAN AND REDRESS THE WOUNDS AFTER THE SHOWER.
--- NOTE | 2023-01-11 18:43 | NUR ---
SHIFT SUMMARY- PT ALERT AND ORIENTED, INDEPENDENT IN THE ROOM, VERY PLEASENT AND COOPERATIVE WITH ALL CARE. PAIN SEEMS TO BE WELL MANAGED. PT WOUND CARE WAS COMPLETED THIS EVENING, WOUNDS UNDRESSED AND THE PT TOOK A SHOWER. WOUNDS LOOK TO BE GREATLY IMPROVED. PT REPORTS THE CASH PROCESSING SPECIALIST IS OUT ALL WEEK. PT CURRENTLY SITTING UP IN BED, CALL LIGHT IN REACH, HE DECLINED TO HAVE SCD'S PLACED AT THIS TIME REQUESTING A BREAK FROM THEM. NO CURRENT S&S OF DISTRESS NOTED WILL CTM AND PASS ON TO NIGHT RN IN BEDSIDE REPORT.
[2023-01-11 20:14] VITALS: BP 122/68
--- NOTE | 2023-01-12 04:13 | NUR ---
GEOPHYSICAL OPERATOR SUMMARY NO ACUTE CHANGES THROUGHOUT THE NIGHT. A&OX4. PATIENT EFFECTIVELY COMMUNICATES NEEDS. RR EVEN AND UNLABORED ON RA. VSS. BILATERAL LEG WRAPS ARE C/D/I; CHANGED DAILY BY DAY SHIFT RN. BED LOW AND LOCKED. CALL LIGHT WITHIN REACH. THIS RN WILL CONTINUE TO MONITOR.
[2023-01-12 04:52] VITALS: BP 105/62
[2023-01-12 06:19] LABS: BASOPHILS ABSOLUTE AUTO 0.02 K/mm3 (0.00-0.23); BASOPHILS PERCENT AUTO 1 % (0-2); EOSINOPHILS ABSOLUTE AUTO 0.17 K/mm3 (0.00-0.68); EOSINOPHILS PERCENT AUTO 4 % (0-6); Hematocrit 23.3 % (37.0-53.0); Hemoglobin 7.2 g/dL (13.5-17.5); IMMATURE GRAN ABSOLUTE AUTO 0.01 K/mm3 (0.00-0.10); IMMATURE GRAN PERCENT AUTO 0 % (0-1); LYMPHOCYTES ABSOLUTE AUTO 1.63 K/mm3 (0.84-5.20); LYMPHOCYTES PERCENT AUTO 38 % (21-46); MONOCYTES ABSOLUTE AUTO 0.52 K/mm3 (0.16-1.47); MONOCYTES PERCENT AUTO 12 % (4-13); Mean Corpuscular HGB 25.4 pg (26.0-34.0); Mean Corpuscular HGB Conc 30.9 g/dL (31.5-36.5); Mean Corpuscular Volume 82 fL (80-100); Mean Platelet Volume 9.4 fL (9.1-12.4); NEUTROPHILS PERCENT AUTO 46 % (41-73); Platelet Count 211 K/mm3 (150-400); RDW Coefficient Variation 14.9 % (11.7-14.2); RDW Standard Deviation 45.3 fL (35.1-46.3); Red Blood Cell Count 2.84 M/mm3 (4.30-5.90); White Blood Cell Count 4.35 K/mm3 (4.00-11.30)
[2023-01-12 06:42] LABS: Percent Saturation 3.5 % (20.0-50.0)
[2023-01-12 07:20] VITALS: BP 102/54
[2023-01-12 15:32] VITALS: BP 94/54
--- NOTE | 2023-01-12 18:36 | NUR ---
SHIFT SUMMARY: PT A&O X4. PT HAS BEEN PLEASANT AND COOPERATIVE WITH CARE. POWERGLIDE FLUSHING BUT HAVING A DIFFICULT TIME PUSHING FLUIDS THROUGH. MANAGER BANK AWARE. DRESSING ON BLE WOUNDS CHANGED PER WOUND ORDERS. PT RECEIVED PRN TYLENOL AFTER WOUND CHANGE. PT RECEIVED IFED IRON THIS AFTERNOON W/O COMPLICATIONS. PT CURRENTLY IN BED EATING DINNER. CALL LIGHT IN REACH. BED IN LOWEST POSITON. WILL CONTINUE TO MONITOR.
[2023-01-12 20:24] VITALS: BP 112/57
[2023-01-13 02:33] VITALS: BP 135/69
--- NOTE | 2023-01-13 04:50 | NUR ---
SHIFT SUMMARY 37 YR M ADMITTED ON 11/04/22 FOR SHANIA LE CELLULITIS. FULL CODE. NO ACUTE CHANGES THIS SHIFT. PT IS VERY PLEASANT AND COOPERATIVE WITH CARE. NO C/O PAIN OR DISCOMFORT THIS SHIFT. HE APPEARS TO HAVE RESTED COMFORTABLY FOR MOST OF THIS SHIFT. HE IS INDEPENDANT IN THE ROOM AND CALLS APPROPRIATELY FOR ASSISTANCE.
[2023-01-13 07:36] VITALS: BP 96/57
[2023-01-13 15:16] VITALS: BP 117/63
--- NOTE | 2023-01-13 17:32 | NUR ---
SPN SHIFT SUMMARY 37 YO MALE, CARE MANAGEMENT TO TAKE Pt TO DOCTOR APPOINTMENT TOMORROW MORIMARIIA AT 0715. GAVE OK FOR Pt TO BE GIEN METHADONE AT 0700 PRIOR TO APPOINTMENT TO HELP MANAGE Pt PAIN. Pt LLE BANDAGES CHANGED TODAY. Pt HAS USED BEDSIDE URINAL ALL DAY. CALL LIGHT IS IN REACH, WILL CONTINUE TO MONITORE AND PROVIDE CARE.
[2023-01-13 19:13] VITALS: BP 100/54
[2023-01-14 02:56] VITALS: BP 103/55
--- NOTE | 2023-01-14 05:37 | NUR ---
SHIFT SUMMARY 37 YR M ADMITTED ON 11/04/22 FOR BLE CELLULITIS. FULL CODE. NO ACUTE CHANGES THIS SHIFT. PLAN IS FOR OUTSIDE APPT THIS A.M. METHADONE WILL BE GIVEN EARLY AT 0700 TO HELP W/ PAIN CONTROL DURING APPT.
[2023-01-14 07:08] VITALS: BP 122/76
--- NOTE | 2023-01-14 16:34 | NUR ---
SHIFT SUMMARY PATIENT IS ALERT AND ORIENTED. PATIENT HAS NOT HAD ANY ACUTE EVENTS THIS SHIFT. VITAL SIGNS REVIEWED. PATIENT HAD ABLASION DONE THIS MORNING. PATIENT HAD SUCCESSFUL PROCEDURE. PATIENT HAS NOT COMPLAINED OF PAIN, NAUSEA, SOB OR VOMITTING THIS SHIFT. BED IN LOCKED AND LOWEST POSITION. CALL LIGHT IN PLACE. WILL MONITOR UNTIL SHIFT CHANGE.
[2023-01-14 16:35] VITALS: BP 107/60
[2023-01-14 19:25] VITALS: BP 106/62
[2023-01-15 02:35] VITALS: BP 113/71
--- NOTE | 2023-01-15 05:28 | NUR ---
SHIFT SUMMARY 37 YR M ADMITTED ON 11/04/22 FOR BLE CELLULITIS. FULL CODE. NO ACUTE CHANGES THIS SHIFT. PT HAD ABLATION ON RIGHT LEG YESTERDAY AND HE TOLERATED IT WELL. DRESSING ON BLE WERE CHANGED THIS SHIFT WITH MINIMAL PAIN TO PT. HE WAS VERY HELPFUL IN GUIDING THOUGH THE DRESSING CHANGE PROCESS.
[2023-01-15 08:02] VITALS: BP 103/58
[2023-01-15 15:00] VITALS: BP 97/58
--- NOTE | 2023-01-15 18:26 | NUR ---
SHIFT SUMMARY- PT ALERT ORIENTED AND INDEPEDENT IN THE ROOM. WOUND CARE WAS PERFORMED LAST NIGHT AT 9PM. SO WAS PUSHED TO LATER IN THE SHIFT TODAY, DRESSING CHANGE AND SHOWER COMPLETED PRIOR TO DINNER. PT HAS HAD NO ACUTE CHANGE T/O THE SHIFT, PAIN SEEMS TO BE WELL MANAGED ON THE CURRENT REGIMENT. PT IN BED, CALL LIGHT IN REACH, NO S&S OF DISTRESS, EATING DINNER AT THIS TIME. WILL CTM AND PASS ON TO NIGHT RN IN BEDSIDE REPORT.
[2023-01-15 19:29] VITALS: BP 112/72
[2023-01-16 02:18] VITALS: BP 113/56
--- NOTE | 2023-01-16 05:35 | NUR ---
PT IS A&O4, INDEPENDENT IN THE ROOM, VSS, DRESSINGS TO LEGS CDI, PRN PAIN MEDICATION GIVEN PER MAR FOR MILD PAIN, NO ACUTE OVERNIGHT EVENTS CONTINUE POC
[2023-01-16 07:02] VITALS: BP 109/60
[2023-01-16 15:14] VITALS: BP 100/54
--- NOTE | 2023-01-16 17:22 | NUR ---
SHIFT SUMMARY NO ACUTE CHANGES DURING SHIFT. PT ALERT AND ORIENTED,CALLS APPROPRIATELY. NO C/O PAIN, ON RA, INDEPENDENT IN ROOM. DRESSING CHANGED PER ORDERS, CDI. WILL CONTINUE TO MONITOR. CALL LIGHT WITHIN REACH.
[2023-01-16 19:27] VITALS: BP 107/58
[2023-01-17 02:06] VITALS: BP 102/56
--- NOTE | 2023-01-17 06:22 | NUR ---
SHIFT SUMMARY PT IS A&O4, INDEPENDENT IN THE ROOM, RA, DRESSING ON LOWER EXT CDI, NO COMPLAINTS OF PAIN OR DISCOMFORT THIS SHIFT, VSS, CONTINUE POC
[2023-01-17 07:54] VITALS: BP 99/52
[2023-01-17 15:36] VITALS: BP 109/62
--- NOTE | 2023-01-17 17:29 | NUR ---
SHIFT SUMMARY NO ACUTE CHANGES DURING SHIFT. PT ALERT AND ORIENTED,CALLS APPROPRIATELY. NO C/O PAIN, ON RA, INDEPENDENT IN ROOM. DRESSING CHANGED THIS AFTERNOON PER ORDERS. WILL CONTINUE TO MONITOR. CALL LIGHT WITHIN REACH.
[2023-01-17 19:10] VITALS: BP 110/59
--- NOTE | 2023-01-18 04:58 | NUR ---
PATIENT IS ALERT AND ORIENTED X4, COOPERATIVE WITH CARE, CALLS TO MAKE NEEDS KNOWN. UP IND TO BATHROOM, USES FWW AT TIMES. BLE BANDAGES REMAINED CDI, AND WOUND CARE NURSE WILL BE VISITING TODAY. VSS. NO CHANGES TO REPORT.
[2023-01-18 06:13] VITALS: BP 115/64
[2023-01-18 07:15] VITALS: BP 111/53
[2023-01-18 14:41] VITALS: BP 106/62
--- NOTE | 2023-01-18 15:07 | NUR ---
WOUND CARE BLE DRESSINGS CHANGED. ALL WOUNDS CONTINUE TO SHOW IMPROVEMENT. SPOKE TO DR. GALINDO RECIEVED A TELEPHONE ORDER FOR DANALESSIO'S. PLAN FOR 10 MIN DAKINS SOAK AT DRESSING CHANGE Q10 DAYS. LEFT MESSAGE WITH DR. ACEVEDO OFFICE REGARDING NEW VENOUS REFLUX STUDY FOR LLE. WILL ORDER WHEN CONFIRMED. PRIMARY DRESSING CHANGED TO HYDROFERA BLUE FOR HYPERGRANULATION AND ANTIMICRIOBIAL ACTION. PLAN TO TRIAL COMPRESSION ON WED
--- NOTE | 2023-01-18 18:32 | NUR ---
PT IS A/OX3, PLEASANT AND COOPERATIVE. THE PT IS UP IND IN HIS ROOM. PT HAD A SHOWER TODAY DURING WOUND CARE DRESSING CHANGE BY THE PAINT SPRAY INSPECTOR. PT WAS MEDICATED FOR BREAKTHROUGH PAIN X1 TODAY WITH TYLENOL. PT APPEARS TO BE BREATHING EASILY ON RA AT THIS TIME. CALL LIGHT IN REACH. WILL CONTINUE TO MONITOR AND ASSESS MFOR CHANGES
[2023-01-18 19:53] VITALS: BP 104/58
[2023-01-19 03:57] VITALS: BP 96/59
--- NOTE | 2023-01-19 05:35 | NUR ---
NO ACUTE CHANGES TO REPORT. DRESSING CDI. PAIN TREATED PER MAR. WILL CONT TO MONITOR.
[2023-01-19 07:13] VITALS: BP 113/61
[2023-01-19 15:02] VITALS: BP 109/74
--- NOTE | 2023-01-19 16:03 | NUR ---
PT IS A/OX4, P[LEASANT AND COOPERATIVE. PT IS UP IND IN HIS ROOM. PTS DRESSING CHANGED BY PARAMEDIC INSTRUCTOR TODAY. PT WAS MEDICATED WITH TYLENOL X1 SO FAR THIS SHIFT FOR BREAKTHROUGH PAIN. PT APPEARS TO BE BREATHING EASILY ON RA AT THIS TIME, CALL LIGHT IN REACH. WILL CONTINUE TO MONITOR AND ASSES FOR CHANGES
[2023-01-19 19:17] VITALS: BP 117/56
--- NOTE | 2023-01-20 05:09 | NUR ---
PATIENT IS ALERT AND ORIENTED X4, IND IN ROOM, COOPERATIVE WITH CARE. BLE DRESSING CDI. PAIN TREATED PER MAR. NO OTHER ISSUES TO REPORT.
[2023-01-20 07:25] VITALS: BP 92/53
[2023-01-20 15:21] VITALS: BP 117/62
--- NOTE | 2023-01-20 16:07 | NUR ---
WOUND CARE BLE DRESSINGS CHANGED. NEW PHOTOS AND ASSESSMENT IN HARD CHART. WOUNDS SOAKED WITH DAKINS GAUZE. A&D OINTMENT TO PERIWOUNDS. HYDROFERA BLUE TO WOUND BEDS COVERED WITH EXU-DRY, ROLLED GAUZE, JANET. THREE LAYER COMPRESSION HELD D/T SCDS. DRESSING FREQUENCY CHANGED TO THREE TIMES A WEEK PRN SOILED OR DISLODGED.
--- NOTE | 2023-01-20 16:32 | NUR ---
PT IS A/OX4, PLEASANT AND COOPERATIVE. PT IS UP IND IN HIS ROOM. AREA REPRESENTATIVE CHANGED THE PTS LEG DRESSINGS TODAY. PT APPPEARS TO BE BREATHING EASILY ON RA AT THIS TIME. CALL LIGHT IN REACH. WILL CONTINUE TO MONITOR AND ASSESS FOR CHANGES
[2023-01-20 20:34] VITALS: BP 118/68
[2023-01-21 04:28] VITALS: BP 109/60
[2023-01-21 05:49] LABS: Hematocrit 26.4 % (37.0-53.0); Hemoglobin 8.1 g/dL (13.5-17.5); Mean Corpuscular HGB 26.7 pg (26.0-34.0); Mean Corpuscular HGB Conc 30.7 g/dL (31.5-36.5); Mean Corpuscular Volume 87 fL (80-100); Mean Platelet Volume 10.5 fL (9.1-12.4); Platelet Count 209 K/mm3 (150-400); RDW Coefficient Variation 19.6 % (11.7-14.2); RDW Standard Deviation 62.4 fL (35.1-46.3); Red Blood Cell Count 3.03 M/mm3 (4.30-5.90)
--- NOTE | 2023-01-21 05:54 | NUR ---
SHIFT SUMMARY PT IS A&O4, INDEPENDENT IN THE ROOM, RA, DRESSINGS TO BI-LOWER EXT'S CDI, NO ACUTE OVERNIGHT EVENTS, CONTINUE POC
[2023-01-21 06:25] LABS: Albumin, Blood 2.9 g/dL (3.4-5.0); Anion Gap 4 mmol/L (6-16); Blood Urea Nitrogen 25 mg/dL (8-24); Bun/Creatinine Ratio 26.6 (12.0-20.0); CO2, Blood 27 mmol/L (21-32); Calcium, Blood 8.6 mg/dL (8.5-10.1); Chloride, Blood 107 mmol/L (98-108); Creatinine, Blood 0.94 mg/dL (0.60-1.20); Glomerular Filtration Rate 108 (60-); Glucose, Blood 99 mg/dL (70-99); Phosphorus, Blood 4.3 mg/dL (2.5-4.9); Sodium, Blood 138 mmol/L (136-145)
[2023-01-21 07:19] VITALS: BP 91/49
[2023-01-21 16:02] VITALS: BP 106/57
--- NOTE | 2023-01-21 18:20 | NUR ---
SUMMARY- PT A/O X4, INDEPENDANT IN ROOM. TOLERATING FOOD AND FLUID. STATES HE IS HAVING REGULAR BM'S ALTHOUGH NONE DOCUMENTED. PT STATES PAIN IN LEGS CONTROLLED WITH SCHEDULED LONG ACTING NARC. R LEG DRESSING CDI, LLE DRESSING WEAPING THROUGH. SCD'S IN USE. PT STATES GOOD SENSATION BILAT LE AND ABLE TO PALPATE A STRONG PEDAL PULSE. PLAN FOR ABLATION WITH [facility] NEXT WEEK- WILL REPORT TO AIDEN BRYANT.
[2023-01-21 19:45] VITALS: BP 117/65
[2023-01-22 04:13] VITALS: BP 104/59
--- NOTE | 2023-01-22 05:47 | NUR ---
SHIFT SUMMERY. PT ALERT AND ORIENTED, PT REPORTS WOUND CARE NURSE TO COME TODAY TO CHANGE DRG. PTS LEG WEAPING BED PAD CHANGED AND DRG REINFORCED ON LEG. CALL LIGHT IN REACH.
[2023-01-22 07:24] VITALS: BP 109/61
--- NOTE | 2023-01-22 13:38 | NUR ---
WOUND CARE BLE WOUND DRESSINGS CHANGED. DRESSINGS SATURATED LEFT MORE THAN RIGHT. PLANS IN MOTION FOR LLE VENOUS ABLATION. BLE WRAPPED WITH LIDOCAINE SOAKED GAUZE FOR 20 MIN. SILVER NITRATE TO HYPERGRANULATION TISSUE. NS TO DEACTIVATE. PLAN FOR DAILY DRESSING CHANGES THIS WEEKEND TO PREVENT PERIWOUND MACERATION
--- NOTE | 2023-01-22 13:51 | NUR ---
SHIFT SUMMARY NO ACUTE CHANGES TO PRESENT. PT IS PLEASANT AND CO-OP WITH CARE. DR TORRES IN TO SEE PT AND DISCUSS PLAN OF CARE. HAUL DRIVER TO THIS AM TO CHANGE DRSG'S AND TREAT WOUNDS. PT UP TO SHOWER AFTER TREATMENT AND BEFORE NEW DRSG'S PLACED. TYLENOL GIVEN FOR C/O PAIN WHEN WOUND CARE COMPLETE. PT REPORTED MEDICATION EFFECTIVE. NO NEW ORDERS. NO C/O. INDEPENDENT IN AND TO BTM. CALL LT IN REACH.
[2023-01-22 15:27] VITALS: BP 108/65
[2023-01-22 19:33] VITALS: BP 118/61
--- NOTE | 2023-01-23 02:41 | NUR ---
SHIFT SUMMERY, PT SEEMS IN A GOOD MOOD RESTING IN BED AND WATCHING TV, NO DRAINAGE FROM LEG WOUNDS TONIGHT. PT REQUESTED SOME SNACKS AND FOOD WAS BROUGHT TO HIM. CALL LIGHT IN REACH .
[2023-01-23 04:03] VITALS: BP 100/52
[2023-01-23 07:55] VITALS: BP 104/61
--- NOTE | 2023-01-23 10:46 | NUR ---
AM RN NOTE MR MEJIA HAS 3/10 BILATERAL LEG PAIN AFTER METHODONE THIS AM. WOUND DRESSING CHANGES DONE AFTER METHADONE. OPEN WOUNDS WITH MINIMAL BLEEDING AND MODERATE EXUDATE. PT TOLERATED DRESSING CHANGE WELL.
[2023-01-23 14:42] VITALS: BP 111/71
--- NOTE | 2023-01-23 16:07 | NUR ---
SHIFT SUMMARY MR MEJIA HAS HAD NO ACUTE CHANGES TODAY. LEG DRESSINGS CHANGED THIS AM AFTER METHADONE HAD HELPED TO CONTROL PAIN. ELEVATING LEGS IN BED FOR MOST OF THE DAY. NO OTHER C/O PAIN TODAY. BED LOW, CALL LIGHT IN REACH.
[2023-01-23 19:17] VITALS: BP 106/57
[2023-01-24 04:01] VITALS: BP 101/61
--- NOTE | 2023-01-24 05:03 | NUR ---
SHIFT SUMMERY. PT REATING IN BED , WATCHING TV. PT GIVEN HS MEDS AND A SNACK. PT DENIED ANY OTHER NEEDS AND APPEARED TO SLEEP FAIRLY WELL . CALL LIGHT IN REACH.
[2023-01-24 07:31] VITALS: BP 91/56
[2023-01-24 15:01] VITALS: BP 104/56
--- NOTE | 2023-01-24 17:15 | NUR ---
SHIFT SUMMARY MR MEJIA HAS HAD NO ACUTE CHANGES TODAY. PAIN MANAGED ON TYLENOL AND METHADONE. BILATERAL LEG DRESSING CHANGES DONE PER 01/22 AMMONIA NITRATE OPERATOR NOTE. MR MEJIA IS MOSTLY RESTING WITH FEET ELEVATED, BUT IS STEADY WALKING IN TO THE BATHROOM. AMBULATION DOES INCREASE LEG PAIN. BED LOW, CALL LIGHT IN REACH.
[2023-01-24 19:59] VITALS: BP 99/58
[2023-01-25 03:35] VITALS: BP 93/50
[2023-01-25 05:23] LABS: Hematocrit 25.9 % (37.0-53.0); Hemoglobin 7.9 g/dL (13.5-17.5); Mean Corpuscular HGB 26.3 pg (26.0-34.0); Mean Corpuscular HGB Conc 30.5 g/dL (31.5-36.5); Mean Corpuscular Volume 86 fL (80-100); Mean Platelet Volume 10.5 fL (9.1-12.4); Platelet Count 193 K/mm3 (150-400); RDW Coefficient Variation 17.8 % (11.7-14.2); RDW Standard Deviation 56.7 fL (35.1-46.3); White Blood Cell Count 3.59 K/mm3 (4.00-11.30)
[2023-01-25 06:06] LABS: Bun/Creatinine Ratio 25.1 (12.0-20.0); Calcium, Blood 8.7 mg/dL (8.5-10.1); Creatinine, Blood 0.92 mg/dL (0.60-1.20); Potassium, Blood 3.7 mmol/L (3.5-5.5)
--- NOTE | 2023-01-25 06:09 | NUR ---
SUMMARY: PT A/OX4, IS PLEASANT AND COOPERATIVE W/CARE AND INDEPENDENT IN ROOM W/FWW. DX'S TO BLE'S ARE C/D/I W/WOUND CARE CONSULT REEVALUATION PLANNED FOR TODAY. HE RECIEVED SCHEDULED METHADONE FOR TOLERABLE RELIEF OF LEG PAIN AND NO PRN MEDS WERE REQUIRED. NO ACUTE CHANGE, VSS/AFEBRILE. WCTM/REPORT TO DAY RN.
[2023-01-25 07:25] VITALS: BP 91/45
[2023-01-25 15:35] VITALS: BP 113/70
--- NOTE | 2023-01-25 17:59 | NUR ---
SHIFT SUMMARY PATIENT IS ALERT AND ORIENTED. PATIENT HAS HAD NO ACUTE EVENTS THIS SHIFT. VITAL SIGNS REVIEWED. PATIENT HAD WOUND CARE DONE BY THIS RN THIS SHIFT. VITAL SIGNS REVIEWED. PATIENT HAD A SHOWER TODAY. PATIENT HAS NO COMPLAINTS OF PAIN, NAUSEA, SOB OR VOMITTING THIS SHIFT. BED IN LOCKED AND LOWEST POSITION. CALL LIGHT IN PLACE. WILL MONITOR UNTIL SHIFT CHANGE.
[2023-01-25 19:17] VITALS: BP 98/79
[2023-01-26 04:09] VITALS: BP 94/49
--- NOTE | 2023-01-26 06:34 | NUR ---
SHIFT SUMMARY A/OX4, IND IN ROOM. DENIES CHEST PAIN/PRESSURE. SPO2 >92% ON RA. VSS, NO ACUTE CHANGES AT THIS TIME. BED IN LOWEST POSITION WITH CALL LIGHT IN REACH. WILL CONTINUE TO MONITOR AND REPORT TO ONCOMING RN.
[2023-01-26 07:35] VITALS: BP 110/64
[2023-01-26 15:07] VITALS: BP 121/73
--- NOTE | 2023-01-26 16:31 | NUR ---
WOUND CARE BLE DRESSINGS CHANGED PER ORDER. WOUNDS CONTINUE TO IMPROVE WITH CURRENT TREATMENT. 10 MIN DAKINS SOAK TODAY. PT TOLERATED WELL
--- NOTE | 2023-01-26 17:51 | NUR ---
SHIFT SUMMARY PATIENT INDEPENDENT IN ROOM, RESTED IN BED AND UP OCCASSIONALLY FOR SHORT PERIODS OF TIMES. VITAL SIGNS REVIEWED. PATIENT DENIES CHEST PAIN OR PRESSURE. WOUND DRESSINGS TO BLE CHANGED 01/26/2023 WITH WOUND CARE, PHOTO DOCUMENTATION UPDATED SEE CHART. PT. BED IN LOWEST POSITION WITH CALL LIGHT IN REACH. PT DENIES ANY NEEDS AT THIS TIME.
[2023-01-26 19:10] VITALS: BP 103/58
[2023-01-27 03:45] VITALS: BP 88/54
--- NOTE | 2023-01-27 05:42 | NUR ---
PT WITH MINIMAL NEEDS THIS SHIFT, NO CHANGES
[2023-01-27 07:27] VITALS: BP 98/53
[2023-01-27 15:09] VITALS: BP 100/52
--- NOTE | 2023-01-27 15:51 | NUR ---
SHIFT SUMMARY NO ACUTE CHANGES TODAY. WOUND CARE DONE BY LAYLA GROCERY CHECKER. NO PROBLEMS OR CONCERNS VOICED ON HOURLY ROUNDING. BED LOW, CALL LIGHT IN REACH.
--- NOTE | 2023-01-27 16:27 | NUR ---
WOUND CARE BLE DRESSINGS CHANGED. WOUNDS CONTINUE TO IMPROVE. TRIALING XEROFORM ON LLE. CONTINUE CALCIUM ALGINATE ON RLE. RLE ABLATION WITH DR. MAN TOMORROW [id number]
[2023-01-27 19:38] VITALS: BP 106/62
[2023-01-28 05:16] VITALS: BP 103/62
--- NOTE | 2023-01-28 05:30 | NUR ---
SHIFT SUMMARY 37 YR M ADMITTED ON 11/04/22 FOR BLE CELLULITIS. FULL CODE. NO ACUTE CHANGES THIS SHIFT. PLAN IS FOR VENOUS ABLATION ON LLE TODAY. PT IS PLEASANT AND COOPERATIVE WITH CARE AND USES CALL LIGHT APPROPRIATELY. NO C/O THIS SHIFT.
[2023-01-28 06:34] LABS: BASOPHILS ABSOLUTE AUTO 0.02 K/mm3 (0.00-0.23); BASOPHILS PERCENT AUTO 1 % (0-2); EOSINOPHILS ABSOLUTE AUTO 0.14 K/mm3 (0.00-0.68); EOSINOPHILS PERCENT AUTO 3 % (0-6); Hematocrit 27.2 % (37.0-53.0); Hemoglobin 8.3 g/dL (13.5-17.5); IMMATURE GRAN ABSOLUTE AUTO 0.01 K/mm3 (0.00-0.10); IMMATURE GRAN PERCENT AUTO 0 % (0-1); LYMPHOCYTES ABSOLUTE AUTO 1.58 K/mm3 (0.84-5.20); LYMPHOCYTES PERCENT AUTO 39 % (21-46); MONOCYTES ABSOLUTE AUTO 0.58 K/mm3 (0.16-1.47); MONOCYTES PERCENT AUTO 14 % (4-13); Mean Corpuscular HGB 25.6 pg (26.0-34.0); Mean Corpuscular HGB Conc 30.5 g/dL (31.5-36.5); Mean Corpuscular Volume 84 fL (80-100); Mean Platelet Volume 9.9 fL (9.1-12.4); NEUTROPHILS ABSOLUTE AUTO 1.73 K/mm3 (1.96-9.15); NEUTROPHILS PERCENT AUTO 43 % (41-73); Platelet Count 230 K/mm3 (150-400); RDW Coefficient Variation 17.2 % (11.7-14.2); RDW Standard Deviation 52.9 fL (35.1-46.3); Red Blood Cell Count 3.24 M/mm3 (4.30-5.90); White Blood Cell Count 4.06 K/mm3 (4.00-11.30)
[2023-01-28 06:57] LABS: Bun/Creatinine Ratio 29.4 (12.0-20.0); Calcium, Blood 8.8 mg/dL (8.5-10.1); Creatinine, Blood 0.92 mg/dL (0.60-1.20); Potassium, Blood 3.9 mmol/L (3.5-5.5)
[2023-01-28 07:27] VITALS: BP 123/66
--- NOTE | 2023-01-28 07:35 | NUR ---
PATIENT TO [facility] FOR VENOUS ABLATION VIA W/C
[2023-01-28 14:43] VITALS: BP 117/68
--- NOTE | 2023-01-28 18:14 | NUR ---
SHIFT SUMMARY NO ACUTE CHANGES THIS SHIFT, PATIENT HAD VENOUS ABLATION OF LLE THIS AM, WENT WELL. PATIENT HAS NOT C/O PAIN T/O SHIFT. EATING, DRINKING, & VOIDING W/O DIFFICULTY. USES CALL LIGHT APPROPRIATELY, IN REACH. WILL REPORT TO ONCOMING RN AT 1900.
[2023-01-28 19:25] VITALS: BP 112/55
--- NOTE | 2023-01-29 03:33 | NUR ---
SHIFT SUMMARY 37 YR M ADMITTED ON 11/04/22 FOR BLE CELLULITIS. FULL CODE. NO ACUTE CHANGES THIS SHIFT. PT TOLERATED PROCEDURE WELL YESTERDAY AND IS RESTING COMFORTABLY. HE EXPRESSED CONCERN TO THIS NURSE OVER HIS LIVING ARRANGEMENTS ONCE HE GETS OUT OF THE HOSPITAL. HE IS CONCERNED THAT HE WONT FIND PLACEMENT AND THAT HE WILL END UP BACK ON THE STREET. 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 HE EXPRESSES A SERIOUS DESIRE TO STAY CLEAN AND CHANGE HIS LIFE FOR THE BETTER.
[2023-01-29 04:22] VITALS: BP 117/62
[2023-01-29 07:49] VITALS: BP 97/42
--- NOTE | 2023-01-29 15:07 | NUR ---
SHIFT SUMMARY: NO ACUTE CHANGES IN PATIENT CONDITION THIS SHIFT. PATIENT A&OX4. CALM, PLEASANT AND COOPERATIVE c CARE. USES CALL LIGHT APPROPRIATELY AND ABLE TO MAKE NEEDS KNOWN. LAYLA RN FROM WOUND CLINIC DID DRESSING CHANGED TO BLE'S TODAY. PATIENT DENIES PAIN AND TOLERATED WELL THE ENTIRE PROCESS. SCD'S TO BLE IN PLACE. PATIENT USES URINAL IN BED INDEPENDENTLY. GREAT APPETITE. RECEIVED SCHEDULED MEDS PER EMAR. VITAL SIGNS REVIEWED. CALL LIGHT IN REACH.
[2023-01-29 17:32] VITALS: BP 111/62
[2023-01-29 19:32] VITALS: BP 112/56
[2023-01-30 02:43] VITALS: BP 113/61
--- NOTE | 2023-01-30 04:06 | NUR ---
SHIFT SUMMARY PATIENT HAD NO ACUTE CHANGES. AXOX 4 AND INDEPENDENT IN ROOM. SCHEDULE METHADONE 15 MG GIVEN FOR BLE PAIN. POWERGLIDE MATT INTACT. DENIES SOB AND N/V. VSS/AFEBRILE. DRESSING TO BLE C/D/I. USES URINAL AT INDEPENDENTLY. WATCHED TV FIRST PART OF SHIFT. CALL LIGHT IN REACH. BED IN LOWEST POSITION. WILL CONTINUE TO MONITOR UNTIL DAY SHIFT NURSE ASSUMES CARE.
[2023-01-30 07:26] VITALS: BP 105/57
--- NOTE | 2023-01-30 16:26 | NUR ---
NO ACUTE CHANGES PT AOX4 AND COOPERATIVE OF CARE. PT HAD BILATERAL LEG WRAPS CHANGED PER EMAR. NO DISTRESS NOTED. CALL LIGHT WITHIN REACH WILL CONTINUE TO MONITOR.
[2023-01-30 19:25] VITALS: BP 111/63
--- NOTE | 2023-01-31 04:20 | NUR ---
SHIFT SUMMARY PATIENT HAD NO ACUTE CHANGES. AXOX 4 AND INDEPENDENT IN ROOM. POWERGLIDE MATT INTACT. DENIES CHEST PAIN, SOB, AND N/V. DRESSING TO BLE C/D/I. USES URINAL INDEPENDENTLY. RESTING IN BED WATCHING TV FIRST FEW HOURS OF SHIFT. COOPERATIVE WITH CARE. CALL LIGHT IN REACH. BED IN LOWEST POSITION. WILL CONTINUE TO MONITOR UNTIL DAY SHIFT NURSE ASSUMES CARE.
[2023-01-31 05:14] VITALS: BP 94/54
[2023-01-31 08:14] VITALS: BP 115/59
[2023-01-31 14:34] LABS: Bun/Creatinine Ratio 25.1 (12.0-20.0); Calcium, Blood 8.8 mg/dL (8.5-10.1); Creatinine, Blood 0.88 mg/dL (0.60-1.20); Potassium, Blood 4.1 mmol/L (3.5-5.5)
[2023-01-31 14:36] LABS: BASOPHILS ABSOLUTE AUTO 0.02 K/mm3 (0.00-0.23); BASOPHILS PERCENT AUTO 0 % (0-2); EOSINOPHILS ABSOLUTE AUTO 0.17 K/mm3 (0.00-0.68); EOSINOPHILS PERCENT AUTO 3 % (0-6); Hematocrit 29.7 % (37.0-53.0); Hemoglobin 8.9 g/dL (13.5-17.5); IMMATURE GRAN ABSOLUTE AUTO 0.01 K/mm3 (0.00-0.10); IMMATURE GRAN PERCENT AUTO 0 % (0-1); LYMPHOCYTES ABSOLUTE AUTO 1.71 K/mm3 (0.84-5.20); LYMPHOCYTES PERCENT AUTO 26 % (21-46); MONOCYTES ABSOLUTE AUTO 1.01 K/mm3 (0.16-1.47); MONOCYTES PERCENT AUTO 15 % (4-13); Mean Corpuscular HGB 24.5 pg (26.0-34.0); Mean Corpuscular Volume 82 fL (80-100); Mean Platelet Volume 10.2 fL (9.1-12.4); NEUTROPHILS PERCENT AUTO 56 % (41-73); Platelet Count 264 K/mm3 (150-400); RDW Coefficient Variation 17.3 % (11.7-14.2); RDW Standard Deviation 51.8 fL (35.1-46.3); Red Blood Cell Count 3.63 M/mm3 (4.30-5.90); White Blood Cell Count 6.62 K/mm3 (4.00-11.30)
[2023-01-31 16:59] VITALS: BP 112/64
[2023-01-31 19:09] VITALS: BP 114/68
[2023-02-01 03:17] VITALS: BP 121/59
--- NOTE | 2023-02-01 04:19 | NUR ---
SHIFT SUMMARY PATIENT HAD NO ACUTE CHANGES. AXOX 4 AND INDEPENDENT IN ROOM. POWERGLIDE MATT INTACT. IV ABX INFUSED. DENIES CHEST PAIN, SOB, AND N/V. BLE DRESSINGS C/D/I. REPORTED PAIN TO BLE AND TYLENOL 650 MG GIVEN PER EMAR. CAOOPERATIVE WITH CARE. WATCHES TV FIRST PART OF SHIFT. CALL LIGHT IN REACH. BED IN LOWEST POSITION. WILL CONTINUE TO MONITOR UNTIL DAY SHIFT NURSE ASSUMES CARE.
[2023-02-01 05:06] LABS: Albumin, Blood 2.7 g/dL (3.4-5.0); Anion Gap 1 mmol/L (6-16); Blood Urea Nitrogen 22 mg/dL (8-24); Bun/Creatinine Ratio 25.1 (12.0-20.0); CO2, Blood 28 mmol/L (21-32); Calcium, Blood 8.4 mg/dL (8.5-10.1); Chloride, Blood 106 mmol/L (98-108); Creatinine, Blood 0.88 mg/dL (0.60-1.20); Glomerular Filtration Rate 114 (60-); Glucose, Blood 87 mg/dL (70-99); Phosphorus, Blood 3.9 mg/dL (2.5-4.9); Potassium, Blood 3.9 mmol/L (3.5-5.5); Sodium, Blood 135 mmol/L (136-145)
[2023-02-01 05:23] LABS: BASOPHILS ABSOLUTE AUTO 0.02 K/mm3 (0.00-0.23); BASOPHILS PERCENT AUTO 0 % (0-2); EOSINOPHILS ABSOLUTE AUTO 0.17 K/mm3 (0.00-0.68); EOSINOPHILS PERCENT AUTO 3 % (0-6); Hematocrit 25.5 % (37.0-53.0); Hemoglobin 7.9 g/dL (13.5-17.5); IMMATURE GRAN ABSOLUTE AUTO 0.03 K/mm3 (0.00-0.10); IMMATURE GRAN PERCENT AUTO 0 % (0-1); LYMPHOCYTES ABSOLUTE AUTO 1.35 K/mm3 (0.84-5.20); LYMPHOCYTES PERCENT AUTO 20 % (21-46); MONOCYTES ABSOLUTE AUTO 1.09 K/mm3 (0.16-1.47); MONOCYTES PERCENT AUTO 16 % (4-13); Mean Corpuscular HGB 25.1 pg (26.0-34.0); Mean Corpuscular Volume 81 fL (80-100); Mean Platelet Volume 10.5 fL (9.1-12.4); NEUTROPHILS ABSOLUTE AUTO 4.27 K/mm3 (1.96-9.15); NEUTROPHILS PERCENT AUTO 62 % (41-73); Platelet Count 227 K/mm3 (150-400); RDW Coefficient Variation 17.6 % (11.7-14.2); RDW Standard Deviation 52.4 fL (35.1-46.3); Red Blood Cell Count 3.15 M/mm3 (4.30-5.90); White Blood Cell Count 6.93 K/mm3 (4.00-11.30)
[2023-02-01 07:43] VITALS: BP 94/49
--- NOTE | 2023-02-01 08:05 | NUR ---
LATE NOTE FOR 01/31/23. PT WAS AOX4 AND COOPERATIVE OF CARE. PT REPORTED INCREASED PAIN IN UPPER INNER THIGH. DR BOURGEOIS ORDERD VENOUS DOPPLER AND ADDED MED TO EMAR. PT TOOK SHOWER AND HAD LE REBADAGED PER EMAR. TREATED FOR LEG PAIN PER EMAR. NO DISTRESS NOTED AND CALL LIGHT WITHIN REACH.
[2023-02-01 08:17] VITALS: BP 123/75
--- NOTE | 2023-02-01 15:04 | NUR ---
SHIFT SUMMARY PATIENT IN NO APPARENT DISTRESS TODAY, PAIN TOLERABLE WITH MEDICATION PER EMAR. PATIENT CALLS APPROPRIATELY. WILL CONTINUE TO MONITOR.
--- NOTE | 2023-02-01 15:18 | NUR ---
THIS SURVEILLANCE SUPERVISOR AGREES WITH ASSESSMENT BY PADMINI BRYANT.
[2023-02-01 17:00] VITALS: BP 113/69
--- NOTE | 2023-02-01 18:11 | NUR ---
NO ACUTE CHANGES PT AOX4 AND COOPERATIVE OF CARE. NO DISTRESS NOTED AND ABLE TO MAKE NEEDS KNOWN. CALL LIGHT WITHIN REACH.
[2023-02-01 19:56] VITALS: BP 113/60
[2023-02-02 04:08] VITALS: BP 104/51
--- NOTE | 2023-02-02 05:05 | NUR ---
AUDITOR MEDICAL CLAIMS SUMMARY VSS. IV ANTIBIOTICS CONTINUE ORDERED. BILATERAL FEET DRESSINGS CDI. UP TO BATHROOM AD ROBERT. PAIN MEDS ORDERED ROUTINE - SEE MAR FOR DETAILS. HAS BEEN RESTING QUIETLY WITH FEW INTERRUPTIONS. CALL LIGHT IN REACH. WILL CONTINUE TO MONITOR
[2023-02-02 08:18] VITALS: BP 110/56
--- NOTE | 2023-02-02 11:00 | NUR ---
PT RECEVIED WOUND CARE FROM WOUND CLINIC NURSE KO. WOUNDS CLEANED, UPDATED PHOTOS PLACED IN FOLDER AND NEW DRESSINGS APPLIED. PT HAS MODERATE PAIN TO LEFT LEG, AND REDNESS.
--- NOTE | 2023-02-02 12:56 | NUR ---
PT LEFT LEG ASSESSED BY DR. SEVERINO, NEW ORDERS TO STOP IV ABX AND START PO ABX PLACED. PT CONTIUNES TO HAVE PAIN TO LEFT LEG, MILD SWELLING AND REDNESS. PT POWER GLIDE DUE TO BE REMOVED, DC'D OF POWER GLIDE WITH ORDERS FOR PO ABX.
--- NOTE | 2023-02-02 13:12 | NUR ---
WOUND CARE NEW PHOTOS AND ASSESSMENTS IN HARD CHART. PRIMARY DRESSING CHANGED TO HYDROFERA BLUE TO ASSIST WITH HYPERGRANULATION TISSUE. PT TOLERATED CHANGE WELL
--- NOTE | 2023-02-02 16:30 | NUR ---
SHIFT SUMMARY: PT A&O X4, PLEASANT, ABLE TO MAKE NEEDS KNOWN, AND COMMUNCIATES WITH STAFF. PT IV ABX DC'D AND NEW ORDERS PO ABX PLACE. PT RECEVIED WOUND CARE ROUNDS BY WOUND CARE NURSE KO. PT HAD MODERATE PAIN TO LEFT THIGH DURING THE SHIFT, PT MEDICATED PER EMAR PROTOCOL. PT IN BED MOST OF THE SHIFT, WITH AMBULATION TO THE RESTROOM. PT IN BED WITH CALL LIGHT WITHIN REACH.
[2023-02-02 20:04] VITALS: BP 123/70
--- NOTE | 2023-02-02 22:03 | NUR ---
START OF SHIFT NOTE THIS STUDENT NURSE ASSUMED CARE OF BERNARDO UNDER THE OBSERVATION OF AIDA MAJOR AT 1900 ON 02/02/23. PT VOICED SOME PAIN AND REQUESTED TYLENOL RATHER THAN HIS SCHEDULED METHODONE STATING THAT HAD BEEN RELIEVING HIS PAIN WHEN TAKEN Q6 HOURS. HE REQUESTED HIS MELATONIN TO BE GIVEN AT 2200 RATHER THAN WITH HIS OTHER SCHEDULED MEDICATIONS, AND WILL BE RECEIVING HIS SCHEDULED METHADONE WITH HIS MELATONIN AT 2200 BY NURSE AIDA MAJOR. PATIENT A&O X4 AND IS LEFT IN A POSITION OF COMFORT AND SAFETY. BED RAILS UP, CALL LIGHT WITHIN REACH, FLOOR FREE FROM DEBRIS. NO S/S OF INFECTION SEEN AT THIS TIME.
--- NOTE | 2023-02-03 03:19 | NUR ---
SHIFT SUMMARY THIS STUDENT NURSE ADDRESSED THE PATIENT'S CELLULITIS BY ADMINISTERING THE PRESCRIBED ANTIBIOTICS PO DIRECTED. I MANAGED HIS PAIN CAUSED BY THE CELLULITIS BY ADMINISTERING THE SCHEDULED TYLENOL AND ENSURING THE PATIENT WAS ABLE TO GET EFFECTIVE REST THROUGHOUT THE NIGHT. BY ADDRESSING HIS PAIN AND ADMINISTERING THE PRESCRIBED YOLANDA PACKET THIS STUDENT NURSE PROMOTED WOUND HEALING. PATIENT REMAINED FREE FROM INJURY AND FURTHER INFECTION DURING MY SHIFT. VITAL SIGNS REMAINED STABLE.
[2023-02-03 03:57] VITALS: BP 109/60
--- NOTE | 2023-02-03 07:13 | NUR ---
ASSUMED CARE: PT RESTING QUIETLY AT THIS TIME. CASE MANAGER AT BEDSIDE. NO ACUTE NEEDS OR CONCERNS AT THIS TIME.
[2023-02-03 07:19] VITALS: BP 125/68
--- NOTE | 2023-02-03 09:14 | NUR ---
LAB HAVING DIFFICULTY OBTAINING SAMPLE. SPOKE WITH DR HAMMOND WHO STILL WANTS SAMPLE AND RECOMMENDS PUSHING ORAL FLUIDS AND HAVING LAB TRY AGAIN IN FEW HOURS. STAFF NURSE ICU RESOURCE TEAM AWARE
--- NOTE | 2023-02-03 13:53 | NUR ---
CALL TO WOUND CARE WHO STATED NO INPATIENT CONSULTS TODAY. THIS RN AND 2 NURSING STUDENTS PROVIDED DRESSING CHANGE WITH VITAMIN A AND D CREAM, HYDROFOAM BLUE, KERLEX AND JANET WRAP PER WOUND CARE NURSE INSTRUCTIONS. PT AGREEABLE TO TASK AND ASSISTED WITH LEG MOBILITY.
[2023-02-03 15:23] VITALS: BP 110/62
--- NOTE | 2023-02-03 17:59 | NUR ---
SHIFT SUMMARY: PT'S WOUND CARE DRESSINGS COMPLETED THIS SHIFT. MEDICATED FOR PAIN ABLE PER ORDERS. AWAITING DISCHARGE PLACEMENT. CARE MANAGEMENT WORKIN ON THIS. INDEPENDENT IN ROOM. NO ACUTE NEEDS OR CONCERNS.
[2023-02-03 19:28] VITALS: BP 126/69
[2023-02-04 02:53] VITALS: BP 109/61
--- NOTE | 2023-02-04 05:41 | NUR ---
SHIFT SUMMARY PATIENT HAD NO ACUTE CHANGES. AXOX 4 AND INDEPENDENT IN ROOM. WOUND DRESSING BLE C/D/I. REPORTED BLE PAIN X TWO AND TYLENOL 650 MG GIVEN EACH TIME. NO IV ACCESS. ON ROOM AIR. VSS/AFEBRILE. DENIES CHEST PAIN, SOB, AND N/V. COOPERATIVE WITH CARE. CALL LIGHT IN REACH. BED IN LOWEST POSITION. WILL CONTINUE TO MONITOR UNTIL DAY SHIFT NURSE ASSUMES CARE.
[2023-02-04 07:17] VITALS: BP 107/59
[2023-02-04 15:06] VITALS: BP 110/66
--- NOTE | 2023-02-04 16:17 | NUR ---
NURSING SUMMARY FOR DAY SHIFT. INTRODUCED TO THE PATIENT AND COMPLETED MORNING ASSESSMENT AND MEDPASS. PATIENT SEEMED TO BE IN GOOD SPIRIT AND SHOWED NO SIGNS OF AGITATION. THE PATIENT DESCRIBED HIS PAIN AND THEN WAS UNEVENTFUL FOR MOST OF THE DAY. HOWEVER, AROUND 1400 HE HAD SOME BREAKTHROUGH PAIN WHICH WAS TREATED BY FELLOW NURSE ELIE VIA ONE TIME DOSE OF TYLENOL PRN. PAIN MANAGEMENT WAS ALSO FOLLOWED UP ON AN HOUR POST ADMINISTRATION WHICH SEEMED TO RESOLVE. DURING ROUNDING I NOTICED VISITORS CAME TO VISIT AND FOLLOWING THAT VISIT I HAD A PLEASENT CONVERSATION ABOUT A TV SHOW AND PROVIDED EDUCATION ON THE CARDIOVACULAR SYSTEM. PATIENT HAS BEEN UNEVENTFUL AND PLEASENT TO CARE FOR OTHERWISE.
[2023-02-04 19:36] VITALS: BP 118/63
[2023-02-05 03:52] VITALS: BP 109/73
--- NOTE | 2023-02-05 04:04 | NUR ---
SHIFT SUMMARY ADMITTED FOR BLE CELLULITIS. FULL CODE. DELAY IN PLACEMENT. DAILY DRESSING CHANGES. DR. MAN IS IR CONSULT. DR. GALINDO IS ORTHO CONSULT. I&D PERFORMED 12/01/22, BILAT VENOUS ABLATIONS COMPLETED. HE IS HOMELESS. HX OF SUBSTANCE ABUSE, HEP C. HX OF CHRONIC BLE WOUNDS, DM2. ON RA. INDEPENDENT IN ROOM. A&O X4.
[2023-02-05 07:45] VITALS: BP 109/63
--- NOTE | 2023-02-05 15:46 | NUR ---
SHIOFT SUMMARY: NO NEW ACUTE CHANGES IN PATIENT CONDITION THIS SHIFT. PATIENT A&OX4. CALM, PLEASANT AND COOPERATIVE c CARE. CELLULITIS TO BLE'S DRESSING CHANGED TODAY 02/05/23 BY LAYLA WOUND CARE NURSE. VITAL SIGNS REVIEWED. RECEIVED SCHEDULED MEDS PER EMAR. NO PIV ACCESS PER ORDER. AWAITING FOR SAFE PLACEMENT. CALL LIGHT IN REACH.
[2023-02-05 16:25] VITALS: BP 109/61
[2023-02-05 19:27] VITALS: BP 118/66
--- NOTE | 2023-02-06 04:21 | NUR ---
SHIFT SUMMERY, PT RESTING IN BED, PT GIVEN A HS SNACK BEFORE BED TIME. CALL LIGHT IN REACH. PT UP AT ROBERT TO BR.
[2023-02-06 05:21] VITALS: BP 112/69
[2023-02-06 07:34] VITALS: BP 106/65
[2023-02-06 15:01] VITALS: BP 105/59
--- NOTE | 2023-02-06 17:37 | NUR ---
Shift summary: Wyatt A&O x 3, Adlib in room during the day. Makes his needs known verbally, uses his call light. VSS, HRR. Denies any chest pain or discomfort. Edema 1+ BLE. No SOB. Lung sounds clear all [place]. No cough or respiratory distress. Bowel tones present all 4 quadrants, good appetite and po fluid intake. BLE wounds continue to heal. Dressings changed Bilaterally per, patient tolerated well. Ambulates in room without assistance with no new injuries. Good strength, repositons self in bed. Pain managed currently with Methadone 15mg BID and Prn Tylenol 650mg po q 6 hours for pain. He is sitting on his bed passing the time watching tv with his bed remote and call light within reach.
[2023-02-06 19:06] VITALS: BP 109/62
--- NOTE | 2023-02-07 03:33 | NUR ---
SHIFT SUMMARY NOC PT A/O X 4. PLEASANT AND COOPERATIVE WITH CARE. NO ACUTE CHANGES TO REPORT. PT HAD DRESSING CHANGED DURING DAY SHIFT AND ARE C/D/I. PT RECEIVED SCHEDULED EVENING METHADOSE AND PRN TYLENOL TO MANAGE BLE PAIN. PT STILL HAS PENDING INTERVIEWS FOR POSSIBLE SNF PLACEMENT. PT IS CURRENTLY RESTING WITH BED IN LOWEST POSITION, AND CALL LIGHT WITHIN REACH.
[2023-02-07 03:42] VITALS: BP 108/58
[2023-02-07 07:27] VITALS: BP 103/61
[2023-02-07 15:04] VITALS: BP 101/63
--- NOTE | 2023-02-07 16:12 | NUR ---
WOUND CARE: REMOVED DRESSING BLE AND CLEANSED WITH SKININTEGRITY CLEANSER, PAT DRY. A&D OINTMENT TO PERIWOUND AREA, HYRDROFERA BLUE TO WOUND BED AND COVERED WITH ABD PAD. WRAPPED WITH KERLIX AND SECURED WITH JANET BANDAGE. PATIENT TOLERATED DRESSING CHANGE WELL. MEDICATED PRIOR TO DRESSING CHANGE WITH PRN TYLENOL PO 650MG WHICH WAS EFFECTIVE.
--- NOTE | 2023-02-07 20:47 | NUR ---
2025 PT REPORTS THROBBING PAIN IN L LEG 04/26, FACE LOOKS LIKE 02/24. TOOK SCHEDULED METHADONE, DECLINED PRN TYLENOL FOR NOW. WILL EVAL FOR EFFECT. WOUNDS TO LE'S, DRESSINGS COVERING ENTIRE LEGS, C/D/I. PT DENIES NEED FOR ANYTHING ELSE AT THIS TIME. NO OTHER APPARENT SIGNS OF DISTRESS. CALL LIGHT IS IN REACH.
--- NOTE | 2023-02-08 01:32 | NUR ---
02/07/23 2200 PT LYING IN BED, WATCHING TV. NO APPARENT SIGNS OF DISTRESS. CALL LIGHT IS IN REACH.
--- NOTE | 2023-02-08 01:33 | NUR ---
0000 PT LYING IN BED, AWAKE, WATCHING TV. NO APPARENT SIGNS OF DISTRESS. CALL LIGHT IS IN REACH.
--- NOTE | 2023-02-08 01:33 | NUR ---
PT LYING IN BED, EYES CLOSED, APPEARS TO BE RESTING. BREATHING IS EVEN, UNLABORED. NO APPARENT SIGNS OF DISTRESS. CALL LIGHT IS IN REACH.
[2023-02-08 03:07] VITALS: BP 110/61
--- NOTE | 2023-02-08 04:38 | NUR ---
PT LYING IN BED, EYES CLOSED, APPEARS TO BE RESTING. WAKES EASILY TO VERBAL STIMULI. NO APPARENT SIGNS OF DISTRESS. CALL LIGHT IS IN REACH.
--- NOTE | 2023-02-08 04:39 | NUR ---
PT IS AAO X 4, ON RA, NO IV/OK TO LEAVE OUT. WOUNDS TO LE'S W/DRESSINGS THAT ARE C/D/I. PT REPORTED PAIN TO L LEG, GOT SCHEDULED METHADONE.
--- NOTE | 2023-02-08 05:46 | NUR ---
PT LYING IN BED, EYES CLOSED, APPEARS TO BE RESTING. BREATHING IS EVEN, UNLABORED. NO APPARENT SIGNS OF DISTRESS. CALL LIGHT IS IN REACH. NO OTHE CHANGES THIS SHIFT.
[2023-02-08 07:34] VITALS: BP 109/62
[2023-02-08 16:31] VITALS: BP 118/62
--- NOTE | 2023-02-08 18:41 | NUR ---
PT QUITE PLEASANT AND RESPECTFUL TODAY. NO NEW CONCERNS NOTED THISDAY. LUNGS CLEAR, H/R REG, LEGS WRAPPED. A/O X4. WOUND CENTER CONTACTED FLOOR AND STATES NOT ABLE TO CHANGE TODAY. I WAS NOT ABLE TO ACCOMPLISH TODAY. PASSING TO ALY BRYANT. BED IN LOW POSITION, CALL LITE IN REACH, CALLS APPROP
[2023-02-08 19:01] VITALS: BP 108/68
--- NOTE | 2023-02-09 05:21 | NUR ---
SUMMARY: NO ACUTE EVENTS OVERNIGHT. COMPLETED WOUND CARE OVERNIGHT. PATIENT INDEPENDENT IN ROOM. PLEASANT WITH STAFF. VSS. CALLS APPROPRIATELY.
[2023-02-09 07:23] VITALS: BP 117/67
[2023-02-09 15:07] VITALS: BP 100/49
[2023-02-09 20:02] VITALS: BP 130/82
[2023-02-10 04:50] VITALS: BP 114/65
--- NOTE | 2023-02-10 05:07 | NUR ---
SHIFT SUMMARY NOC PT A/O X 4. PLEASANT AND COOPERATIVE WITH CARE. PT HAD BLE DRESSING CHANGED BY MECHANIC/WELDER DURING DAY SHIFT, DRESSING REMAINS C/D/I. NO ACUTE CHANGES TO REPORT. PT WORKING WITH [facility] IN [place] FOR PLACEMENT (SEE CARE MANAGE NOTE). PT IS CURRENTLY RESTING WITH BED IN LOWEST POSITION, AND CALL LIGHT WITHIN REACH.
[2023-02-10 07:31] VITALS: BP 106/68
--- NOTE | 2023-02-10 13:04 | NUR ---
WOUND CARE NEW PHOTOS AND ASSESSMENTS IN HARD CHART. WOUNDS CONTINUE TO IMPROVE. WEEPING GREATLY DECREASED WITH BL VENOUS ABLATIONS. PT WILL NOT NEED DAILY DRESSING AT THIS POINT. FOUR LAYER COMPRESSION APPLIED. FREQUENCY 3X WEEK. IF DRESSINGS REMAIN DRY WILL REDUCE TO 2X WEEK. SILVER NITRATE TO HYPERGRANULATION TODAY. PT ENCOURAGED TO TAKE SMALL WALKS IN HALLWAY. PT DOES REPORT SOME ANXIETY ABOUT UPCOMING DC THIS RN PROVIDED THERAPUTIC LISTENING AND WORDS OF ENCOURAGEMENT.
[2023-02-10 16:33] VITALS: BP 114/74
--- NOTE | 2023-02-10 18:39 | NUR ---
SUMMARY- NO ACUTE EVENTS THIS SHIFT. PT'S PAIN CONTROLLED WELL WITH MEDS.
[2023-02-10 19:27] VITALS: BP 108/68
--- NOTE | 2023-02-11 05:26 | NUR ---
BROACHING MACHINE REPAIRER SUMMARY NO ACUTE EVENTS/CHANGES. PT INDEPENDENT IN ROOM. ABLE TO MAKE NEEDS KNOWN.
--- NOTE | 2023-02-11 17:02 | NUR ---
SHIFT SUMMARY INDPENDENT IN ROOM. DRESSINGS INTACT TO BLE'S. PULSES POSITIVE. SCHEDULED PAIN MEDS EFFECTIVE FOR PAIN. REPORTS NO DISTRESS TODAY.
[2023-02-11 19:10] VITALS: BP 116/64
[2023-02-12 03:48] VITALS: BP 100/63
--- NOTE | 2023-02-12 03:54 | NUR ---
MAXILLOFACIAL PROSTHODONTIST SUMMARY A/OX4. PLEASANT AND COOPERATIVE. INDEPENDENT. NO ACUTE CHANGES. PT EXRESSED DISAPOINTMENT ABOUT DROP IN METHATDONE TO 10MG (FROM 15MG). ABLE TO MAKE NEEDS KNOWN. VSS.
[2023-02-12 08:43] VITALS: BP 104/70
[2023-02-12 15:08] VITALS: BP 118/77
--- NOTE | 2023-02-12 16:31 | NUR ---
SHIFT SUMMARY PT A&OX4 AND IN PLEASENT MOOD T/O SHIFT. WOUND CARE NURSE INTO CHANGE BANDAGES THIS SHIFT, CDI. PT IND IN ROOM. RA. TOLERATING PO INTAKE WELL. CALL LIGHT W/IN REACH. AWAITING [facility] PER REPORT.
[2023-02-12 19:32] VITALS: BP 108/64
[2023-02-13 02:48] VITALS: BP 90/53
[2023-02-13 02:50] VITALS: BP 98/59
--- NOTE | 2023-02-13 06:40 | NUR ---
Shift Summary PT AOx4, pleasant mood. Stated pain in BLE was 2/10, no request for pain medication. Dressings remaind C/D/I. Pt slept well t/o the night. VSS.
[2023-02-13 07:13] VITALS: BP 110/65
--- NOTE | 2023-02-13 09:00 | NUR ---
pt layinging in bed watching tv, reports pain this am at 8/10, he was medicated, a/ox3, pleasant and cooperative with care, follows commands well, lungs clear on r/a, hrr, b/l legs wrapped in dressing, wound care nurse taking care of dressings, voids without diff, maew, up ad andrei, waiting for placement, call light in reach.
[2023-02-13 15:08] VITALS: BP 104/60
--- NOTE | 2023-02-13 18:19 | NUR ---
pt denies any complaints, dressings are intact, no drainage noted, no needs, uneventful day, call light in reach.
[2023-02-13 19:45] VITALS: BP 115/65
--- NOTE | 2023-02-14 04:27 | NUR ---
SHIFT SUMMARY- PT IS A/O, PLESANT AND COOPERATIVE. HE SLEPT FOR THE DURATION OF THIS SHIFT. BED IS IN THE LOW POSITON AND CALL LIGHT IS WITIN REACH.
[2023-02-14 05:26] VITALS: BP 118/56
[2023-02-14 08:03] VITALS: BP 100/60
--- NOTE | 2023-02-14 09:13 | NUR ---
pt sitting up in bed watching tv, states he didn't sleep well last night due to pain, a/ox3, cooperative with care, follows commands well, reports pain this am at 3/10, has a good appetite, no complaints, lungs are clear t/o, on r/a, no cought noted, hrr, +1 edema noted to b/l le, legs are wrapped in dressings from ankle to knees, scant drainage to back of left leg, wound care nurse is managing dressing changes, up indep in room, hortensia, call light in reach.
[2023-02-14 15:42] VITALS: BP 120/74
--- NOTE | 2023-02-14 18:41 | NUR ---
pt had an uneventful day, no acute changes this shift. call light in reach.
[2023-02-14 20:09] VITALS: BP 115/66
--- NOTE | 2023-02-15 05:24 | NUR ---
NO CHANGES OVERNIGHT FOR . SCHEDULED PAIN REGIMEN KEPT HIM COMFORTABLE AND ALLOWED HIM TO GET A GOOD NIGHTS SLEEP. BILATERAL LOWER EXTREMITY DRESSINGS BOTH CLEAN DRY AND INTACT. VOIDING IN BATHROOM WITHOUT DIFFICULTY. LAST BOWEL MOVEMENT 02/13. LOOKING FORWARD TO TRANSFER TO NEW FACILITY ON WEDNESDAY.
[2023-02-15 05:59] VITALS: BP 93/44
[2023-02-15 08:01] VITALS: BP 107/68
[2023-02-15 15:31] VITALS: BP 113/64
[2023-02-15 19:25] VITALS: BP 108/62
--- NOTE | 2023-02-15 19:31 | NUR ---
END OF SHIFT SUMMARY: PATIENT REPORTED 5/10 PAIN IN HIS BLE TODAY. MEDICATED PER SCHEDULDED MEDICATINO ORDERS. PATIENT REPORTED THAT HE ELEVATES HIS LEGS TO ASSIST. PATIENT'S DRESSINGS CHANGED TODAY BY LAYLA IT APPLICATION ARCHITECT. PATIENT IS CALM AND COOPERATIVE WITH CARE. HE IS ABLE TO EASILY MAKE HIS NEEDS KNOWN. PATIENT REPORTS THAT HE IS EXCITED FOR HIS DISCHARGE PLAN THIS WEEK. PATIENT INDEPENDENT WITH CARE IN THE ROOM.
[2023-02-16 02:30] VITALS: BP 112/64
--- NOTE | 2023-02-16 04:18 | NUR ---
FOOD STOREROOM CLERK SUMMARY NO ACUTE EVENTS THROUGHOUT THE NIGHT. A&OX4. PATIENT EFFECTIVELY COMMUNICATES NEEDS. VSS. RR EVEN AND UNLABORED ON RA. BILATERAL LEG WRAPS C/D/I. CALL LIGHT WITHIN REACH. BED LOW AND LOCKED. THIS RN WILL CONTINUE TO MONITOR.
[2023-02-16 07:27] VITALS: BP 113/61
[2023-02-16 15:14] VITALS: BP 110/65
--- NOTE | 2023-02-16 15:29 | NUR ---
SHIFT SUMMARY NO ACUTE CHANGES TO PRESENT THIS SHIFT. PT SLEEPING AT START OF SHIFT. WOKE EASILY FOR CARE. PT'S LEGS CONTINUE TO HEAL; WOUND DRSG CHANGES PER APARTMENT PROPERTY MANAGER AGAIN TODAY. PT UP INDEPENDENTLY IN AND TO [facility]. PER REPORT, PT TO D/C SOON TO [facility] IN [place]. CALL LT IN REACH. ABLE TO MAKE NEEDS KNOWN.
[2023-02-16 19:07] VITALS: BP 107/69
--- NOTE | 2023-02-17 02:55 | NUR ---
SHIFT SUMMARY NOC PT A/O X 4. PLEASANT AND COOPERATIVE WITH CARE. NO ACUTE CHANGES TO REPORT. VSS. PT RECEIVED PAIN RX AT BEDTIME ALONG WITH METHADONE FOR BLE PAIN. PT DRESSING WERE CHANGED BY METAL AND PLASTIC HEATER DURING DAY SHIFT YESTERDAY AND REMAIN C/D/I. PT DENIES N/T IN BLE. PT EXPECTED TO DISCHARGE TO [facility] IN [place] ON 02/18/23. PT REPORTS BEING GLAD TO BE GETTING OUT OF HOSPITAL. PT IS CURRENTLY RESTING WITH BED IN LOWEST POSITION, AND CALL LIGHT WITHIN REACH.
[2023-02-17 05:06] VITALS: BP 114/65
[2023-02-17 07:47] VITALS: BP 100/70
[2023-02-17 15:46] VITALS: BP 107/56
--- NOTE | 2023-02-17 16:15 | NUR ---
SHIFT SUMMARY NO ACUTE CHANGES TO PRESENT THIS SHIFT. PT UP INDEPENDENTLY IN [facility] AND TO [facility]. DRSGS ON BLE'S REMOVED SO PT COULD SHOWER. LINENS CHANGED WHILE PT IN SHOWER. STAPLE LASTER LATER HERE TO PLACE NEW DRSG'S TO BLE'S. PT TO D/C TO [facility] TOMORROW. PLEASANT AND CO-OP WITH CARE, ABLE TO MAKE NEEDS KNOWN.
[2023-02-17 19:43] VITALS: BP 112/70
[2023-02-18 03:18] VITALS: BP 105/56
--- NOTE | 2023-02-18 03:29 | NUR ---
ANOTHER UNEVENTFUL EVENING FOR MR MEJIA. HE IS EXCITED ABOUT HIS UPCOMING TRANSFER TO [place] FOR CONTINUED CARE. WOUND DRESSINGS HAVE REMAINED CLEAN DRY AND INTACT OVERNIGHT. PAIN WELL MANAGED WITH SCHEDULED METHADONE
[2023-02-18 07:40] VITALS: BP 91/55
[2023-02-18 08:45] VITALS: BP 110/76
[2023-02-18 15:24] VITALS: BP 105/59
--- NOTE | 2023-02-18 17:27 | NUR ---
SHIFT SUMMARY NO ACUTE CHANGES DURING SHIFT. PT ALERT AND ORIENTED, CALLS APPROPRIATELY. PT REMAINS ON RA, INDEPENDENT IN ROOM. DRESSING CDI, WOUND CARE CHANGING DRESSINGS 2-3X/WEEK. PT TO BE DISCHARGED TO FACILITY IN THE NEAR FUTURE. PAIN UNDER CONTROL. WILL CONTINUE TO MONITOR. CALL LIGHT WITHIN REACH.
[2023-02-18 19:12] VITALS: BP 122/88
--- NOTE | 2023-02-19 03:46 | NUR ---
NO CHANGES WITH BERNARDO. HE IS SINCERELY HOPING HE WILL BE ABLE TO DISCHARGE TODAY PLANNED.
[2023-02-19 04:26] VITALS: BP 110/70
[2023-02-19 07:37] VITALS: BP 98/52
[2023-02-19 15:53] VITALS: BP 109/64
--- NOTE | 2023-02-19 17:02 | NUR ---
SHIFT SUMMARY NO ACUTE CHANGES DURING SHIFT. PT ALERT AND ORIENTED, CALLS APPROPRIATELY. PT ON RA, INDEPENDENT IN ROOM. DRESSINGS TO BLE'S CHANGED BY WOUND CARE NURSE TODAY. MEDICATED WITH PRN TYLENOL X 1 DURING SHIFT, EFFECTIVE. NO OTHER NEEDS VOICED. WILL CONTINUE TO MONITOR. CALL LIGHT WITHIN REACH.
[2023-02-19 19:22] VITALS: BP 125/70
[2023-02-20 03:35] VITALS: BP 148/80
--- NOTE | 2023-02-20 05:13 | NUR ---
SHIFT SUMMARY 37 YR M ADMITTED ON 11/04/22 FOR BLE CELLULITIS. FULL CODE. NO ACUTE CHANGES THIS SHIFT. PT C/O HEADACHE AND WAS MEDICATE TWICE W/ TYLENOL. HE STATES HE IS EXCITED TO TRANSFER TO [facility] IN [place] ON WEDNESDAY AND BEGIN THE NEXT PHASE OF HIS LIFE. HE HAS EXPRESSED A DESIRE TO STAY DRUG FREE AND TO "DO SOMETHING" WITH HIS LIFE.
[2023-02-20 07:45] VITALS: BP 111/64
--- NOTE | 2023-02-20 16:23 | NUR ---
SHIFT SUMMARY: NO NEW CHANGES IN PATIENT CONDITION THIS SHIFT. A&OX4. CALM, PLEASANT AND COOPERATIVE c CARE. REPORTS PAIN TO BLE'S, MEDICATED X1 c TYLENOL c GOOD EFFECT. DRESSING TO BLE'S C/D/I. AMBULATES IN ROOM INDEPENDENTLY. RECEIVED SCHEDULED MEDS PER EMAR. VITAL SIGNS REVIEWED. CALL LIGHT IN REACH.
[2023-02-20 16:33] VITALS: BP 121/78
[2023-02-20 21:16] VITALS: BP 110/64
--- NOTE | 2023-02-21 04:32 | NUR ---
SHIFT SUMMARY 37 YR M ADMITTED SINCE 11/04/22 FOR BLE CELLULITIS. NO ACUTE CHANGES THIS SHIFT. PT STATES HE IS LOOKING FORWARD TO DISCHARGING TO THE [facility] IN [place] ON WEDNESDAY BUT THAT HE IS ALSO A BIT NERVOUS. THIS SHIFT HE C/O TOOTH PAIN AND WAS GIVEN TYLENOL WHICH HE SAID HELPED.
--- NOTE | 2023-02-21 06:01 | NUR ---
ASSUMED CARE OF PT AT 0540 FROM AMARILIS MENDOZA RN. REPORT RCVD. PT STABLE AND SLEEPING AT THIS TIME.
[2023-02-21 07:38] VITALS: BP 119/68
[2023-02-21 14:48] VITALS: BP 113/70
--- NOTE | 2023-02-21 18:23 | NUR ---
SHIFT SUMMARY PT IS ALERT AND ORIENTED X4. NO ACUTE CHANGES THIS SHIFT
[2023-02-21 19:44] VITALS: BP 107/69
[2023-02-22 03:26] VITALS: BP 113/69
--- NOTE | 2023-02-22 05:11 | NUR ---
NIGHT SUMMARY NO ACUTE CHANGES. PT ABLE TO MAKE NEEDS KNOWN. CALL LIGHT ACCESSIBLE. DRESSING TO LLE SATURATING THOUGH. REPLACED PAPER CHUCKS. WOUND NURSE TO COME TODAY.
[2023-02-22 07:37] VITALS: BP 105/64
[2023-02-22] MEDS ORDERED: Acetaminophen325 M1 PO (10:55)
[2023-02-22] MEDS ORDERED: JUVEN PACKET1 EAC3 PO (10:56)
[2023-02-22] MEDS ORDERED: MELATONIN5 M1 PO (10:56)
[2023-02-22] MEDS ORDERED: METH10 PO ×2 (10:58)
[2023-02-22] MEDS ORDERED: ERGO400 PO (10:59)
--- NOTE | 2023-02-22 15:44 | NUR ---
DISCHARGE SUMMARY: PT EDUCATED ON DISCHARGE PLAN AND MEDICATIONS. HARD SCRIPTS SENT WITH PATIENT. PT JOSUE. PT ASSISTED WITH PACKING UP ALL HIS BELONGINGS AND PT ESCORTED TO [facility] VIA WHEELCHAIR. PT DENIES CONCERNS OR NEEDS FOR HIS RIDE TO [employer] [facility]/.
== END 2023-02-22 15:05 | disposition home health service (06) | DRG 570 ==
LOC: ER 08:51 → MEDS 14:41 → ENPENDDIS 02-22 10:22 → MEDS 02-22 15:05
PROVIDERS: Family Medicine; Internal Medicine; Nurse Practitioner Acute Care; Orthopaedic Surgery; Physician Assistant; Student in an Organized Health Care Education/Training Program; ADMIT Family Medicine
PROC: 0JBN0ZZ Excision of Right Lower Leg Subcutaneous Tissue and Fascia, Open Approach (ICD-10-PCS; 2022-12-01)
PROC: 0JBP0ZZ Excision of Left Lower Leg Subcutaneous Tissue and Fascia, Open Approach (ICD-10-PCS; 2022-12-01)
PROC: 30233N1 Transfusion of Nonautologous Red Blood Cells into Peripheral Vein, Percutaneous Approach (ICD-10-PCS; principal; 2022-12-01 15:30)
PROC: 065P3ZZ Destruction of Right Saphenous Vein, Percutaneous Approach (ICD-10-PCS; 2023-01-19)
PROC: 065Q3ZZ Destruction of Left Saphenous Vein, Percutaneous Approach (ICD-10-PCS; 2023-02-01)
DX: L03.115 Cellulitis of right lower limb (principal); G92.8 Other toxic encephalopathy; N17.9 Acute kidney failure, unspecified; I87.2 Venous insufficiency (chronic) (peripheral); L03.116 Cellulitis of left lower limb; Z28.82 Immunization not carried out because of caregiver refusal; N18.30 Chronic kidney disease, stage 3 unspecified; E83.51 Hypocalcemia; E88.09 Other disorders of plasma-protein metabolism, not elsewhere classified; D53.9 Nutritional anemia, unspecified; D50.9 Iron deficiency anemia, unspecified; E16.2 Hypoglycemia, unspecified; E87.6 Hypokalemia; K02.9 Dental caries, unspecified; L97.519 Non-pressure chronic ulcer of other part of right foot with unspecified severity; L97.529 Non-pressure chronic ulcer of other part of left foot with unspecified severity; Z59.00 Homelessness unspecified; T43.625A Adverse effect of amphetamines, initial encounter; H60.91 Unspecified otitis externa, right ear; F11.10 Opioid abuse, uncomplicated; F15.10 Other stimulant abuse, uncomplicated; Z86.19 Personal history of other infectious and parasitic diseases; Z79.2 Long term (current) use of antibiotics; Z79.84 Long term (current) use of oral hypoglycemic drugs; Z79.899 Other long term (current) drug therapy
CPT/HCPCS: 36415; 73701; 80048; 80053; 80069; 82607; 82728; 82746; 82947; 83036; 83540; 83550; 83605; 83735; 84100; 85014; 85018; 85025; 85027; 85045; 86140; 86850; 86900; 86901; 86923; 87040; 87070; 87075; 87077; 87186; 87205; 93922; 93925; 93970; 93971; 96374-59; 97110; 97161; 99285-25; A9270; C1751; G0480; J0295; J0690; J1100; J1170; J1650; J1750; J1885; J2250; J2270; J2370; J2405; J2543; J2704; J2916; J3010; J3370; J7030; J7050; P9016; Q9967